=== PATIENT | male | born 1960 | race Caucasian/White ===

== ENCOUNTER → 2016-05-02 | Outpatient (CLI) | payer BC ==
--- NOTE | 2016-05-02 12:38 | DIAGNOSTIC IMAGING REPORT ---
KUB CLINICAL HISTORY: R10.9 Left flank [id number] pain COMPARISON STUDY: No previous studies for comparison. FINDINGS: Nonobstructive bowel pattern. Several punctate renal calcifications bilaterally. Benign bone island medial aspect right iliac wing. Nonobstructive bowel pattern. IMPRESSION: Bilateral nephrocalcinosis. Nonobstructive bowel pattern. Electronically signed by: Leonardo Mock M.D. 05/02/2016 12:37 PM Dictated Date/Time: 05/02/2016 12:35 PM
== END | disposition home or self-care (01) ==
LOC: C.RAD 11:44
PROVIDERS: ATTEND Family Medicine
DX: R10.9 Unspecified abdominal pain (principal); E83.59 Other disorders of calcium metabolism; N29 Other disorders of kidney and ureter in diseases classified elsewhere

== ENCOUNTER → 2016-05-02 | Outpatient (CLI) | payer BC ==
[2016-05-02 18:44] LABS: URINE APPEARANCE CLEAR (CLEAR); URINE BILIRUBIN NEG (NEG); URINE COLOR DK YELLOW; URINE NITRITE NEG (NEG); URINE PH 5.5 (4.5-7.5); UROBILINOGEN NEG (NEG)
[2016-05-02 18:55] LABS: MANUAL MICROSCOPIC REQUIRED? NO; REVIEW REQ? NO
== END | disposition home or self-care (01) ==
LOC: C.LABSPEC 17:33
PROVIDERS: ATTEND Family Medicine
DX: R10.9 Unspecified abdominal pain (principal)

== ENCOUNTER → 2016-05-08 | Outpatient (CLI) | payer BC ==
--- NOTE | 2016-05-08 15:35 | DIAGNOSTIC IMAGING REPORT ---
ABDOMEN AND PELVIS CT WITHOUT CONTRAST CT DOSE: 1530.45 mGy.cm HISTORY: Flank pain R10.9 Left flank [id number] TECHNIQUE: Multiaxial CT images of the abdomen and pelvis were performed without contrast. COMPARISON STUDY: None. FINDINGS: Lung bases are clear. Liver spleen and pancreas are unremarkable. High density bile versus gallstones are present within the gallbladder lumen. There is a 3 mm calcification lower pole right kidney considered nonobstructing. There is no evidence for an obstructing urinary tract calculus. Bowel pattern is considered nonobstructive. The appendix is normal. There are findings of diffuse colonic diverticulosis is present with prominent in the sigmoid. No well-defined evidence for acute diverticulitis present. Bladder is midline. IMPRESSION: 1. Diffuse colonic diverticulosis with no evidence of diverticulitis. 2. 3 mm nonobstructing calculus lower pole right kidney. 3. No evidence for an obstructing urinary tract calculus. 4. Normal appendix. 5. High density bile versus gallstones within the gallbladder lumen. Electronically signed by: Leonardo Mock M.D. 05/08/2016 3:33 PM Dictated Date/Time: 05/08/2016 3:27 PM
== END | disposition home or self-care (01) ==
LOC: C.CTS 15:16
PROVIDERS: ATTEND Family Medicine
DX: R10.9 Unspecified abdominal pain (principal); N20.0 Calculus of kidney

== ENCOUNTER → 2016-06-04 | Outpatient (CLI) | payer BC ==
--- NOTE | 2016-06-04 08:40 | DIAGNOSTIC IMAGING REPORT ---
BILIARY ULTRASOUND CLINICAL HISTORY: Abdominal pain COMPARISON STUDY: CT scan dated 04/30/2016 FINDINGS: No focal hepatic masses are visualized. There is no intrahepatic biliary ductal dilatation. The gallbladder contains sludge and calculi. The pancreas appears sonographically normal. There is no gallbladder wall thickening. There is no pericholecystic fluid. The common buttock measures 6 mm. There is no right-sided hydronephrosis. There is a 5 mm echogenic focus within the lower pole the right kidney, likely representing a calculus. IMPRESSION: 1. Cholelithiasis 2. 6 mm common bile duct 3. Right-sided nephrolithiasis Electronically signed by: Deniz Saldaña M.D. 06/04/2016 8:38 AM Dictated Date/Time: 06/04/2016 8:25 AM
== END | disposition home or self-care (01) ==
LOC: C.ULTRBC 07:37
PROVIDERS: ATTEND Family Medicine
DX: R10.9 Unspecified abdominal pain (principal); K80.20 Calculus of gallbladder without cholecystitis without obstruction; N20.0 Calculus of kidney

== ENCOUNTER 2017-02-06 05:07 | Inpatient (IN) | payer BC ==
[~2017-02-06] VITALS: Ht 172.7 cm; Wt 84.0 kg
[2017-02-06] MEDS ORDERED: HYDROmorphone INJ 1 MG/ML SYR IV STA (05:28)
[2017-02-06] MEDS ORDERED: ONDANSETRON INJ 2 MG/ML 2 ML VIAL IV STA (05:28)
--- NOTE | 2017-02-06 05:36 | EMERGENCY ROOM VISIT NOTE ---
History Report prepared by Allyssa: Davin Almonte Under the Supervision of: Dr. Lorene Nesbitt D.O. First contact with patient: 05:18 Chief Complaint: ABDOMINAL PAIN Stated Complaint: STOMACH, BACK PAIN-CAN'T KEEP DOWN WATER History of Present Illness The patient is a 56 year old male who presents to the Emergency Room with complaints of worsening abdominal pain starting two nights ago. The patient states that the pain got much worse around 2100 last night. He states that last night the pain became extreme in the middle of his abdomen, and he is having bloating and left sided back pain. He additionally notes that he had some chills , he was sweating, vomiting, leg cramping, and a sore throat from the vomiting. The patient denies any diarrhea, leg swelling, and any recent alcohol use. He reports that he has been urinating well, though it has been dark. The patient states that he currently has gall stones, and he has left kidney stones. The patient has no history of abdominal surgery. He states that yesterday he had toast and a tangerine for breakfast, and then he had macaroni and cheese for lunch. Source of History: patient Onset: two nights ago Position: abdomen Symptom Intensity: extreme Timing: worsening Associated Symptoms: + chills, + diaphoresis, + sorethroat, + vomiting, + back pain, No diarrhea Note: Associated symptoms: leg cramping and bloating Review of Systems See HPI for pertinent positives & negatives. A total of 10 systems reviewed and were otherwise negative. Past Medical & Surgical Medical Problems: (1) Cholangitis (2) Cholelithiasis (3) Hepatitis (4) HTN (hypertension) (5) Nephrolithiasis Family History Hypertension Kidney disease Kidney stones Social History Smoking Status: Never Smoker Marital Status: Housing Status: lives with family Occupation Status: employed Current/Historical Medications Scheduled Aspirin (Aspirin Ec), 81 MG PO DAILY Ezetimibe (Zetia), 10 MG PO DAILY Fluticasone Propionate (Nasal) (Flonase Allergy Relief), 1 SPRAY STEPHANIE BID Lisinopril (Prinivil), 20 MG PO DAILY Metoprolol Tartrate (Lopressor) (Lopressor), 50 MG PO BID Montelukast Sodium (Singulair), 10 MG PO DAILY Scheduled PRN Methocarbamol (Robaxin), 500 MG PO TID PRN for Muscle Spasms Zolpidem Tartrate (Zolpidem Tartrate), 1 TAB PO HS PRN for Sleep Allergies Coded Allergies: Codeine (Verified Allergy, Unknown, itching, 02/06/17) Morphine (Verified Adverse Reaction, Unknown, vomiting., 02/06/17) Physical Exam Vital Signs Date Time Temp Pulse Resp B/P (MAP) Pulse Ox O2 Delivery O2 Flow Rate FiO2 02/06/17 08:14 108 18 144/78 97 Room Air 02/06/17 07:10 109 18 149/97 95 Room Air 02/06/17 06:09 111 18 136/72 95 Nasal Cannula 2.0 02/06/17 06:08 96 Nasal Cannula 2.0 02/06/17 06:06 84 Room Air 02/06/17 05:41 116 02/06/17 05:08 37.1 134 20 128/76 96 Room Air Physical Exam HEENT: Head - normocephalic and atraumatic Pupils are equal, round, and reactive to light. Extraocular eye muscles are intact, and sclera are anicteric. Nose - moist nasal mucosa without discharge. Mouth - moist buccal mucosa. Oropharynx is nonerythematous and there is no tonsillar exudate or edema noted. Neck: Supple; no JVD, nuchal rigidity, cervical lymphadenopathy. Heart: Tachycardic rate and regular rhythm. There is a normal S1 and S2 with no murmurs, clicks, or gallops appreciated. Lungs: Clear to auscultation bilaterally with no wheezes, rales, or rhonchi. Abdomen: Pain in the epigastrium and right upper quadrant. Soft, nondistended, with good bowel sounds. There are no palpable pulsatile masses or hepatosplenomegaly. There is no guarding, rigidity, or rebound noted. Extremities: No evidence of cyanosis, clubbing, or edema. There are easily palpable peripheral pulses. Skin: warm and dry with good turgor and no rashes. Medical Decision & Procedures ER Provider Diagnostic Interpretation: Radiology results as stated below per my review and the radiologist's interpretation: ULTRASOUND RIGHT UPPER QUADRANT ABDOMEN CLINICAL HISTORY: Right upper quadrant abdominal pain. COMPARISON STUDY: Abdominal CT dated 05/08/2016. TECHNIQUE: Real-time, grayscale, and color flow sonography of the right upper quadrant of the abdomen was performed. Images are reviewed in the transverse and longitudinal planes. FINDINGS: Liver: The liver is normal in size and contour. The liver demonstrates heterogeneously increased echotexture suggesting steatosis There is no intrahepatic biliary ductal dilatation. The main portal vein is patent. Gallbladder: There are numerous calcified gallstones and biliary sludge. There is no gallbladder wall thickening or pericholecystic fluid. A sonographic Avila's sign is reportedly absent was not well evaluated due to analgesia. The common bile duct measures up to 0.4 cm in diameter. Pancreas: Visualized portions of the pancreatic head and body are normal in appearance. Right kidney: Survey images of the right kidney demonstrate normal size and echotexture. There is no hydronephrosis. A 5 mm nonobstructing calculus is seen in the right lower pole. Ascites: None. IMPRESSION: 1. Cholelithiasis and biliary sludge without sonographic evidence of acute cholecystitis. If there is strong clinical concern for acute cholecystitis consider nuclear hepatobiliary scan for further assessment. 2. Findings suggest hepatic steatosis. 3. Nonobstructing right renal calculus. Electronically signed by: Сергей Dong M.D. 02/06/2017 7:15 AM Dictated Date/Time: 02/06/2017 7:13 AM Laboratory Results 02/06/17 05:30 Red Blood Count 5.18, Mean Corpuscular Volume 90.7, Mean Corpuscular Hemoglobin 30.9, Mean Corpuscular Hemoglobin Concent 34.0, Mean Platelet Volume 10.0, Neutrophils (%) (Auto) 88.3, Lymphocytes (%) (Auto) 3.5, Monocytes (%) (Auto) 7.7, Eosinophils (%) (Auto) 0.0, Basophils (%) (Auto) 0.1, Neutrophils # (Auto) 14.25, Lymphocytes # (Auto) 0.57, Monocytes # (Auto) 1.25, Eosinophils # (Auto) 0.00, Basophils # (Auto) 0.02 02/06/17 05:30 Test 02/06/17 05:30 02/06/17 05:39 02/06/17 07:20 White Blood Count 16.16 K/uL (4.8-10.8) Red Blood Count 5.18 M/uL (4.7-6.1) Hemoglobin 16.0 g/dL (14.0-18.0) Hematocrit 47.0 % (42-52) Mean Corpuscular Volume 90.7 fL (80-100) Mean Corpuscular Hemoglobin 30.9 pg (25-34) Mean Corpuscular Hemoglobin Concent 34.0 g/dl (32-36) Platelet Count 191 K/uL (130-400) Mean Platelet Volume 10.0 fL (7.4-10.4) Neutrophils (%) (Auto) 88.3 % Lymphocytes (%) (Auto) 3.5 % Monocytes (%) (Auto) 7.7 % Eosinophils (%) (Auto) 0.0 % Basophils (%) (Auto) 0.1 % Neutrophils # (Auto) 14.25 K/uL (1.4-6.5) Lymphocytes # (Auto) 0.57 K/uL (1.2-3.4) Monocytes # (Auto) 1.25 K/uL (0.11-0.59) Eosinophils # (Auto) 0.00 K/uL (0-0.5) Basophils # (Auto) 0.02 K/uL (0-0.2) RDW Standard Deviation 44.9 fL (36.4-46.3) RDW Coefficient of Variation 13.7 % (11.5-14.5) Immature Granulocyte % (Auto) 0.4 % Immature Granulocyte # (Auto) 0.07 K/uL (0.00-0.02) Prothrombin Time 10.4 SECONDS (9.0-12.0) Prothromb Time International Ratio 1.0 (0.9-1.1) Anion Gap 8.0 mmol/L (3-11) Est Creatinine Clear Calc Drug Dose 53.1 ml/min Estimated GFR () 53.4 Estimated GFR (Non- 46.1 BUN/Creatinine Ratio 16.8 (10-20) Calcium Level 10.5 mg/dl (8.5-10.1) Total Bilirubin 3.0 mg/dl (0.2-1) Direct Bilirubin 1.9 mg/dl (0-0.2) Aspartate Amino Transf (AST/SGOT) 1281 U/L (15-37) Alanine Aminotransferase (ALT/SGPT) 1287 U/L (12-78) Alkaline Phosphatase 249 U/L (45-117) Total Protein 7.8 gm/dl (6.4-8.2) Albumin 4.2 gm/dl (3.4-5.0) Globulin 3.6 gm/dl (2.5-4.0) Albumin/Globulin Ratio 1.2 (0.9-2) Lipase 139 U/L (73-393) Hepatitis B Surface Antigen NEG (NEG) Hepatitis C Antibody NEG (NEG) Bedside Lactic Acid Venous 3.18 mmol/L (0.90-1.70) Urine Color DK YELLOW Urine Appearance CLEAR (CLEAR) Urine pH 7.0 (4.5-7.5) Urine Specific [place] 1.024 (1.000-1.030) Urine Protein 1+ (NEG) Urine Glucose (UA) NEG (NEG) Urine Ketones 2+ (NEG) Urine Occult Blood NEG (NEG) Urine Nitrite POS (NEG) Urine Bilirubin 1+ (NEG) Urine Urobilinogen NEG (NEG) Urine Leukocyte Esterase TRACE (NEG) Urine WBC (Auto) 1-5 /hpf (0-5) Urine RBC (Auto) 0-4 /hpf (0-4) Urine Hyaline Casts (Auto) 1-5 /lpf (0-5) Urine Epithelial Cells (Auto) 5-10 /lpf (0-5) Urine Bacteria (Auto) NEG (NEG) Laboratory results per my review. Medications Administered Medications (Trade) Dose Ordered Sig/Alana Route Start Time Stop Time Status Last Admin Dose Admin Ondansetron HCl (Zofran Inj) 4 mg NOW STAT IV 02/06/17 05:28 02/06/17 05:31 DC 02/06/17 05:42 4 MG Hydromorphone HCl (Dilaudid Inj) 1 mg NOW STAT IV 02/06/17 05:28 02/06/17 05:31 DC 02/06/17 05:43 1 MG Piperacillin Sod/ Tazobactam Sod (Zosyn Iv) 4.5 gm NOW STAT IV 02/06/17 07:27 02/06/17 07:28 DC 02/06/17 07:32 4.5 GM Ondansetron HCl (Zofran Inj) 4 mg Q6H PRN IV 02/06/17 08:30 03/08/17 08:29 02/06/17 22:07 4 MG Procedure Dilaudid IV, Zofran IV, and Zosyn IV ECG Indication: abdominal pain Rate (beats per minute): 116 Rhythm: sinus tachycardia Findings: no acute ischemic change, no ectopy Comparison ECG Date: 10/03/01 Change: The rate is faster ED Course 0518: Past medical records reviewed. The patient was evaluated in room B4. A complete history and physical exam was performed. A review of the patient's previous records reveals that in May 2016 the patient had an ultrasound of the right upper quadrant which showed cholelithiasis and right sided nephrolithiasis. 0528: Dilaudid 1mg IV, Zofran 4mg IV. the patient went for a right upper quadrant ultrasound. 0704: I reevaluated the patient, and he is comfortable. He does not need anything for the pain 0721: Discussed the patient's case with Dr. Domínguez. The patient will be evaluated for further management. 0724: I reevaluated the patient, and I discussed the results and the treatment plan with him and his . They were agreeable 0727: Zosyn 4.5gm IV Medical Decision The patient is a 56 year old male who presents to the ED with abdominal pain. Differential diagnosis includes sepsis, pancreatitis, cholecystitis, ureteral colic, and cardiac ischemia. Lab results show: Lactic acid of 3.1, white count of 16.1, 88% neutrophils, stable H&H, BUN 27, creatinine 1.6, glucose 177, total bilirubin 3, AST 1281, ALT 1287, alk phos 249, and lipase 138 This 56-year-old male patient has had intermittent abdominal pain over the past couple days that got much worse last night. Patient has significantly elevated transaminase levels. His exam is concerning for cholecystitis or cholangitis. Ultrasound showed no convincing evidence of acute cholecystitis however the patient had cholelithiasis and sludge. I was also concerned for infection as the patient had leukocytosis and an elevated lactic acid. The patient will require close observation and additional imaging to further evaluate the gallbladder. The patient was hemodynamically stable. I discussed the case with the [facility] Hospitalist and they will evaluate for further management. Medication Reconcilliation Current Medication List: was personally reviewed by me Blood Pressure Screening Patient's blood pressure: Normal blood pressure Consults Time Called: 718 Consulting Physician: Dr. Domínguez Returned Call: [phone] Discussed the patient's case with Dr. Domínguez. The patient will be evaluated for further management. Impression Primary Impression: Epigastric abdominal pain Additional Impression: Elevated transaminase level Scribe Attestation The scribe's documentation has been prepared under my direction and personally reviewed by me in its entirety. I confirm that the note above accurately reflects all work, treatment, procedures, and medical decision making performed by me. Departure Information Dispostion Being Evaluated By Hospitalist Referrals Diane Bañuelos MD (PCP) Patient Instructions My [facility] Problem Qualifiers
[2017-02-06] MEDS ORDERED: LISI20TA3 PO (05:41)
[2017-02-06] MEDS ORDERED: METO50TA16 PO (05:41)
[2017-02-06] MEDS ORDERED: ZOLP10TA6 PO (05:43)
[2017-02-06] MEDS ORDERED: ASPI81TA28 PO (05:43)
[2017-02-06] MEDS ORDERED: EZET10TA63 PO (05:43)
[2017-02-06] MEDS ORDERED: MONT1TAB3 PO (05:43)
[2017-02-06] MEDS ORDERED: METH500T37 PO (05:43)
[2017-02-06] MEDS ORDERED: FLUT0.15 NAE (05:44)
[2017-02-06 06:02] LABS: BASO % 0.1 %; BASO ABS # 0.02 K/uL (0-0.2); COMPLETE YES; IG% 0.4 %; LYMPH % 3.5 %; LYMPH ABS # 0.57 K/uL (1.2-3.4); MEAN CELL VOLUME 90.7 fL (80-100); MEAN CORPUSCULAR HEMOGLOBIN 30.9 pg (25-34); MONO % 7.7 %; NEUT % 88.3 %; PLATELET COUNT 191 K/uL (130-400); RED BLOOD COUNT 5.18 M/uL (4.7-6.1); WHITE BLOOD COUNT 16.16 K/uL (4.8-10.8)
[2017-02-06 06:16] LABS: PROTHROMBIN TIME (PATIENT) 10.4 SECONDS (9.0-12.0)
[2017-02-06 06:29] LABS: BUN/CREATININE RATIO 16.8 (10-20); CALCIUM 10.5 mg/dl (8.5-10.1); CREATININE 1.63 mg/dl (0.60-1.40); POTASSIUM 3.6 mmol/L (3.5-5.1)
[2017-02-06 06:37] LABS: ALB/GLOB RATIO 1.2 (0.9-2)
--- NOTE | 2017-02-06 07:16 | DIAGNOSTIC IMAGING REPORT ---
ULTRASOUND RIGHT UPPER QUADRANT ABDOMEN CLINICAL HISTORY: Right upper quadrant abdominal pain. COMPARISON STUDY: Abdominal CT dated 05/08/2016. TECHNIQUE: Real-time, grayscale, and color flow sonography of the right upper quadrant of the abdomen was performed. Images are reviewed in the transverse and longitudinal planes. FINDINGS: Liver: The liver is normal in size and contour. The liver demonstrates heterogeneously increased echotexture suggesting steatosis There is no intrahepatic biliary ductal dilatation. The main portal vein is patent. Gallbladder: There are numerous calcified gallstones and biliary sludge. There is no gallbladder wall thickening or pericholecystic fluid. A sonographic Avila's sign is reportedly absent was not well evaluated due to analgesia. The common bile duct measures up to 0.4 cm in diameter. Pancreas: Visualized portions of the pancreatic head and body are normal in appearance. Right kidney: Survey images of the right kidney demonstrate normal size and echotexture. There is no hydronephrosis. A 5 mm nonobstructing calculus is seen in the right lower pole. Ascites: None. IMPRESSION: 1. Cholelithiasis and biliary sludge without sonographic evidence of acute cholecystitis. If there is strong clinical concern for acute cholecystitis consider nuclear hepatobiliary scan for further assessment. 2. Findings suggest hepatic steatosis. 3. Nonobstructing right renal calculus. Electronically signed by: Сергей Dong M.D. 02/06/2017 7:15 AM Dictated Date/Time: 02/06/2017 7:13 AM
[2017-02-06] MEDS ORDERED: PIPERACILLIN/TAZOBACTAM 4.5 GM/100ML D5W IV STA (07:27)
[2017-02-06 07:49] LABS: URINE APPEARANCE CLEAR (CLEAR); URINE COLOR DK YELLOW; URINE NITRITE POS (NEG); URINE SPECIFIC GRAVITY 1.024 (1.000-1.030); UROBILINOGEN NEG (NEG)
[2017-02-06 07:50] LABS: MANUAL MICROSCOPIC REQUIRED? NO; REVIEW REQ? NO; URINE BILIRUBIN 1+ (NEG)
[2017-02-06] MEDS ORDERED: ALUMINUM/MAGNESIUM/SIMETH (MAALOX MAX) 30 ML UDC PO PRN (08:30)
[2017-02-06] MEDS ORDERED: HYDROmorphone INJ 0.5 MG/0.5 ML SYR IV PRN (08:45)
[2017-02-06] MEDS ORDERED: PIPERACILL/TAZOBAC IV 4.5 GM in DEXTROSE 5% 100ML 100 ML IV SCH (08:45)
[2017-02-06] MEDS ORDERED: HYDROmorphone INJ 1 MG/ML SYR IV PRN (08:45)
[2017-02-06] MEDS ORDERED: MONTELUKAST SOD 10 MG TAB PO SCH (09:00)
[2017-02-06 10:05] VITALS: BP 111/78; PULSE 101; TEMP 37.4; O2SAT 95; Ht 172.7 cm; Wt 84.0 kg
[2017-02-06] MEDS ORDERED: PIPERACILL/TAZOBAC CONSULT ACTIVE PRN (11:00)
[2017-02-06] MEDS: ENOXAPARIN 40 MG/0.4 ML SYR SQ SCH (11:40)
[2017-02-06] MEDS: SODIUM CHLORIDE 0.9% 1000ML 1,000 ML IV SCH ×2 (11:41→18:44)
--- NOTE | 2017-02-06 12:11 | Medical Student: [facility] ---
Med Student History & Physical Date & Time of Service: Feb 06, 2017 at 11:48 Chief Complaint: Hepatitis Primary Care Physician: Diane Bañuelos MD History of Present Illness Source: patient, spouse, hospital records Jairo is a 56-year-old male with a past history of cholelithiasis who presented this morning to the ED c/o abdominal pain, bloating, and shaking chills. He reports that last night around 2100, he had an episode of bloating with marked abdominal distension accompanied by epigastric pain. Says most of his pain is coming from his abdominal distension; does not describe it as a colicky pain or a sharp, tearing pain. Movement worsens the pain. He was unable to find a comfortable position to lie in and stated that "everything sat in my stomach." He was unable to keep any fluids down and vomited five times throughout the night. Pt also reports shaking chills. He also reports left-sided back pain, which he believes is secondary to a kidney stone. Patient has had similar, but less severe, episodes in the past that typically resolve with GasX, Tums, and rest. Past Medical/Surgical History Medical Problems: (1) Elevated transaminase level Status: Acute (2) Epigastric abdominal pain Status: Acute Family History Father: HTN, congestive heart failure, cancer (colon - says it is secondary to asbestos exposure?) Social History Smoking Status: Never Smoker Alcohol Use: none Marital Status: Occupational Status: employed Immunizations History of Influenza Vaccine: Unknown Allergies Coded Allergies: Codeine (Verified Allergy, Unknown, itching, 02/06/17) Morphine (Verified Adverse Reaction, Unknown, vomiting., 02/06/17) Medications Aspirin (Aspirin Ec), 81 MG PO DAILY Ezetimibe (Zetia), 10 MG PO DAILY Fluticasone Propionate (Nasal) (Flonase Allergy Relief), 1 SPRAY STEPHANIE BID Lisinopril (Prinivil), 20 MG PO DAILY Methocarbamol (Robaxin), 500 MG PO TID PRN for Muscle Spasms Metoprolol Tartrate (Lopressor) (Lopressor), 50 MG PO BID Montelukast Sodium (Singulair), 10 MG PO DAILY Zolpidem Tartrate (Zolpidem Tartrate), 1 TAB PO HS PRN for Sleep Review of Systems Constitutional: + fever (feels warm ), + fatigue Respiratory: No shortness of breath Abdomen: + pain, No nausea, No vomiting, No diarrhea, No constipation Musculoskeletal: + problem reported (left sided back pain) Physical Exam Vital Signs (24 Hours) Date Time Temp Pulse Resp B/P (MAP) Pulse Ox O2 Delivery O2 Flow Rate FiO2 02/06/17 10:05 37.4 101 18 111/78 95 Room Air 02/06/17 09:30 96 18 142/83 95 Room Air 02/06/17 08:14 108 18 144/78 97 Room Air 02/06/17 07:10 109 18 149/97 95 Room Air 02/06/17 06:09 111 18 136/72 95 Nasal Cannula 2.0 02/06/17 06:08 96 Nasal Cannula 2.0 02/06/17 06:06 84 Room Air 02/06/17 05:41 116 02/06/17 05:08 37.1 134 20 128/76 96 Room Air General Appearance: WD/WN, no apparent distress Head: normocephalic, atraumatic Eyes: normal inspection, EOMI Respiratory/Chest: chest non-tender, lungs clear, normal breath sounds, no respiratory distress, no accessory muscle use Cardiovascular: regular rate, rhythm, no edema, no gallop, no JVD, no murmur, normal peripheral pulses Abdomen/GI: normal bowel sounds, non tender, soft, no organomegaly Extremities/Musculoskelatal: normal inspection, no calf tenderness Neurologic/Psych: alert, normal mood/affect, oriented x 3 Skin: normal color, warm/dry, no rash Lymphatic: no adenopathy Diagnostics Laboratory Results Results Past 24 Hours Test 02/06/17 05:30 02/06/17 05:39 02/06/17 07:20 Range/Units White Blood Count 16.16 4.8-10.8 K/uL Red Blood Count 5.18 4.7-6.1 M/uL Hemoglobin 16.0 14.0-18.0 g/dL Hematocrit 47.0 42-52 % Mean Corpuscular Volume 90.7 80-100 fL Mean Corpuscular Hemoglobin 30.9 25-34 pg Mean Corpuscular Hemoglobin Concent 34.0 32-36 g/dl Platelet Count 191 130-400 K/uL Mean Platelet Volume 10.0 7.4-10.4 fL Neutrophils (%) (Auto) 88.3 % Lymphocytes (%) (Auto) 3.5 % Monocytes (%) (Auto) 7.7 % Eosinophils (%) (Auto) 0.0 % Basophils (%) (Auto) 0.1 % Neutrophils # (Auto) 14.25 1.4-6.5 K/uL Lymphocytes # (Auto) 0.57 1.2-3.4 K/uL Monocytes # (Auto) 1.25 0.11-0.59 K/uL Eosinophils # (Auto) 0.00 0-0.5 K/uL Basophils # (Auto) 0.02 0-0.2 K/uL RDW Standard Deviation 44.9 36.4-46.3 fL RDW Coefficient of Variation 13.7 11.5-14.5 % Immature Granulocyte % (Auto) 0.4 % Immature Granulocyte # (Auto) 0.07 0.00-0.02 K/uL Prothrombin Time 10.4 9.0-12.0 SECONDS Prothromb Time International Ratio 1.0 0.9-1.1 Sodium Level 136 136-145 mmol/L Potassium Level 3.6 3.5-5.1 mmol/L Chloride Level 100 98-107 mmol/L Carbon Dioxide Level 28 21-32 mmol/L Anion Gap 8.0 3-11 mmol/L Blood Urea Nitrogen 27 7-18 mg/dl Creatinine 1.63 0.60-1.40 mg/dl Est Creatinine Clear Calc Drug Dose 53.1 ml/min Estimated GFR () 53.4 Estimated GFR (Non- 46.1 BUN/Creatinine Ratio 16.8 10-20 Random Glucose 177 70-99 mg/dl Calcium Level 10.5 8.5-10.1 mg/dl Total Bilirubin 3.0 0.2-1 mg/dl Direct Bilirubin 1.9 0-0.2 mg/dl Aspartate Amino Transf (AST/SGOT) 1281 15-37 U/L Alanine Aminotransferase (ALT/SGPT) 1287 12-78 U/L Alkaline Phosphatase 249 45-117 U/L Total Protein 7.8 6.4-8.2 gm/dl Albumin 4.2 3.4-5.0 gm/dl Globulin 3.6 2.5-4.0 gm/dl Albumin/Globulin Ratio 1.2 0.9-2 Lipase 139 73-393 U/L Hepatitis B Surface Antigen NEG NEG Hepatitis C Antibody NEG NEG Bedside Lactic Acid Venous 3.18 0.90-1.70 mmol/L Urine Color DK YELLOW Urine Appearance CLEAR CLEAR Urine pH 7.0 4.5-7.5 Urine Specific [place] 1.024 1.000-1.030 Urine Protein 1+ NEG Urine Glucose (UA) NEG NEG Urine Ketones 2+ NEG Urine Occult Blood NEG NEG Urine Nitrite POS NEG Urine Bilirubin 1+ NEG Urine Urobilinogen NEG NEG Urine Leukocyte Esterase TRACE NEG Urine WBC (Auto) 1-5 0-5 /hpf Urine RBC (Auto) 0-4 0-4 /hpf Urine Hyaline Casts (Auto) 1-5 0-5 /lpf Urine Epithelial Cells (Auto) 5-10 0-5 /lpf Urine Bacteria (Auto) NEG NEG Microbiology Results 02/06/17 Blood Culture, Received Pending 02/06/17 Blood Culture, Received Pending Impression Assessment and Plan In summary, Jairo is a 56-year-old male with a history of cholelithiasis who presented to the ED with a one day history of 10/10 epigastric pain, bloating, vomiting, and shaking chills. He has experienced similar, but less severe, episodes in the past that usually resolve with GasX, Tums, and rest. 1) Hepatitis -NPO except for ice chips and meds -IV fluids - normal saline at 125 cc/hour -DVT prophylaxis with enoxaparin -continue the following home meds - lisinopril, metoprolol, singulair, and flonase -continue to monitor LFTs, CBC -continue on pip/tazo -continue with pain control with hydromorphone -awaiting GI consult -gen surgery says pt may be experiencing chronic cholecystitis, will eventually need gallbladder out -order HIDA scan to visualize gallbladder, biliary tree, and any possible obstruction Level of Care Med/Surg Advanced Directives Existing Living Will: No Existing Power of Second Cook And Baker: No Resuscitation Status FULL RESUSCITATION DVT Prophylaxis enoxaparin (Lovenox) SQ Social Service Consult None Apply
--- NOTE | 2017-02-06 12:33 | Medical Consult ---
Consultation Date of Consultation: Feb 06, 2017. Attending Physician: Sang Lopez M.D. Reason for Consultation: abd pain, elevated LFTs, sludge in gb History of Present Illness pt adm through ER with abd pain, found on w/u to have elevated TB, AST/ALT ultrasound shows gb with sludge/?stones- some chronic thickening- not diffuse. Past Medical/Surgical History Medical Problems: (1) Elevated transaminase level Status: Acute (2) Epigastric abdominal pain Status: Acute Family History Hypertension Kidney disease Kidney stones Social History Smoking Status: Never Smoker Alcohol Use: none Marital Status: Housing Status: lives with family Occupation Status: employed Allergies Coded Allergies: Codeine (Verified Allergy, Unknown, itching, 02/06/17) Morphine (Verified Adverse Reaction, Unknown, vomiting., 02/06/17) Current Inpatient Medications Current Inpatient Medications Medications (Trade) Dose Ordered Sig/Alana Route Start Time Stop Time Status Last Admin Dose Admin Enoxaparin Sodium (Lovenox Inj) 40 mg Q24H SQ 02/06/17 11:00 03/08/17 10:59 02/06/17 11:40 40 MG Al Hydrox/Mg Hydrox/Simethicone (Maalox Max Susp) 15 ml Q4H PRN PO 02/06/17 08:30 03/08/17 08:29 Ondansetron HCl (Zofran Inj) 4 mg Q6H PRN IV 02/06/17 08:30 03/08/17 08:29 Lisinopril (Zestril Tab) 20 mg DAILY PO 02/07/17 09:00 03/09/17 08:59 Metoprolol Tartrate (Lopressor Tab) 50 mg BID PO 02/06/17 21:00 03/08/17 20:59 Hydromorphone HCl (Dilaudid Inj) 0.5 mg Q4 PRN IV 02/06/17 08:45 02/20/17 08:44 Hydromorphone HCl (Dilaudid Inj) 1 mg Q4 PRN IV 02/06/17 08:45 02/20/17 08:44 Sodium Chloride 1,000 ml @ 125 mls/hr Q8H IV 02/06/17 11:15 03/08/17 11:14 02/06/17 11:41 125 MLS/HR Piperacillin Sod/ Tazobactam Sod (Consult) 1 ea UD PRN N/A 02/06/17 11:00 03/08/17 10:59 Piperacillin Sod/ Tazobactam Sod 3.375 gm/Dextrose 115 ml @ 28.75 mls/ hr Q8 IV 02/06/17 14:00 02/16/17 13:59 Review of Systems Constitutional: + chills, + sweats, No fever Respiratory: No cough, No shortness of breath Cardiovascular: No chest pain Abdomen: + pain, + nausea, + vomiting Genitourinary - Male: No dysuria Endocrine: + fatigue Integumentary: No rash Physical Exam Date Time Temp Pulse Resp B/P (MAP) Pulse Ox O2 Delivery O2 Flow Rate FiO2 02/06/17 10:05 37.4 101 18 111/78 95 Room Air 02/06/17 09:30 96 18 142/83 95 Room Air 02/06/17 08:14 108 18 144/78 97 Room Air 02/06/17 07:10 109 18 149/97 95 Room Air 02/06/17 06:09 111 18 136/72 95 Nasal Cannula 2.0 02/06/17 06:08 96 Nasal Cannula 2.0 02/06/17 06:06 84 Room Air 02/06/17 05:41 116 02/06/17 05:08 37.1 134 20 128/76 96 Room Air General Appearance: no apparent distress Head: atraumatic Eyes: + pertinent finding (mild icteris) Neck: supple Cardiovascular: regular rate, rhythm Abdomen/GI: soft, + tenderness (very mild tenderness) Neurologic/Psych: alert Skin: warm/dry Laboratory Results Last 24 Hours Test 02/06/17 05:30 02/06/17 05:39 02/06/17 07:20 White Blood Count 16.16 K/uL Red Blood Count 5.18 M/uL Hemoglobin 16.0 g/dL Hematocrit 47.0 % Mean Corpuscular Volume 90.7 fL Mean Corpuscular Hemoglobin 30.9 pg Mean Corpuscular Hemoglobin Concent 34.0 g/dl Platelet Count 191 K/uL Mean Platelet Volume 10.0 fL Neutrophils (%) (Auto) 88.3 % Lymphocytes (%) (Auto) 3.5 % Monocytes (%) (Auto) 7.7 % Eosinophils (%) (Auto) 0.0 % Basophils (%) (Auto) 0.1 % Neutrophils # (Auto) 14.25 K/uL Lymphocytes # (Auto) 0.57 K/uL Monocytes # (Auto) 1.25 K/uL Eosinophils # (Auto) 0.00 K/uL Basophils # (Auto) 0.02 K/uL RDW Standard Deviation 44.9 fL RDW Coefficient of Variation 13.7 % Immature Granulocyte % (Auto) 0.4 % Immature Granulocyte # (Auto) 0.07 K/uL Prothrombin Time 10.4 SECONDS Prothromb Time International Ratio 1.0 Sodium Level 136 mmol/L Potassium Level 3.6 mmol/L Chloride Level 100 mmol/L Carbon Dioxide Level 28 mmol/L Anion Gap 8.0 mmol/L Blood Urea Nitrogen 27 mg/dl Creatinine 1.63 mg/dl Est Creatinine Clear Calc Drug Dose 53.1 ml/min Estimated GFR () 53.4 Estimated GFR (Non- 46.1 BUN/Creatinine Ratio 16.8 Random Glucose 177 mg/dl Calcium Level 10.5 mg/dl Total Bilirubin 3.0 mg/dl Direct Bilirubin 1.9 mg/dl Aspartate Amino Transf (AST/SGOT) 1281 U/L Alanine Aminotransferase (ALT/SGPT) 1287 U/L Alkaline Phosphatase 249 U/L Total Protein 7.8 gm/dl Albumin 4.2 gm/dl Globulin 3.6 gm/dl Albumin/Globulin Ratio 1.2 Lipase 139 U/L Hepatitis B Surface Antigen NEG Hepatitis C Antibody NEG Bedside Lactic Acid Venous 3.18 mmol/L Urine Color DK YELLOW Urine Appearance CLEAR Urine pH 7.0 Urine Specific [place] 1.024 Urine Protein 1+ Urine Glucose (UA) NEG Urine Ketones 2+ Urine Occult Blood NEG Urine Nitrite POS Urine Bilirubin 1+ Urine Urobilinogen NEG Urine Leukocyte Esterase TRACE Urine WBC (Auto) 1-5 /hpf Urine RBC (Auto) 0-4 /hpf Urine Hyaline Casts (Auto) 1-5 /lpf Urine Epithelial Cells (Auto) 5-10 /lpf Urine Bacteria (Auto) NEG Assessment & Plan 02/06/17- cholelithiasis, probable chronic cholecystitis, possible choledocholithiasis with elevated TB, AST/ALT . GI evaluation pending. Will need cholecystectomy at some point- discussed with pt. Will follow for now
[2017-02-06] MEDS ORDERED: LORAZEPAM INJ 1 MG in SYRINGE 0.5 ML IV SCH (13:30)
[2017-02-06] MEDS: PIPERACILL/TAZOBAC IV 3.375 GM in DEXTROSE 5% 100ML IV SCH ×2 (13:37→21:13)
--- NOTE | 2017-02-06 13:43 | History and Physical ---
History & Physical Date & Time of Service: Feb 06, 2017 at 13:23 Chief Complaint: Hepatitis Primary Care Physician: Diane Bañuelos MD History of Present Illness pt has had a waxing and waining abdominal pain course for some time, usually associated with anorexia and right shoulder pain. he has knowledge that he had gall stones that were discovered on a CT scan looking at his renal stones. One day prior to admission he had severe central abdominal pain, dull achey, associated with right shoulder ache, 8/10, pt could not eat as the though of food made him nauseated. He did not have any change in bowel habits. He most recently( 2 months ago) restarted his Zetia and on imaging was found to have fatty liver. He is feeling comfortable at this time after pain medicine in the Er Family History Hypertension Kidney disease Kidney stones Social History Smoking Status: Never Smoker Alcohol Use: none Marital Status: Occupational Status: employed Immunizations History of Influenza Vaccine: Unknown Multi-Drug Resistant Organisms History of MDRO: No Allergies Coded Allergies: Codeine (Verified Allergy, Unknown, itching, 02/06/17) Morphine (Verified Adverse Reaction, Unknown, vomiting., 02/06/17) Home Medications Scheduled Aspirin (Aspirin Ec), 81 MG PO DAILY Ezetimibe (Zetia), 10 MG PO DAILY Fluticasone Propionate (Nasal) (Flonase Allergy Relief), 1 SPRAY STEPHANIE BID Lisinopril (Prinivil), 20 MG PO DAILY Metoprolol Tartrate (Lopressor) (Lopressor), 50 MG PO BID Montelukast Sodium (Singulair), 10 MG PO DAILY Scheduled PRN Methocarbamol (Robaxin), 500 MG PO TID PRN for Muscle Spasms Zolpidem Tartrate (Zolpidem Tartrate), 1 TAB PO HS PRN for Sleep Review of Systems Constitutional: + weakness, No fever, No chills Eyes: No worsening of vision, No eye pain Respiratory: No cough, No sputum Cardiovascular: No chest pain, No orthopnea Abdomen: + pain, + nausea, No vomiting, No diarrhea, No constipation Musculoskeletal: No joint pain, No muscle pain Genitourinary - Male: No hematuria, No dysuria, No urinary frequency Neurologic: No memory loss, No paralysis, No weakness Psychiatric: No depression symptoms, No anhedonism Endocrine: No fatigue, No excessive thirst Hematologic / Lymphatic: No abnormal bleeding/bruising, No clotting problems Integumentary: No rash, No itch Physical Exam Vital Signs Date Time Temp Pulse Resp B/P (MAP) Pulse Ox O2 Delivery O2 Flow Rate FiO2 02/06/17 10:05 37.4 101 18 111/78 95 Room Air 02/06/17 09:30 96 18 142/83 95 Room Air 02/06/17 08:14 108 18 144/78 97 Room Air 02/06/17 07:10 109 18 149/97 95 Room Air 02/06/17 06:09 111 18 136/72 95 Nasal Cannula 2.0 02/06/17 06:08 96 Nasal Cannula 2.0 02/06/17 06:06 84 Room Air 02/06/17 05:41 116 02/06/17 05:08 37.1 134 20 128/76 96 Room Air General Appearance: WD/WN, + mild distress Head: normocephalic, atraumatic Eyes: normal inspection, PERRL, sclerae normal ENT: hearing grossly normal, pharynx normal Respiratory/Chest: chest non-tender Cardiovascular: regular rate, rhythm, no murmur Abdomen/GI: normal bowel sounds, soft, no organomegaly, + tenderness Back: no CVA tenderness, no muscle spasm, normal range of motion Extremities/Musculoskelatal: no pedal edema, normal range of motion Neurologic/Psych: alert, oriented x 3 Skin: normal color, warm/dry, no rash Diagnostics Laboratory Results Results Past 24 Hours Test 02/06/17 05:30 02/06/17 05:39 02/06/17 07:20 Range/Units White Blood Count 16.16 4.8-10.8 K/uL Red Blood Count 5.18 4.7-6.1 M/uL Hemoglobin 16.0 14.0-18.0 g/dL Hematocrit 47.0 42-52 % Mean Corpuscular Volume 90.7 80-100 fL Mean Corpuscular Hemoglobin 30.9 25-34 pg Mean Corpuscular Hemoglobin Concent 34.0 32-36 g/dl Platelet Count 191 130-400 K/uL Mean Platelet Volume 10.0 7.4-10.4 fL Neutrophils (%) (Auto) 88.3 % Lymphocytes (%) (Auto) 3.5 % Monocytes (%) (Auto) 7.7 % Eosinophils (%) (Auto) 0.0 % Basophils (%) (Auto) 0.1 % Neutrophils # (Auto) 14.25 1.4-6.5 K/uL Lymphocytes # (Auto) 0.57 1.2-3.4 K/uL Monocytes # (Auto) 1.25 0.11-0.59 K/uL Eosinophils # (Auto) 0.00 0-0.5 K/uL Basophils # (Auto) 0.02 0-0.2 K/uL RDW Standard Deviation 44.9 36.4-46.3 fL RDW Coefficient of Variation 13.7 11.5-14.5 % Immature Granulocyte % (Auto) 0.4 % Immature Granulocyte # (Auto) 0.07 0.00-0.02 K/uL Prothrombin Time 10.4 9.0-12.0 SECONDS Prothromb Time International Ratio 1.0 0.9-1.1 Sodium Level 136 136-145 mmol/L Potassium Level 3.6 3.5-5.1 mmol/L Chloride Level 100 98-107 mmol/L Carbon Dioxide Level 28 21-32 mmol/L Anion Gap 8.0 3-11 mmol/L Blood Urea Nitrogen 27 7-18 mg/dl Creatinine 1.63 0.60-1.40 mg/dl Est Creatinine Clear Calc Drug Dose 53.1 ml/min Estimated GFR () 53.4 Estimated GFR (Non- 46.1 BUN/Creatinine Ratio 16.8 10-20 Random Glucose 177 70-99 mg/dl Calcium Level 10.5 8.5-10.1 mg/dl Total Bilirubin 3.0 0.2-1 mg/dl Direct Bilirubin 1.9 0-0.2 mg/dl Aspartate Amino Transf (AST/SGOT) 1281 15-37 U/L Alanine Aminotransferase (ALT/SGPT) 1287 12-78 U/L Alkaline Phosphatase 249 45-117 U/L Total Protein 7.8 6.4-8.2 gm/dl Albumin 4.2 3.4-5.0 gm/dl Globulin 3.6 2.5-4.0 gm/dl Albumin/Globulin Ratio 1.2 0.9-2 Lipase 139 73-393 U/L Hepatitis B Surface Antigen NEG NEG Hepatitis C Antibody NEG NEG Bedside Lactic Acid Venous 3.18 0.90-1.70 mmol/L Urine Color DK YELLOW Urine Appearance CLEAR CLEAR Urine pH 7.0 4.5-7.5 Urine Specific [place] 1.024 1.000-1.030 Urine Protein 1+ NEG Urine Glucose (UA) NEG NEG Urine Ketones 2+ NEG Urine Occult Blood NEG NEG Urine Nitrite POS NEG Urine Bilirubin 1+ NEG Urine Urobilinogen NEG NEG Urine Leukocyte Esterase TRACE NEG Urine WBC (Auto) 1-5 0-5 /hpf Urine RBC (Auto) 0-4 0-4 /hpf Urine Hyaline Casts (Auto) 1-5 0-5 /lpf Urine Epithelial Cells (Auto) 5-10 0-5 /lpf Urine Bacteria (Auto) NEG NEG Microbiology Results 02/06/17 Blood Culture, Received Pending 02/06/17 Blood Culture, Received Pending Diagnostic Radiology GB ultrasound lee show biliary sludge, no comment on enlarged CBD CXR normal Impression Assessment and Plan 56 m with hepatitis on presentation and concern for cholecystitis, he has referred pain in his right shoulder Hepatitis, does have fatty liver on US, did just start zetia, check viral serology, Gen surg and GI medicine consult. will keep npo except meds, has pain and nausea control, iv h2 sb, and antibiotics of zosyn and cultures. follow transaminases HTN will continue lisinopril 20 mg and metoprolol 50 mg xl Elevated lactic acid, will repeat and continue ivf enoxaparin for DVT prevention Advanced Directives Existing Living Will: No Existing Power of Bulk Fluids Handler: No VTE Prophylaxis VTE Risk Assessment Done? Y/N: Yes Risk Level: Moderate
[2017-02-06] MEDS ORDERED: FAMOTIDINE IV INJ 20 MG in DEXTROSE 5% 100ML 100 ML IV SCH (13:45)
[2017-02-06] MEDS: FAMOTIDINE IV INJ 20 MG in SYRINGE 3 ML IV SCH (14:26)
[2017-02-06 15:13] VITALS: BP 166/85; PULSE 95; TEMP 37.5; O2SAT 94
[2017-02-06] MEDS: ONDANSETRON INJ 2 MG/ML 2 ML VIAL IV PRN ×2 (15:16→22:07)
[2017-02-06] MEDS ORDERED: KETOROLAC TROMETHAMINE 30 MG/ML VIAL ONE (15:48)
--- NOTE | 2017-02-06 17:32 | DIAGNOSTIC IMAGING REPORT ---
MRCP CLINICAL HISTORY: elevated LFTs, gallstones, r/o choledocholithiasis pain. Nausea. TECHNIQUE: Multiaxial MRI acquisition COMPARISON STUDY: Right upper quadrant ultrasound 02/06/2017 FINDINGS: Combination of gallstones and sludge within the gallbladder lumen. No significant gallbladder wall thickening or pericholecystic edematous change. Pancreas is uniform throughout. No dilatation of the pancreatic duct. Several very small renal cysts. Trace prior renal infiltrative change considered nonspecific. A low-grade pyelonephritis is not entirely excluded. No evidence for hydronephrosis. Bowel pattern is nonobstructive. No significant adenopathy. MRCP component of the study shows no evidence for choledocholithiasis. No distention of the pancreatic duct. IMPRESSION: 1. Combination of gallstones and sludge within the gallbladder lumen. 2. No significant gallbladder wall thickening or pericholecystic edematous change. 3. No evidence for choledocholithiasis, nor is there evidence for distention of the common bile duct or pancreatic duct. 4. Mild fatty replacement of the liver. 5. Mild perirenal infiltrative change of the perinephric fat raising the possibility of age-related change versus secondary evidence for pyelonephritis. Correlation with urinalysis is suggested. The above report was generated using voice recognition software. It may contain grammatical, syntax or spelling errors. Electronically signed by: Leonardo Mock M.D. 02/06/2017 5:31 PM Dictated Date/Time: 02/06/2017 5:24 PM
--- NOTE | 2017-02-06 17:48 | Medical Consult ---
Consultation Note Date of Service Feb 06, 2017. Consultation Note Attg add: I reviewed chart and labs, interviewed and examined pt. Pt with abrupt onset of painful jaundice. Noted to have markedly elevated transaminases and mildly increased bilirubin. Imaging shows gstones but no yosvany dil. Clinical presentation suggestive of stone disease, despite normal imaging. Hepatitis (infectious, toxic, autoimmune) also possible. Check APAP level, r/o venous thrombosis, serologic w/u for viral hep and AIH. Plan EUS to r/o stone disease +/- liver bx.
--- NOTE | 2017-02-06 17:52 | Gastrointestinal Consultation ---
Gastrointestinal Consultation Date of Consultation: Feb 06, 2017 Attending Physician: Dr. Lopez Consulting Physician: Dr. Dimas Reason for Consultation: Cholangitis History of Present Illness Patient is a 56 year old male patient of DR. Fan with a hx of HTN, nephrolithiasis presented to the ED early today with upper abdomen pain. Dr. Pickett was consulted for cholangitis and he asked our group to provide care for this patient as he may need an ERCP. The pt tells me that he has had intermittent episodes of epigastric pain with nausea, a few times a year. On Saturday night, he was awakened from sleep with this type pain. He the pain improved and resolved by noon on Saturday. He was able to eat a little macaroni and cheese. That evening, the pain returned, more severe and continued all night. He also had several episodes of vomiting last night and this morning as well as abdominal distention as well as a few episodes of diarrhea. He has felt chilled, with sweats. On arrival, LFTs were significantly elevated: T bili 3, D bili 1.9. AST 1281, ALT 1287, Alk phos 249. Ultrasound with gallbladder stones and sludge, no biliary ductal dilation or choledocholithiasis. Past Medical/Surgical History Medical Problems: (1) Elevated transaminase level Status: Acute (2) Epigastric abdominal pain Status: Acute Past Medical History: 1. HTN 2. Nephrolithiasis 3. Cholelithiasis Past Surgical History: 1. Lithotripsy 2. Ureteral stents Family History Hypertension Kidney disease Kidney stones Social History Smoking Status: Never Smoker Marital Status: Housing Status: lives with family Occupation Status: employed Allergies Coded Allergies: Codeine (Verified Allergy, Unknown, itching, 02/06/17) Morphine (Verified Adverse Reaction, Unknown, vomiting., 02/06/17) Current Medications Home Meds and Scripts Medications Dose Route/Sig Max Daily Dose Days Date Category Flonase Allergy Relief (Fluticasone Propionate (Nasal)) 50 Mcg/Act Spr 1 [employer] STEPHANIE BID 02/06/17 Reported Robaxin (Methocarbamol) 500 Mg Tab 500 Mg PO TID PRN 02/06/17 Reported Zolpidem Tartrate 10 Mg Tab 1 Tab PO HS PRN 02/06/17 Reported Singulair (Montelukast Sodium) 10 Mg Tab 10 Mg PO DAILY 02/06/17 Reported Zetia (Ezetimibe) 10 Mg Tab 10 Mg PO DAILY 02/06/17 Reported Aspirin Ec (Aspirin) 81 Mg Tab 81 Mg PO DAILY 02/06/17 Reported Prinivil (Lisinopril) 20 Mg Tab 20 Mg PO DAILY 02/06/17 Reported Lopressor (Metoprolol Tartrate) 50 Mg Tab 50 Mg PO BID 02/06/17 Reported Review of Systems Constitutional: + chills, No fever, No sweats, No weight loss, No weakness Eyes: No eye pain, No redness ENT: No sore throat, No trouble swallowing, No pain on swallowing Respiratory: No cough, No wheezing, No shortness of breath, No dyspnea on exertion Cardiac: No chest pain, No edema, No palpitations Abdomen: + see HPI, + pain, + nausea, + vomiting, + diarrhea Neuro: No memory loss, No weakness, No numbness/tingling, No vertigo, No balance problems Psych: No depression symptoms, No anxiety, No insomnia Heme: No abnormal bleeding/bruising, No night sweats Endo: No excessive thirst, No excessive urination Skin: No rash, No itch, No new/changing skin lesions, No jaundice Physical Exam Date Time Temp Pulse Resp B/P (MAP) Pulse Ox O2 Delivery O2 Flow Rate FiO2 02/06/17 15:13 37.5 95 18 166/85 (112) 94 Room Air 02/06/17 10:05 37.4 101 18 111/78 95 Room Air 02/06/17 09:30 96 18 142/83 95 Room Air 02/06/17 08:14 108 18 144/78 97 Room Air 02/06/17 07:10 109 18 149/97 95 Room Air 02/06/17 06:09 111 18 136/72 95 Nasal Cannula 2.0 02/06/17 06:08 96 Nasal Cannula 2.0 02/06/17 06:06 84 Room Air 02/06/17 05:41 116 02/06/17 05:08 37.1 134 20 128/76 96 Room Air General Appearance: no apparent distress Eyes: normal inspection, EOMI Neck: supple, no adenopathy, thyroid normal Respiratory/Chest: chest non-tender, lungs clear, normal breath sounds, no accessory muscle use Cardiovascular: regular rate, rhythm, no JVD, no murmur Abdomen: normal bowel sounds, soft, no organomegaly, + tenderness (moderate epigastric tenderness) Extremities: normal inspection, no pedal edema, normal capillary refill Neurologic/Psych: alert, normal mood/affect, oriented x 3 Skin: normal color, no jaundice, warm/dry, no rash Laboratory Results Last 24 Hours Test 02/06/17 05:30 02/06/17 05:39 02/06/17 07:20 02/06/17 13:50 White Blood Count 16.16 K/uL Red Blood Count 5.18 M/uL Hemoglobin 16.0 g/dL Hematocrit 47.0 % Mean Corpuscular Volume 90.7 fL Mean Corpuscular Hemoglobin 30.9 pg Mean Corpuscular Hemoglobin Concent 34.0 g/dl Platelet Count 191 K/uL Mean Platelet Volume 10.0 fL Neutrophils (%) (Auto) 88.3 % Lymphocytes (%) (Auto) 3.5 % Monocytes (%) (Auto) 7.7 % Eosinophils (%) (Auto) 0.0 % Basophils (%) (Auto) 0.1 % Neutrophils # (Auto) 14.25 K/uL Lymphocytes # (Auto) 0.57 K/uL Monocytes # (Auto) 1.25 K/uL Eosinophils # (Auto) 0.00 K/uL Basophils # (Auto) 0.02 K/uL RDW Standard Deviation 44.9 fL RDW Coefficient of Variation 13.7 % Immature Granulocyte % (Auto) 0.4 % Immature Granulocyte # (Auto) 0.07 K/uL Prothrombin Time 10.4 SECONDS Prothromb Time International Ratio 1.0 Sodium Level 136 mmol/L Potassium Level 3.6 mmol/L Chloride Level 100 mmol/L Carbon Dioxide Level 28 mmol/L Anion Gap 8.0 mmol/L Blood Urea Nitrogen 27 mg/dl Creatinine 1.63 mg/dl Est Creatinine Clear Calc Drug Dose 53.1 ml/min Estimated GFR () 53.4 Estimated GFR (Non- 46.1 BUN/Creatinine Ratio 16.8 Random Glucose 177 mg/dl Calcium Level 10.5 mg/dl Total Bilirubin 3.0 mg/dl Direct Bilirubin 1.9 mg/dl Aspartate Amino Transf (AST/SGOT) 1281 U/L Alanine Aminotransferase (ALT/SGPT) 1287 U/L Alkaline Phosphatase 249 U/L Total Protein 7.8 gm/dl Albumin 4.2 gm/dl Globulin 3.6 gm/dl Albumin/Globulin Ratio 1.2 Lipase 139 U/L Hepatitis B Surface Antigen NEG Hepatitis C Antibody NEG Bedside Lactic Acid Venous 3.18 mmol/L Urine Color DK YELLOW Urine Appearance CLEAR Urine pH 7.0 Urine Specific [place] 1.024 Urine Protein 1+ Urine Glucose (UA) NEG Urine Ketones 2+ Urine Occult Blood NEG Urine Nitrite POS Urine Bilirubin 1+ Urine Urobilinogen NEG Urine Leukocyte Esterase TRACE Urine WBC (Auto) 1-5 /hpf Urine RBC (Auto) 0-4 /hpf Urine Hyaline Casts (Auto) 1-5 /lpf Urine Epithelial Cells (Auto) 5-10 /lpf Urine Bacteria (Auto) NEG Lactic Acid Level 1.5 mmol/L Impression Patient is a 56 year old male with biliary colic and elevated LFTs. US w/o evidence of choledocholithiasis. Most likely he has acute cholecystitis w/o choledocholithiasis, though this should be ruled out with MRCP. Also considered is viral hepatitis and tylenol tox. Plan 1. MRCP was ordered and is (-) for choledocholithiasis. 2. Surgery has already seen this pt and is following. He will need cholecystectomy with timing to be determined by surgery 3. Viral hepatitis serology. 4. Tylenol level. 5. If above labs normal, GI will watch peripherally.
[2017-02-06 21:11] VITALS: BP 160/82; PULSE 95
[2017-02-06] MEDS: METOPROLOL TARTRATE 50 MG TAB PO SCH (21:13)
[2017-02-06] MEDS: KETOROLAC TROMETHAMINE 30 MG/ML VIAL IV PRN (22:07)
--- NOTE | 2017-02-06 22:45 | DIAGNOSTIC IMAGING REPORT ---
DUPLEX PORTAL HEPATIC VEINS HISTORY: 56 years-old Male doppler to r/o pVT, budd chiari cholelithiasis and hepatic steatosis. COMPARISON: Right upper quadrant ultrasound of same day at 6:28 AM, MRCP of same day TECHNIQUE: Multiple real-time sonographic images of the liver and hepatic vessels were obtained assessing grayscale appearance, color and spectral flow. FINDINGS: Liver measures up to 15.3 cm in length. There is increased echogenicity of the liver suggesting fatty infiltration. Hepatopedal flow is noted within the main, left and right portal veins without evidence of thrombosis. Normal phasic waveforms are seen within the hepatic veins without evidence of hepatic venous thrombosis. Normal phasic hepatic arterial waveforms are also noted with peak systolic velocity measured at 159 cm/s. Splenic vein appears patent. IMPRESSION: 1. Normal color and spectral analysis of the hepatic vasculature. 2. Hepatic steatosis. The above report was generated using voice recognition software. It may contain grammatical, syntax or spelling errors. Electronically signed by: Darshan Villaseñor M.D. 02/06/2017 10:43 PM Dictated Date/Time: 02/06/2017 10:40 PM
[2017-02-06 23:05] VITALS: BP 157/82; PULSE 79; TEMP 37; O2SAT 90
[2017-02-07] VITALS (7 sets, daily range): BP systolic 138–172; BP diastolic 72–83; PULSE 69–78; TEMP 36.9–37.6; O2SAT 92–98
[2017-02-07] MEDS: SODIUM CHLORIDE 0.9% 1000ML 1,000 ML IV SCH ×4 (00:58→23:22)
[2017-02-07] MEDS: FAMOTIDINE IV INJ 20 MG in SYRINGE 3 ML IV SCH ×2 (00:58→14:07)
[2017-02-07] MEDS: PIPERACILL/TAZOBAC IV 3.375 GM in DEXTROSE 5% 100ML IV SCH ×3 (05:07→21:20)
[2017-02-07 06:30] LABS: HEMATOCRIT 40.6 % (42-52); MEAN CELL VOLUME 92.3 fL (80-100); MEAN CORPUSCULAR HEMOGLOBIN 30.7 pg (25-34); MEAN CORPUSCULAR HGB CONC 33.3 g/dl (32-36); PLATELET COUNT 153 K/uL (130-400); WHITE BLOOD COUNT 9.82 K/uL (4.8-10.8)
--- NOTE | 2017-02-07 07:03 | Surgery Progress Note ---
Surgery Progress Note Date of Service Feb 07, 2017. Subjective no acute chgs- MRCP, hepatic u/s negative Objective Vital Signs: Date Time Temp Pulse Resp B/P (MAP) Pulse Ox O2 Delivery O2 Flow Rate FiO2 02/06/17 23:05 37.0 79 16 157/82 (107) 90 Room Air 02/06/17 21:11 95 160/82 (108) 02/06/17 20:05 Room Air 02/06/17 15:13 37.5 95 18 166/85 (112) 94 Room Air 02/06/17 10:05 37.4 101 18 111/78 95 Room Air 02/06/17 09:30 96 18 142/83 95 Room Air 02/06/17 08:14 108 18 144/78 97 Room Air 02/06/17 07:10 109 18 149/97 95 Room Air General Appearance: no apparent distress Respiratory/Chest: no respiratory distress Abdomen: soft Laboratory Results: Results Past 24 Hours Test 02/06/17 07:20 02/06/17 13:50 02/06/17 18:00 02/07/17 05:53 Range/Units Urine Color DK YELLOW Urine Appearance CLEAR CLEAR Urine pH 7.0 4.5-7.5 Urine Specific [place] 1.024 1.000-1.030 Urine Protein 1+ NEG Urine Glucose (UA) NEG NEG Urine Ketones 2+ NEG Urine Occult Blood NEG NEG Urine Nitrite POS NEG Urine Bilirubin 1+ NEG Urine Urobilinogen NEG NEG Urine Leukocyte Esterase TRACE NEG Urine WBC (Auto) 1-5 0-5 /hpf Urine RBC (Auto) 0-4 0-4 /hpf Urine Hyaline Casts (Auto) 1-5 0-5 /lpf Urine Epithelial Cells (Auto) 5-10 0-5 /lpf Urine Bacteria (Auto) NEG NEG Lactic Acid Level 1.5 0.4-2.0 mmol/L White Blood Count 9.82 4.8-10.8 K/uL Red Blood Count 4.40 4.7-6.1 M/uL Hemoglobin 13.5 14.0-18.0 g/dL Hematocrit 40.6 42-52 % Mean Corpuscular Volume 92.3 80-100 fL Mean Corpuscular Hemoglobin 30.7 25-34 pg Mean Corpuscular Hemoglobin Concent 33.3 32-36 g/dl RDW Standard Deviation 47.8 36.4-46.3 fL RDW Coefficient of Variation 14.0 11.5-14.5 % Platelet Count 153 130-400 K/uL Mean Platelet Volume 10.0 7.4-10.4 fL Assessment & Plan 02/07/17- will check with GI team- proceed with lap ariane depending on their plan
[2017-02-07 07:16] LABS: BUN/CREATININE RATIO 14.6 (10-20); CALCIUM 8.3 mg/dl (8.5-10.1); CREATININE 1.64 mg/dl (0.60-1.40)
[2017-02-07] MEDS: METOPROLOL TARTRATE 50 MG TAB PO SCH ×2 (07:47→21:20)
[2017-02-07] MEDS: LISINOPRIL 20 MG TAB PO SCH (07:48)
[2017-02-07] MEDS ORDERED: SINCALIDE INJ 1.7 MCG in SODIUM CHLORIDE 0.9% 100ML 100 ML IV SCH (09:00)
--- NOTE | 2017-02-07 09:44 | DIAGNOSTIC IMAGING REPORT ---
NUCLEAR HEPATOBILIARY SCAN WITH EJECTION FRACTION IMAGING CLINICAL HISTORY: Right upper quadrant abdominal pain. COMPARISON STUDY: Abdominal ultrasound dated 02/06/2017. TECHNIQUE: Dynamic images of the liver and anterior abdomen were obtained every 5 minutes for a total of 60 minutes following the IV administration of 5.5mCi of technetium 99m Choletec. Additional imaging could not be performed due to patient discomfort. FINDINGS: The hepatobiliary scan shows prompt and homogeneous hepatic uptake. There is no visualization of the gallbladder by 60 minutes. No bowel activity is seen. IMPRESSION: There is no visualization of the gallbladder by 60 minutes and no bowel activity is identified. The findings are highly concerning for acute cholecystitis. The patient was unable to tolerate additional delayed imaging. Electronically signed by: Сергей Dong M.D. 02/07/2017 9:42 AM Dictated Date/Time: 02/07/2017 9:38 AM
[2017-02-07] MEDS: KETOROLAC TROMETHAMINE 30 MG/ML VIAL IV PRN ×2 (10:08→16:48)
[2017-02-07] MEDS: ONDANSETRON INJ 2 MG/ML 2 ML VIAL IV PRN (10:09)
[2017-02-07] MEDS: HydrALAZINE HCL 20 MG/ML VIAL IV. SCH ×2 (10:09→18:26)
--- NOTE | 2017-02-07 10:11 | Clinical Documentation Query ---
MARLENY Marie : CLINICAL DOCUMENTATION QUERY Patient is a 56 year old male admitted for evaluation and treatment of abdominal pain, referred right shoulder pain, and anorexia. Admission BUN, creatinine, and estimated GFR of 27 mg/dl, 1.63 mg/dl, and 46 ml/min. No documented history of CKD. He is being treated with IVF and monitored with serial chemistries. In your clinical opinion is this patient being managed for: ( ) LESLI ( ) Not Agree ( ) Other explanation of clinical findings (Please Explain) ( ) Unable to determine (Please Define) ( ) Need to Discuss The medical record reflects the following clinical findings, treatment, and risk factors. Clinical Indicators: As above Treatment: IVF, serial chemistries Risk Factors: Acute cholecystitis associated anorexia Please clarify and document your clinical opinion in the progress notes and discharge summary. Terms such as "probable", "suspected", "likely", "questionable", "possible", or "still to be ruled out" are acceptable. IF IN AGREEMENT, YOU MUST DOCUMENT ABOVE DIAGNOSTIC STATEMENT IN DAILY PROGRESS NOTES AND DISCHARGE SUMMARY. This document is not part of the patient's record. Thank You, Amauri Perez, RN [phone]
--- NOTE | 2017-02-07 10:37 | Gastroenterology Progress Note ---
Progress Note Date of Service: Feb 07, 2017 Subjective Pt evaluation today including: conversation w/ patient, physical exam, chart review, lab review, review of studies, review of inpatient medication list Mr. Thibodeaux is a 56 yr old male patient who was presented yesterday with biliary colic symptoms and LFTs were markedly elevated. Today AST/ALT dramatically decreased but T/B dramatically increased. Pt continues with abdominal pain, nausea. Also headache, likely related to interruption in beta sb and resultant hypertension, now being addressed by primary. Had leukocytosis, now resolved on Zosyn. Review of Systems Constitutional: + fever (pt feels chills/sweats, no measured fevers), + chills , + sweats Respiratory: No cough Cardiac: No chest pain Abdomen: + pain (worse in the LLQ but present everywhere), + nausea, No vomiting, No diarrhea, No constipation, No GI bleeding Male : No dysuria Neuro: No memory loss Psych: No depression symptoms Heme: No abnormal bleeding/bruising Endo: + fatigue Skin: + jaundice (new jaundice this morning) Medications Current Inpatient Medications Medications (Trade) Dose Ordered Sig/Alana Route Start Time Stop Time Status Last Admin Dose Admin Enoxaparin Sodium (Lovenox Inj) 40 mg Q24H SQ 02/06/17 11:00 03/08/17 10:59 02/06/17 11:40 40 MG Al Hydrox/Mg Hydrox/Simethicone (Maalox Max Susp) 15 ml Q4H PRN PO 02/06/17 08:30 03/08/17 08:29 Ondansetron HCl (Zofran Inj) 4 mg Q6H PRN IV 02/06/17 08:30 03/08/17 08:29 02/07/17 10:09 4 MG Lisinopril (Zestril Tab) 20 mg DAILY PO 02/07/17 09:00 03/09/17 08:59 02/07/17 07:48 20 MG Metoprolol Tartrate (Lopressor Tab) 50 mg BID PO 02/06/17 21:00 03/08/17 20:59 02/07/17 07:47 50 MG Hydromorphone HCl (Dilaudid Inj) 0.5 mg Q4 PRN IV 02/06/17 08:45 02/20/17 08:44 Hydromorphone HCl (Dilaudid Inj) 1 mg Q4 PRN IV 02/06/17 08:45 02/20/17 08:44 Sodium Chloride 1,000 ml @ 150 mls/hr Q6H40M IV 02/06/17 11:15 03/08/17 11:14 02/07/17 08:12 150 MLS/HR Piperacillin Sod/ Tazobactam Sod (Consult) 1 ea UD PRN N/A 02/06/17 11:00 03/08/17 10:59 Piperacillin Sod/ Tazobactam Sod 3.375 gm/Dextrose 115 ml @ 28.75 mls/ hr Q8 IV 02/06/17 14:00 02/16/17 13:59 02/07/17 05:07 28.75 MLS/HR Famotidine 20 mg/ Syringe 5 ml @ 2.5 mls/min Q12H IV 02/06/17 14:00 03/08/17 13:59 02/07/17 00:58 2.5 MLS/MIN Ketorolac Tromethamine (Toradol Inj) 30 mg Q6H PRN IV 02/06/17 15:45 02/11/17 15:44 02/07/17 10:08 30 MG Sincalide 1.7 mcg/ Sodium Chloride 101.7 ml @ 200 mls/hr TODAY@0900 IV 02/07/17 09:00 02/07/17 18:00 Hydralazine HCl (HydrALAZINE INJ) 5 mg Q8H IV. 02/07/17 10:00 03/09/17 09:59 02/07/17 10:09 5 MG Objective Vital Signs Date Time Temp Pulse Resp B/P (MAP) Pulse Ox O2 Delivery O2 Flow Rate FiO2 02/07/17 09:59 69 151/77 (101) 02/07/17 07:48 169/83 (111) 02/07/17 07:12 37.0 78 18 160/80 (106) 92 Room Air 02/06/17 23:05 37.0 79 16 157/82 (107) 90 Room Air 02/06/17 21:11 95 160/82 (108) 02/06/17 20:05 Room Air 02/06/17 15:13 37.5 95 18 166/85 (112) 94 Room Air Physical Exam General Appearance: + mild distress (tired, LLQ pain and diffuse abdomen discomfort, nausea) Neck: no JVD Respiratory/Chest: lungs clear Cardiovascular: regular rate, rhythm, no JVD, no murmur Abdomen: soft, + tenderness (mild epigastrric tenderness) Extremities: no pedal edema Neurologic/Psych: alert, normal mood/affect, oriented x 3 Skin: + jaundice Laboratory Results Last 24 Hours Test 02/06/17 13:50 02/06/17 18:00 02/07/17 05:53 02/07/17 08:03 Lactic Acid Level 1.5 mmol/L White Blood Count 9.82 K/uL Red Blood Count 4.40 M/uL Hemoglobin 13.5 g/dL Hematocrit 40.6 % Mean Corpuscular Volume 92.3 fL Mean Corpuscular Hemoglobin 30.7 pg Mean Corpuscular Hemoglobin Concent 33.3 g/dl RDW Standard Deviation 47.8 fL RDW Coefficient of Variation 14.0 % Platelet Count 153 K/uL Mean Platelet Volume 10.0 fL Sodium Level 139 mmol/L Potassium Level 4.0 mmol/L Chloride Level 104 mmol/L Carbon Dioxide Level 27 mmol/L Anion Gap 8.0 mmol/L Blood Urea Nitrogen 24 mg/dl Creatinine 1.64 mg/dl Est Creatinine Clear Calc Drug Dose 52.5 ml/min Estimated GFR () 53.0 Estimated GFR (Non- 45.7 BUN/Creatinine Ratio 14.6 Random Glucose 145 mg/dl Calcium Level 8.3 mg/dl Total Bilirubin 7.0 mg/dl Direct Bilirubin 5.6 mg/dl Aspartate Amino Transf (AST/SGOT) 229 U/L Alanine Aminotransferase (ALT/SGPT) 617 U/L Alkaline Phosphatase 177 U/L Total Protein 6.1 gm/dl Albumin 3.0 gm/dl Globulin 3.1 gm/dl Albumin/Globulin Ratio 1.0 Lipase 107 U/L Immunoglobulin G 639.0 mg/dL Assessment and Plan Mr. Thibodeaux is a 56 yr old male with jaundice, biliary colic. Despite imaging of a normal CBD, his clinical presentation is most suggestive of choledocholithiasis/possible cholangitis that has responded to Zosyn. He is hemodynamically stable. Plan: 1. Discussed with Dr. Dimas, then Dr. Johnson Perkins and Dr. Hipolito Canales. 2. Plan is for EUS/possible ERCP tomorrow afternoon (listed as add on) with cholecystectomy to follow. 3. Today: clear liquids po. 4. Continue zosyn. 5. Will check CBC, CMP with LFTs, INR tomorrow AM.
[2017-02-07] MEDS: ENOXAPARIN 40 MG/0.4 ML SYR SQ SCH (11:14)
--- NOTE | 2017-02-07 13:20 | Anesthesiology Progress Note ---
Pre-OP Anesthesia Assessment Date of Note Feb 07, 2017. Review patient information reviewed, chart reviewed, labs reviewed, acceptable for surgery Notes 56 yo male diagnosed with cholelithiasis, cholangitis and hepatitis. Scheduled for EUS/ERCP/cholecystectomy. PMH is significant for HTN. Mild elevation of creatinine is noted. He has had GA in the past without problems. GA discussed. Pt expressed understanding and signed informed consent
[2017-02-07] MEDS ORDERED: KETOROLAC TROMETHAMINE 30 MG/ML VIAL IV STA (13:42)
[2017-02-07] MEDS ORDERED: PROMETHAZINE HCL INJ 25 MG in SODIUM CHLORIDE 0.9% 50ML 50 ML IV ONE (14:00)
--- NOTE | 2017-02-07 15:04 | Medical Student: [facility] ---
Med Student Progress Note Date of Service Feb 07, 2017. Subjective Pt evaluation today including: conversation w/ patient, conversation w/ family Voiding: no voiding problems Jairo is a 56-year-old male with a past history of cholelithiasis who presented to the ED with shaking chills, bloating, vomiting, and epigastric pain. He was admitted on 02/06 for concerns of cholecystitis or cholangitis and was made NPO and started on IV fluids and Zosyn. Jairo was seen at the bedside this morning with his . He slept okay last night. Jairo reports achy LLQ pain and a persistent frontal headache that he rates as a 5-6/10. He states his bloating is about the same as it was yesterday but improved from arrival to the ED. He complains of congestion and SOB. Review of Systems Constitutional: + fatigue, No fever, No chills, No sweats Respiratory: + shortness of breath Cardiac: No chest pain Abdomen: + pain, + nausea, No vomiting, No diarrhea, No constipation Objective Vital Signs Date Time Temp Pulse Resp B/P (MAP) Pulse Ox O2 Delivery O2 Flow Rate FiO2 02/07/17 11:09 77 138/72 (94) 02/07/17 09:59 69 151/77 (101) 02/07/17 07:48 169/83 (111) 02/07/17 07:40 Room Air 02/07/17 07:12 37.0 78 18 160/80 (106) 92 Room Air 02/06/17 23:05 37.0 79 16 157/82 (107) 90 Room Air 02/06/17 21:11 95 160/82 (108) 02/06/17 20:05 Room Air 02/06/17 15:13 37.5 95 18 166/85 (112) 94 Room Air Physical Exam General Appearance: WD/WN, no apparent distress Eyes: bilateral eyes PERRL, bilateral eyes EOMI, bilateral eyes pertinent finding (scleral icterus) Respiratory/Chest: chest non-tender, normal breath sounds, no respiratory distress, no accessory muscle use, + wheezing (bilateral diffuse wheezing) Cardiovascular: regular rate, rhythm, no edema, no gallop, no murmur Abdomen: non tender, soft, + abnormal bowel sounds (hypoactive bowel sounds) Neurologic/Psychiatric: alert, oriented x 3 Skin: warm/dry, + jaundice (notable in face) Laboratory Results Last 24 Hours Test 02/06/17 13:50 02/06/17 18:00 02/07/17 05:53 02/07/17 08:03 Lactic Acid Level 1.5 mmol/L White Blood Count 9.82 K/uL Red Blood Count 4.40 M/uL Hemoglobin 13.5 g/dL Hematocrit 40.6 % Mean Corpuscular Volume 92.3 fL Mean Corpuscular Hemoglobin 30.7 pg Mean Corpuscular Hemoglobin Concent 33.3 g/dl RDW Standard Deviation 47.8 fL RDW Coefficient of Variation 14.0 % Platelet Count 153 K/uL Mean Platelet Volume 10.0 fL Sodium Level 139 mmol/L Potassium Level 4.0 mmol/L Chloride Level 104 mmol/L Carbon Dioxide Level 27 mmol/L Anion Gap 8.0 mmol/L Blood Urea Nitrogen 24 mg/dl Creatinine 1.64 mg/dl Est Creatinine Clear Calc Drug Dose 52.5 ml/min Estimated GFR () 53.0 Estimated GFR (Non- 45.7 BUN/Creatinine Ratio 14.6 Random Glucose 145 mg/dl Calcium Level 8.3 mg/dl Total Bilirubin 7.0 mg/dl Direct Bilirubin 5.6 mg/dl Aspartate Amino Transf (AST/SGOT) 229 U/L Alanine Aminotransferase (ALT/SGPT) 617 U/L Alkaline Phosphatase 177 U/L Total Protein 6.1 gm/dl Albumin 3.0 gm/dl Globulin 3.1 gm/dl Albumin/Globulin Ratio 1.0 Lipase 107 U/L Immunoglobulin G 639.0 mg/dL Assessment and Plan Assessment and Plan: Jairo is a 56-year-old male with a history of cholelithiasis who presented on to the ED after an episode of shaking chills, bloating/abdominal distension, and epigastric pain. He was admitted with concerns of hepatitis secondary to cholecystitis or cholangitis. Hepatitis - improving -AST and ALTs have trended downward since yesterday (1283 and 1287 --> 229 and 667) Acute cholecystitis -total bilirubin 7.0, direct bilirubin 5.0 - secondary to obstruction of cystic and common bile duct -HIDA scan showed no GB uptake or activity, therefore proceed with ERCP and laparoscopic cholecystectomy on 02/08 -advance diet today to clear liquids -keep patient NPO after midnight -continue IV piperacillin/tazobactam Migraine headaches -start on NSAIDs and promethazine -if migraines persist, start sumatriptan (not first choice agent due to suboptimally controlled HTN) Sinus congestion -continue on Singulair and Flonase
[2017-02-07] MEDS ORDERED: SUMATRIPTAN SUCCINATE 6 MG/0.5 ML VIAL SQ ONE (18:30)
--- NOTE | 2017-02-07 18:58 | Progress Note ---
Subjective Date of Service: Feb 07, 2017. Subjective Pt evaluation today including: conversation w/ patient, physical exam, chart review, lab review, review of studies (HIDA, MRCP, u/s, etc), conversation w/ it architecture consultant (GI, gen surg), review of inpatient medication list Pain: headache - severe, frontal; minimal abd pain during my visit PO Intake: scant clear liquid intake Voiding: no voiding problems pt's main complaint is that of frontal headache long-standing history of headaches; was told years ago he has migraines typically takes motrin or excedrin migraine w/ relief +photophobia, phonophobia +nausea with headache no emesis feels a little bloated Problem List Medical Problems: (1) Elevated transaminase level Status: Acute (2) Epigastric abdominal pain Status: Acute Review of Systems Constitutional: No fever Respiratory: No shortness of breath Cardiac: No chest pain Abdomen: + pain, + nausea, No vomiting, No diarrhea Objective Vital Signs Date Time Temp Pulse Resp B/P (MAP) Pulse Ox O2 Delivery O2 Flow Rate FiO2 02/07/17 16:00 36.9 69 18 149/79 (102) 95 Room Air 02/07/17 15:45 Room Air 02/07/17 11:09 77 138/72 (94) 02/07/17 09:59 69 151/77 (101) 02/07/17 07:48 169/83 (111) 02/07/17 07:40 Room Air 02/07/17 07:12 37.0 78 18 160/80 (106) 92 Room Air 02/06/17 23:05 37.0 79 16 157/82 (107) 90 Room Air 02/06/17 21:11 95 160/82 (108) 02/06/17 20:05 Room Air Physical Exam General Appearance: + mild distress (looks ill but nontoxic ) ENT: pharynx normal Neck: no JVD Respiratory/Chest: lungs clear, no respiratory distress, no accessory muscle use Cardiovascular: regular rate, rhythm, no gallop, no murmur Abdomen: normal bowel sounds, soft, no organomegaly, + distended (minimal ), + tenderness (RUQ/high epigastric region) Extremities: no pedal edema Neurologic/Psychiatric: alert, oriented x 3 Laboratory Results Last 24 Hours Test 02/07/17 05:53 02/07/17 08:03 White Blood Count 9.82 K/uL Red Blood Count 4.40 M/uL Hemoglobin 13.5 g/dL Hematocrit 40.6 % Mean Corpuscular Volume 92.3 fL Mean Corpuscular Hemoglobin 30.7 pg Mean Corpuscular Hemoglobin Concent 33.3 g/dl RDW Standard Deviation 47.8 fL RDW Coefficient of Variation 14.0 % Platelet Count 153 K/uL Mean Platelet Volume 10.0 fL Sodium Level 139 mmol/L Potassium Level 4.0 mmol/L Chloride Level 104 mmol/L Carbon Dioxide Level 27 mmol/L Anion Gap 8.0 mmol/L Blood Urea Nitrogen 24 mg/dl Creatinine 1.64 mg/dl Est Creatinine Clear Calc Drug Dose 52.5 ml/min Estimated GFR () 53.0 Estimated GFR (Non- 45.7 BUN/Creatinine Ratio 14.6 Random Glucose 145 mg/dl Calcium Level 8.3 mg/dl Total Bilirubin 7.0 mg/dl Direct Bilirubin 5.6 mg/dl Aspartate Amino Transf (AST/SGOT) 229 U/L Alanine Aminotransferase (ALT/SGPT) 617 U/L Alkaline Phosphatase 177 U/L Total Protein 6.1 gm/dl Albumin 3.0 gm/dl Globulin 3.1 gm/dl Albumin/Globulin Ratio 1.0 Lipase 107 U/L Immunoglobulin G 639.0 mg/dL Assessment and Plan 56yo male with: 1. acute cholecystitis with concern of cholangitis - plan is for ERCP tomorrow to exclude CBD obstruction (evidenced by rising t/d bili today) followed by tyree thakkar by Dr. Canales. NPO after MN. Clears, if desired and/or tolerated, tonight. Cont IVF and broad-spectrum IV abx. Blood cx's thus far negative. 2. abnormal LFTs - 2nd to above. 3. acute kidney injury vs CKD - last creatinine was from 2013 and thus the Cr of 1.6 could be baseline. Will recheck BMP in am to help determine if acute vs chronic. 4. hyperglycemia - unsure if he is an early T2DM or pre-diabetic. Check BSG's ac/hs and check hemoglobin a1c in the AM. 5. HTN - uncontrolled - due to concern of unreliable PO intake will add hydralazine 5mg IV q8h. 6. DVT proph - lovenox, but hold after today's dose due to impending procedures. 7. headache - likely migraine - toradol with phenergan now. If this does not abort the headache then imitrex 6mg SC x 1. Although he has HTN I believe if his BPs are reasonably controlled we could use the triptan cautiously. Would not want to give steroids in light of #1 above. repeat all labs in AM Continued [facility] stay due to: inadequate po fluid intake, multiple IV medications needed Discharge planning: home
[2017-02-07] MEDS ORDERED: COUGH DROP (SUGAR FREE) LOZ 24 LOZ/1 BOX ONE (23:23)
[2017-02-08] VITALS (11 sets, daily range): BP systolic 167–207; BP diastolic 82–98; PULSE 63–74; TEMP 36.4–37.2; O2SAT 92–96
[2017-02-08] MEDS: FAMOTIDINE IV INJ 20 MG in SYRINGE 3 ML IV SCH ×2 (01:46→14:00)
[2017-02-08] MEDS: HydrALAZINE HCL 20 MG/ML VIAL IV. SCH ×3 (01:46→16:44)
[2017-02-08 05:01] LABS: HEMATOCRIT 41.1 % (42-52); MEAN CELL VOLUME 92.4 fL (80-100); MEAN CORPUSCULAR HEMOGLOBIN 30.6 pg (25-34); MEAN CORPUSCULAR HGB CONC 33.1 g/dl (32-36); PLATELET COUNT 148 K/uL (130-400); RED BLOOD COUNT 4.45 M/uL (4.7-6.1); WHITE BLOOD COUNT 6.62 K/uL (4.8-10.8)
[2017-02-08 05:12] LABS: INR 1.1 (0.9-1.1); PROTHROMBIN TIME (PATIENT) 11.6 SECONDS (9.0-12.0)
[2017-02-08] MEDS: PIPERACILL/TAZOBAC IV 3.375 GM in DEXTROSE 5% 100ML IV SCH ×3 (05:21→21:11)
[2017-02-08] MEDS: SODIUM CHLORIDE 0.9% 1000ML 1,000 ML IV SCH ×3 (05:21→18:07)
[2017-02-08 05:48] LABS: ALB/GLOB RATIO 0.8 (0.9-2); BUN/CREATININE RATIO 10.4 (10-20); CALCIUM 7.5 mg/dl (8.5-10.1); CREATININE 1.3 mg/dl (0.60-1.40); MAGNESIUM 1.9 mg/dl (1.8-2.4); POTASSIUM 3.7 mmol/L (3.5-5.1)
[2017-02-08 05:56] LABS: ESTIMATED AVERAGE GLUCOSE 108 mg/dl; HA1C FLAG Normal (Normal)
[2017-02-08] MEDS ORDERED: HYDROmorphone INJ 0.5 MG/0.5 ML SYR IV STA (08:38)
[2017-02-08] MEDS ORDERED: SODIUM CHLORIDE 0.65% NA SOLN 45 ML (OCEAN) ONE (08:39)
[2017-02-08] MEDS: LISINOPRIL 20 MG TAB PO SCH (08:42)
[2017-02-08] MEDS: METOPROLOL TARTRATE 50 MG TAB PO SCH ×2 (08:42→20:17)
[2017-02-08] MEDS ORDERED: SUMATRIPTAN SUCCINATE 6 MG/0.5 ML VIAL SQ ONE (08:45)
--- NOTE | 2017-02-08 08:58 | Medical Student: [facility] ---
Med Student Progress Note Date of Service Feb 08, 2017. Subjective Pt evaluation today including: conversation w/ patient, physical exam, chart review, lab review PO Intake: NPO Voiding: no voiding problems Jairo is a 56-year-old male with a hx of cholelithiasis admitted to the hospital for concerns of cholecystitis and cholangitis. Was started on Zosyn 3.375 mg. HIDA scan on 02/07 showed no GB activity and therefore he is proceeding with an ERCP and cholecystectomy 02/08. Jairo was seen at the bedside on 02/08. He c/o a "sinus JOSHI" and does not believe his headaches are migrainous. He says that the air is dry in his room, which irritates his sinuses and characterized the pain as dull and rates it as a 4/ 10. He is congested and has been "blowing blood" out from his nose and is coughing up mucus. He has been using the incentive spirometer and says it is helpful for expelling sputum. When asked if he had had his singulair/flonase, patient says he told the nurse he didn't need it. Says what helps him the most at home with his sinus congestion and headaches is Coricidin HBP. Pt had his first BM during his hospital stay last night and describes it as small walnut-sized pieces. Reports feeling dehydrated and says his IV fluids are not enough. Review of Systems Constitutional: No fever, No chills, No sweats Objective Vital Signs Date Time Temp Pulse Resp B/P (MAP) Pulse Ox O2 Delivery O2 Flow Rate FiO2 02/08/17 07:41 36.9 68 16 176/86 (116) 95 Room Air 02/08/17 01:47 168/83 (111) 02/07/17 23:10 37.6 69 16 161/77 (105) 98 Room Air 02/07/17 21:19 69 172/79 (110) 02/07/17 19:25 Room Air 02/07/17 16:00 36.9 69 18 149/79 (102) 95 Room Air 02/07/17 15:45 Room Air 02/07/17 11:09 77 138/72 (94) 02/07/17 09:59 69 151/77 (101) Physical Exam ENT: pharynx normal, + nasal congestion Respiratory/Chest: chest non-tender, lungs clear, normal breath sounds, no respiratory distress, no accessory muscle use Cardiovascular: regular rate, rhythm, no edema, no gallop, no murmur Abdomen: non tender, soft, no organomegaly, + abnormal bowel sounds (hypoactive ), + distended Extremities: non-tender, normal inspection, no pedal edema Neurologic/Psychiatric: alert, normal mood/affect, oriented x 3 Skin: warm/dry, no rash, + jaundice Laboratory Results Last 24 Hours Test 02/07/17 20:33 02/08/17 04:28 02/08/17 07:59 Bedside Glucose 121 mg/dl 127 mg/dl White Blood Count 6.62 K/uL Red Blood Count 4.45 M/uL Hemoglobin 13.6 g/dL Hematocrit 41.1 % Mean Corpuscular Volume 92.4 fL Mean Corpuscular Hemoglobin 30.6 pg Mean Corpuscular Hemoglobin Concent 33.1 g/dl RDW Standard Deviation 47.1 fL RDW Coefficient of Variation 13.9 % Platelet Count 148 K/uL Mean Platelet Volume 10.0 fL Prothrombin Time 11.6 SECONDS Prothromb Time International Ratio 1.1 Sodium Level 138 mmol/L Potassium Level 3.7 mmol/L Chloride Level 108 mmol/L Carbon Dioxide Level 26 mmol/L Anion Gap 4.0 mmol/L Blood Urea Nitrogen 13 mg/dl Creatinine 1.30 mg/dl Est Creatinine Clear Calc Drug Dose 66.2 ml/min Estimated GFR () 70.2 Estimated GFR (Non- 60.6 BUN/Creatinine Ratio 10.4 Random Glucose 138 mg/dl Estimated Average Glucose 108 mg/dl Hemoglobin A1c 5.4 % Calcium Level 7.5 mg/dl Magnesium Level 1.9 mg/dl Total Bilirubin 3.5 mg/dl Direct Bilirubin 2.7 mg/dl Aspartate Amino Transf (AST/SGOT) 93 U/L Alanine Aminotransferase (ALT/SGPT) 366 U/L Alkaline Phosphatase 173 U/L Total Protein 5.7 gm/dl Albumin 2.6 gm/dl Globulin 3.1 gm/dl Albumin/Globulin Ratio 0.8 Assessment and Plan Assessment and Plan: Jairo is a 56-year-old man w/hx of cholelithiasis admitted for concerns of cholecystitis and cholangitis. Acute cholecystitis -with a positive Continued [facility] stay due to: inadequate po fluid intake, multiple IV medications needed Discharge planning: home
--- NOTE | 2017-02-08 12:33 | History & Physical Bridge Note ---
H&P Re-Evaluation Bridge Note: I have examined the patient, reviewed the History & Physical and in the interval since the performance of the History & Physical I have noted the following changes of clinical significance: No changes noted
[2017-02-08] MEDS ORDERED: ONDANSETRON INJ 2 MG/ML 2 ML VIAL ONE ×2 (13:01→13:51)
[2017-02-08] MEDS ORDERED: NEOSTIGMINE METHYLSULFATE 5 MG/5 ML SYR ONE (13:01)
[2017-02-08] MEDS ORDERED: PROPOFOL IV EMULSION 10 MG/ML 20 ML VIAL IV ONE (13:01)
[2017-02-08] MEDS ORDERED: LIDOCAINE HCL 2% 2 ML VIAL (20MG/ML) ONE (13:01)
[2017-02-08] MEDS ORDERED: MIDAZOLAM HCL 1 MG/ML 2ML VIAL ONE (13:01)
[2017-02-08] MEDS ORDERED: FENTANYL CITRATE INJ 50 MCG/1 ML 2 ML VIAL ONE ×2 (13:01→15:22)
[2017-02-08] MEDS ORDERED: DEXAMETHASONE SOD INJ 4 MG/ML VIAL ONE (13:01)
[2017-02-08] MEDS ORDERED: GLYCOPYRROLATE INJ 0.2 MG/ML VIAL ONE ×2 (13:01→13:51)
[2017-02-08] MEDS ORDERED: BUPIVACAINE 0.5 % 5 MG/1 ML MPF 30ML VIAL ONE (13:13)
--- NOTE | 2017-02-08 13:21 | Endo History and Physical ---
History & Physical Date of Service: Feb 08, 2017. Chief Complaint: Abdominal pain Referring Physician: Dr. Dimas History of Present Illness Patient admitted with a 1 week history of abdominal pain and nausea found to have lewkocytosis, elevated liver tests / jaundice and an abnormal GB. EUS / ERCP requested for further evaluation of the CBd. Past Surgical History Hx Cardiac Surgery: No Hx Abdominal Surgery: No (hernia repair (childhood) ) Hx Cancer Surgery: No Hx Thoracic Surgery: No Hx Orthopedic: No Hx Urinary Tract Surgery: Yes (urinary stent ) Social History Smoking Status: Never Smoker Hx Substance Use: No Hx Alcohol Use: No Allergies Coded Allergies: Codeine (Verified Allergy, Unknown, itching, 02/06/17) Morphine (Verified Adverse Reaction, Unknown, vomiting., 02/06/17) Current Medications Reported Home Medications Medications Dose Route/Sig Max Daily Dose Days Date Category Flonase Allergy Relief (Fluticasone Propionate (Nasal)) 50 Mcg/Act Spr 1 [place] STEPHANIE BID 02/06/17 Reported Robaxin (Methocarbamol) 500 Mg Tab 500 Mg PO TID PRN 02/06/17 Reported Zolpidem Tartrate 10 Mg Tab 1 Tab PO HS PRN 02/06/17 Reported Singulair (Montelukast Sodium) 10 Mg Tab 10 Mg PO DAILY 02/06/17 Reported Zetia (Ezetimibe) 10 Mg Tab 10 Mg PO DAILY 02/06/17 Reported Aspirin Ec (Aspirin) 81 Mg Tab 81 Mg PO DAILY 02/06/17 Reported Prinivil (Lisinopril) 20 Mg Tab 20 Mg PO DAILY 02/06/17 Reported Lopressor (Metoprolol Tartrate) 50 Mg Tab 50 Mg PO BID 02/06/17 Reported Vital Signs Weight (Kilograms): 84.000 Height (Feet): 5 Height (Inches): 8.00 Date Time Temp Pulse Resp B/P (MAP) Pulse Ox O2 Delivery O2 Flow Rate FiO2 02/08/17 10:37 173/82 (112) 02/08/17 10:36 170/94 (119) 02/08/17 07:41 36.9 68 16 176/86 (116) 95 Room Air 02/08/17 01:47 168/83 (111) 02/07/17 23:10 37.6 69 16 161/77 (105) 98 Room Air 02/07/17 21:19 69 172/79 (110) 02/07/17 19:25 Room Air 02/07/17 16:00 36.9 69 18 149/79 (102) 95 Room Air 02/07/17 15:45 Room Air Physical Exam General Appearance: + moderate distress Respiratory/Chest: Auscultation: breath sounds normal Abdomen: Inspection & Palpation: RUQ tenderness Assessment and Plan Patient with signs and history suggestive of CBD stones and possible cholangitis (WBC 16 K on admission). We are planning for EUS / ERCP today. We have discussed the risks to include bleeding, infection, perfotaion, pain, and failed cannulation.
[2017-02-08] MEDS ORDERED: INDOMETHACIN 50 MG SUPP PR ONE ×2 (13:30→14:00)
[2017-02-08] MEDS ORDERED: ATROPINE SULFATE 0.1 MG/ML 5ML SYR IV PRN (13:30)
[2017-02-08] MEDS ORDERED: FENTANYL CITRATE INJ 50 MCG/1 ML 2 ML VIAL IV PRN (13:30)
[2017-02-08] MEDS ORDERED: MEPERIDINE HCL 25 MG/ML CARP IV PRN (13:30)
[2017-02-08] MEDS ORDERED: PHENYLEPHRINE 100MCG/ML 5ML SYR IV PRN (13:30)
[2017-02-08] MEDS ORDERED: EpHEDrine SULFATE INJ 50 MG/ML AMP IV PRN (13:30)
[2017-02-08] MEDS ORDERED: ONDANSETRON INJ 2 MG/ML 2 ML VIAL IV PRN ×2 (13:30→16:00)
[2017-02-08] MEDS ORDERED: NALOXONE HCL 0.4 MG/1 ML VIAL/CARP IV PRN (13:30)
[2017-02-08] MEDS ORDERED: FLUMAZENIL 0.1 MG/1 ML 10 ML VIAL IV PRN (13:30)
[2017-02-08 13:35] LABS: EPSTEIN BARR VIR CAPSID IGG >750.00 U/ML
[2017-02-08] MEDS ORDERED: LARYING-O-JET KIT (LTA) ONE ×2 (13:51)
--- NOTE | 2017-02-08 14:05 | GI REPORT ---
Procedure Date: 02/08/2017 1:28 PM Procedure: Upper EUS Indications: Abnormal liver function test, Suspected choledocholithiasis Medicines: General Anesthesia Complications: No immediate complications. Estimated blood loss: Minimal. Estimated Blood Loss: Estimated blood loss was minimal. Procedure: Pre-Anesthesia Assessment: - Prior to the procedure, a History and Physical was performed, and patient medications, allergies and sensitivities were reviewed. The patient's tolerance of previous anesthesia was reviewed. - The risks and benefits of the procedure and the sedation options and risks were discussed with the patient. All questions were answered and informed consent was obtained. - Patient identification and proposed procedure were verified prior to the procedure by the physician, the nurse and the barkeep. The procedure was verified in the procedure room. - Pre-procedure physical examination revealed no contraindications to sedation. - ASA Grade Assessment: III - A patient with severe systemic disease. - After reviewing the risks and benefits, the patient was deemed in satisfactory condition to undergo the procedure. - The anesthesia plan was to use general anesthesia. - Immediately prior to administration of medications, the patient was re-assessed for adequacy to receive sedatives. - The heart rate, respiratory rate, oxygen saturations, blood pressure, adequacy of pulmonary ventilation, and response to care were monitored throughout the procedure. - The physical status of the patient was re-assessed after the procedure. After obtaining informed consent, the endoscope was passed under direct vision. Throughout the procedure, the patient's blood pressure, pulse, and oxygen saturations were monitored continuously. The Endosonoscope was introduced through the mouth, and advanced to the second part of duodenum. The upper EUS was accomplished without difficulty. The patient tolerated the procedure well. Findings: Endosonographic Finding : There was no sign of significant endosonographic abnormality in the ampulla. No masses were identified. One stone was visualized endosonographically in the common bile duct. It was characterized by shadowing. The CBD was nondilated measuring 5 mm. Moderate hyperechoic material consistent with sludge was visualized endosonographically in the common bile duct. Multiple stones and a large amount of sludge was visualized endosonographically in the gallbladder. They were hyperechoic and characterized by shadowing. The gallbladder wall was 1.6 mm in thickness. There was no sign of significant endosonographic abnormality in the left lobe of the liver. Homogeneous parenchyma was identified. There was no sign of significant endosonographic abnormality in the entire pancreas. No masses, no cysts, the pancreatic duct was regular in contour. There was no sign of significant endosonographic abnormality in the left adrenal gland. No adrenal gland enlargement was identified. One benign-appearing lymph node was visualized in the gerard hepatis region. It measured 10 mm by 14 mm in maximal cross-sectional diameter. The node was oval, hypoechoic and had poorly defined margins. Impression: - There was no sign of significant pathology in the ampulla. - One stone was visualized endosonographically in the common bile duct. - Hyperechoic material consistent with sludge was visualized endosonographically in the common bile duct. - Multiple stones were visualized endosonographically in the gallbladder. - There was no evidence of significant pathology in the left lobe of the liver. - Endosonographic images of the left adrenal gland were unremarkable. - One benign lymph node was visualized in the gerard hepatis region. Likely a reactive LN from underlying cholangitis. - No specimens collected. Recommendation: - Perform an ERCP today. Johnson Perkins D.O. Johnson Perkins, 02/08/2017 2:04:59 PM This report has been signed electronically. Note Initiated On: 02/08/2017 1:28 PM I attest to the content of the Intraoperative Record and orders documented therein, exceptions below
--- NOTE | 2017-02-08 14:39 | GI REPORT ---
Procedure Date: 02/08/2017 1:29 PM Procedure: ERCP Indications: Abdominal pain of suspected biliary origin, Suspected ascending cholangitis Medicines: General Anesthesia Complications: No immediate complications. Estimated blood loss: Minimal. Estimated Blood Loss: Estimated blood loss was minimal. Procedure: Pre-Anesthesia Assessment: - Prior to the procedure, a History and Physical was performed, and patient medications, allergies and sensitivities were reviewed. The patient's tolerance of previous anesthesia was reviewed. - The risks and benefits of the procedure and the sedation options and risks were discussed with the patient. All questions were answered and informed consent was obtained. - Patient identification and proposed procedure were verified prior to the procedure by the physician, the nurse and the hims coder. The procedure was verified in the procedure room. - Pre-procedure physical examination revealed no contraindications to sedation. - ASA Grade Assessment: III - A patient with severe systemic disease. - After reviewing the risks and benefits, the patient was deemed in satisfactory condition to undergo the procedure. - The anesthesia plan was to use general anesthesia. - Immediately prior to administration of medications, the patient was re-assessed for adequacy to receive sedatives. - The heart rate, respiratory rate, oxygen saturations, blood pressure, adequacy of pulmonary ventilation, and response to care were monitored throughout the procedure. - The physical status of the patient was re-assessed after the procedure. After obtaining informed consent, the scope was passed under direct vision. Throughout the procedure, the patient's blood pressure, pulse, and oxygen saturations were monitored continuously. The scope was introduced through the mouth, and advanced to the duodenum and used to inject contrast into the bile duct and ventral pancreatic duct. The ERCP was somewhat difficult due to challenging cannulation because of papillary stenosis. Successful completion of the procedure was aided by performing the maneuvers documented (below) in this report. The patient tolerated the procedure well. Findings: The scout leaser film was normal. The total fluoroscopy exposure time was 1 minute and 21 seconds. The major papilla was small. The ventral pancreatic duct was inadvertently cannulated with the short-nosed traction sphincterotome (Omni 35)and 0.035 in Acrobat 2 guidewire without any complications. the wire was left in place to aid in biliary cannulation. The bile duct was deeply cannulated with the short-nosed traction sphincterotome (Omni 35) and 0.035 in Acrobat 2 guidewire. Contrast was injected. I personally interpreted the bile duct images. Contrast extended to the entire biliary tree. The biliary orifice was stenotic. This appeared benign. Biliary sphincterotomy was made with a monofilament short-tip traction sphincterotome using ERBE electrocautery. There was no post-sphincterotomy bleeding. To discover objects, the biliary tree was swept with an 8.5 to 15 mm balloon starting at the bifurcation. Pus was swept from the duct. Debris was swept from the duct. One 5 Fr by 7 cm prophylactic pancreatic stent with a full external pigtail and no internal flaps was placed 7 cm into the ventral pancreatic duct. Clear fluid flowed through the stent(s). The stent was in good position. One 10 Fr by 7 cm biliary stent with a single external flap and a single internal flap was placed 7 cm into the common bile duct. Bile flowed through the stent. The stent was in good position. The endoscope was withdrawn from the patient. Impression: - The major papilla appeared to be small. - Biliary papillary stenosis, benign. - A sphincterotomy was performed. - The biliary tree was swept and pus and debris were found. - One pancreatic stent was placed into the ventral pancreatic duct. - One biliary stent was placed into the common bile duct. Recommendation: - Repeat ERCP in 6 weeks to remove stent. - Use broad spectrum antibiotics for 2 weeks. - Cholecystectomy per General Surgery. - Clear liquid diet tonite. Johnson Perkins D.O. Johnson Perkins DO 02/08/2017 2:38:44 PM This report has been signed electronically. Note Initiated On: 02/08/2017 1:29 PM I attest to the content of the Intraoperative Record and orders documented therein, exceptions below
[2017-02-08] MEDS ORDERED: EpHEDrine SULFATE 50MG/5ML SYR ONE (14:53)
--- NOTE | 2017-02-08 14:55 | [facility] Post Operative Brief Note ---
Immediate Operative Summary Operative Date Feb 08, 2017. Pre-Operative Diagnosis Acute Cholecystits; Possible Bile Duct Stone Post-Operative Diagnosis Cholangitis Procedure(s) Performed Upper Endoscopic Ultrasonography,Biliary Sphinchterotomy; Biliary Stent; Pancreatic Stent Surgeon Johnson Perkins Gallery Manager Surgeon(s) NA Estimated Blood Loss None Findings Evidence of pus / debris in CBD pancreatic stent placed Biliary stent placed Specimens None with EUS / ERCP Drains Biliary stent and pancreatic stent (internal) Anesthesia General Complication(s) None Disposition Recovery Room / PACU
--- NOTE | 2017-02-08 14:58 | Progress Note ---
Progress Note Date of Service Feb 08, 2017. Progress Note Patient underwent EUS / ERCP today. Finding: Debris in CBD / Pus in CBD c/w mild cholangitis Interventions: Biliary sphincterotomy Removal of debris from the CBD Prophylactic pancreatic stent Biliary stent Plan Cholecystectomy with Dr. Canales today Repeat ERCP in 6 weeks 2 weeks of antibiotics due to underlying infection may have clears from my perspective this evening Avoid NSAIDS for 5 days
--- NOTE | 2017-02-08 14:59 | DIAGNOSTIC IMAGING REPORT ---
ERCP BILIARY DUCTAL CLINICAL HISTORY: AFTER EUS IN ORcholecystitis COMPARISON STUDY: Ultrasound 02/06/2017 FLUOROSCOPY TIME: 13 seconds. FINDINGS: Retrograde cannulation of the pancreatic as well as common bile duct. This is followed by partial opacification of the gallbladder and cystic duct as well as common bile duct. This is followed by successful placement of a common bile duct stent. IMPRESSION: Successful placement of a common bile duct stent. The above report was generated using voice recognition software. It may contain grammatical, syntax or spelling errors. Electronically signed by: Leonardo Mock M.D. 02/08/2017 2:57 PM Dictated Date/Time: 02/08/2017 2:55 PM
--- NOTE | 2017-02-08 15:48 | [facility] Operative Report ---
Operative Report Operative Date Feb 08, 2017. Pre-Operative Diagnosis Acute Cholecystits; Possible Bile Duct Stone Post-Operative Diagnosis Cholangitis, acute cholecystitis Procedure(s) Performed Upper Endoscopic Ultrasonography,Biliary Sphinchterotomy; Biliary Stent; Pancreatic Stent lap ariane Surgeon Johnson Perkins RM Hall Electrolysis Investigator Surgeon(s) Helen JOHNSTON Estimated Blood Loss 5CC, 10 cc lap ariane Findings acute cholecystitis Specimens None with EUS / ERCP Drains Biliary stent and pancreatic stent (internal), # 15 Rd NAINA to subhepatic spa Anesthesia General Complication(s) None Disposition Recovery Room / PACU I attest to the content of the Intraoperative Record and any orders documented therein. Any exceptions are noted below.
[2017-02-08] MEDS ORDERED: HYDROCODONE/ACETAMOPHEN 5/325MG TAB PO PRN ×2 (16:00)
[2017-02-08] MEDS ORDERED: PROMETHAZINE HCL INJ 12.5 MG in SODIUM CHLORIDE 0.9% 50ML 50 ML IV PRN (16:00)
[2017-02-08] MEDS ORDERED: PROMETHAZINE HCL INJ 25 MG in SODIUM CHLORIDE 0.9% 50ML 50 ML IV PRN (16:00)
[2017-02-08] MEDS ORDERED: HYDROmorphone INJ 1 MG/ML SYR IV PRN (16:00)
[2017-02-08] MEDS ORDERED: HYDROmorphone INJ 0.5 MG/0.5 ML SYR IV PRN (16:00)
--- NOTE | 2017-02-08 16:04 | OPERATIVE REPORT ---
DATE OF OPERATION: 02/08/2017 PREOPERATIVE DIAGNOSIS: Acute cholecystitis. POSTOPERATIVE DIAGNOSIS: Same with common bile duct obstruction. NAME OF OPERATION: Laparoscopic cholecystectomy. STAFF SURGEON: Dr. Canales. ARCHEOLOGIST: Eloina Wisdom PA-C. ANESTHESIA: General. OPERATION AND FINDINGS: PROCEDURE: The patient was in the operating room undergoing ERCP. He was supine. His abdomen was prepped and draped in usual fashion. After the ERCP Rea catheter was placed. His abdomen was prepped and draped in usual fashion. 0.5% plain Marcaine was used to anesthetize all incisions. Incision was made above the umbilicus, carrying dissection down to the fascia, placing a Veress needle producing pneumoperitoneum. The patient was placed in reverse Trendelenburg position, rotated to the left. The 11 mm port placed at the umbilicus and then under visualization, three 5 mm ports placed, 1 cephalad and 2 laterally. Gallbladder was grasped and retracted. The bile was attempted to be aspirated, it was sludge-like. Dissection was carried out at the gerard hepatis. There was severe inflammation in this area but the cystic duct and cystic artery were identified, clipped and transected. There was significant edema in the gallbladder in this area. The gallbladder was dissected away from the liver bed in the usual fashion, placed into an Endobag. After appropriate irrigation and hemostasis, a #15 round Jb-Dukes drain was placed through the lateral 5 mm port site into the subhepatic space, secured to the skin using 3-0 nylon suture. The Endobag was removed through the umbilical site. All ports were removed. The umbilical fascia closed using interrupted 0 Vicryl suture. Subcutaneous tissue reapproximated using 2-0 plain catgut suture then the skin reapproximated using 4-0 nylon suture. The patient was transferred to recovery room in stable condition. I attest to the content of the Intraoperative Record and any orders documented therein. Any exception s are noted below.
[2017-02-08] MEDS: LABETALOL HCL IV 5 MG/ML 20ML IV PRN ×3 (16:14→16:29)
--- NOTE | 2017-02-08 16:52 | Anesthesiology Progress Note ---
Anesthesia Post Op Note Date & Time Feb 08, 2017 at 16:51 Vital Signs Pain Intensity: 0 Vital Signs Past 12 Hours Date Time Temp Pulse Resp B/P (MAP) Pulse Ox O2 Delivery O2 Flow Rate FiO2 02/08/17 16:50 37.2 70 20 176/82 95 Nasal Cannula 2 02/08/17 16:40 59 20 179/88 95 Room Air 02/08/17 16:30 65 16 177/85 97 Room Air 02/08/17 16:20 65 16 163/88 98 Oxymask 10 02/08/17 16:10 77 16 180/88 98 Oxymask 10 02/08/17 16:04 36.8 90 16 173/87 98 Oxymask 10 02/08/17 10:37 173/82 (112) 02/08/17 10:36 170/94 (119) 02/08/17 08:33 Room Air 02/08/17 07:41 36.9 68 16 176/86 (116) 95 Room Air Notes Mental Status: alert / awake / arousable, participated in evaluation Pt Amnestic to Procedure: Yes Nausea / Vomiting: adequately controlled Pain: adequately controlled Airway Patency, RR, SpO2: stable & adequate BP & HR: stable & adequate, see Notes Hydration State: stable & adequate Anesthetic Complications: no major complications apparent The patient was hypertensive in PACU requiring both labetalol and hydralazine.
[2017-02-08] MEDS ORDERED: METOPROLOL TARTRATE 50 MG TAB PO STA (17:25)
[2017-02-08] MEDS ORDERED: PIPERACILL/TAZOBAC IV 3.375 GM in DEXTROSE 5% 100ML 100 ML IV SCH (18:00)
[2017-02-08] MEDS: KETOROLAC TROMETHAMINE 30 MG/ML VIAL IV PRN (21:09)
--- NOTE | 2017-02-08 21:20 | Progress Note ---
Subjective Date of Service: Feb 08, 2017. Subjective Pt evaluation today including: conversation w/ patient, conversation w/ family ( at bedside), physical exam, chart review, lab review, review of studies ( ERCP, lap ariane report), review of inpatient medication list Pain: headache prior to surgery; resolved after surgery PO Intake: npo Voiding: no voiding problems Saw patient twice today - this AM before surgery, and then again late in the day after he returned from the OR. Pre-op he was complaining of severe headache, throbbing/frontal, along with nausea. Gave imitrex and dilaudid with "a little improvement" in the headache. He slept poorly last night due to headache and just being uncomfortable. BPs all night and this AM high. ----- Saw the patient post-op on the gen surg floor --- he stated his headache was resolved. BP still high. No nausea. [place] "much better" than this AM. Problem List Medical Problems: (1) Elevated transaminase level Status: Acute (2) Epigastric abdominal pain Status: Acute Review of Systems Constitutional: + fever (low grade ) Respiratory: No cough, No shortness of breath Cardiac: No chest pain Abdomen: + pain, + nausea, No vomiting, No diarrhea Neurologic: + problem reported (headache) Objective Vital Signs Date Time Temp Pulse Resp B/P (MAP) Pulse Ox O2 Delivery O2 Flow Rate FiO2 02/08/17 20:18 64 182/90 (120) 02/08/17 20:10 36.5 63 18 181/85 (117) 96 Room Air 02/08/17 19:12 36.6 66 16 181/85 (117) 96 Nasal Cannula 2.0 02/08/17 18:12 36.4 70 18 207/98 (134) 94 Nasal Cannula 2.0 02/08/17 17:40 36.5 69 18 185/93 (123) 95 Nasal Cannula 2.0 02/08/17 17:10 92 Room Air 02/08/17 17:10 36.7 74 16 181/89 (119) 92 Room Air 02/08/17 16:50 37.2 70 20 176/82 95 Nasal Cannula 2 02/08/17 16:40 59 20 179/88 95 Room Air 02/08/17 16:30 65 16 177/85 97 Room Air 02/08/17 16:20 65 16 163/88 98 Oxymask 10 02/08/17 16:10 77 16 180/88 98 Oxymask 10 02/08/17 16:04 36.8 90 16 173/87 98 Oxymask 10 02/08/17 10:37 173/82 (112) 02/08/17 10:36 170/94 (119) 02/08/17 08:33 Room Air 02/08/17 07:41 36.9 68 16 176/86 (116) 95 Room Air 02/08/17 01:47 168/83 (111) 02/07/17 23:10 37.6 69 16 161/77 (105) 98 Room Air 02/07/17 21:19 69 172/79 (110) Physical Exam General Appearance: + mild distress (looks ill ) ENT: pharynx normal Neck: no JVD, + pertinent finding (webbed neck appearance) Respiratory/Chest: lungs clear, no respiratory distress, no accessory muscle use, + decreased breath sounds (bases) Cardiovascular: regular rate, rhythm, no gallop, no murmur Abdomen: normal bowel sounds, non tender, soft, no organomegaly, + distended ( minimal ) Extremities: no pedal edema Neurologic/Psychiatric: alert, oriented x 3 Skin: no rash Laboratory Results Last 24 Hours Test 02/08/17 04:28 02/08/17 07:59 02/08/17 20:11 White Blood Count 6.62 K/uL Red Blood Count 4.45 M/uL Hemoglobin 13.6 g/dL Hematocrit 41.1 % Mean Corpuscular Volume 92.4 fL Mean Corpuscular Hemoglobin 30.6 pg Mean Corpuscular Hemoglobin Concent 33.1 g/dl RDW Standard Deviation 47.1 fL RDW Coefficient of Variation 13.9 % Platelet Count 148 K/uL Mean Platelet Volume 10.0 fL Prothrombin Time 11.6 SECONDS Prothromb Time International Ratio 1.1 Sodium Level 138 mmol/L Potassium Level 3.7 mmol/L Chloride Level 108 mmol/L Carbon Dioxide Level 26 mmol/L Anion Gap 4.0 mmol/L Blood Urea Nitrogen 13 mg/dl Creatinine 1.30 mg/dl Est Creatinine Clear Calc Drug Dose 66.2 ml/min Estimated GFR () 70.2 Estimated GFR (Non- 60.6 BUN/Creatinine Ratio 10.4 Random Glucose 138 mg/dl Estimated Average Glucose 108 mg/dl Hemoglobin A1c 5.4 % Calcium Level 7.5 mg/dl Magnesium Level 1.9 mg/dl Total Bilirubin 3.5 mg/dl Direct Bilirubin 2.7 mg/dl Aspartate Amino Transf (AST/SGOT) 93 U/L Alanine Aminotransferase (ALT/SGPT) 366 U/L Alkaline Phosphatase 173 U/L Total Protein 5.7 gm/dl Albumin 2.6 gm/dl Globulin 3.1 gm/dl Albumin/Globulin Ratio 0.8 Bedside Glucose 127 mg/dl 159 mg/dl Assessment and Plan 56yo male with: 1. acute cholecystitis with cholangitis - s/p ERCP today with deployment of CBD stent and pancreatic duct stent. Purulent fluid was seen in the CBD during the ERCP. ERCP was then followed by tyree thakkar. Continue broad-spectrum IV abx. Follow blood cx's. Diet advancement per surgery. 2. GNR septicemia/bacteremia - repeat blood cultures in AM. Cont zosyn until final culture result has returned. 3. acute kidney injury - improving. Repeat BMP am. 4. hyperglycemia - reactive due to #1, #2. A1c is not even in the pre-DM range. 5. HTN - uncontrolled - due to pain/stress/anxiety?? Review of office records - typical systolic BP about 130-140 range. Increase metoprolol to TID dosing. Cont AMANDA, hydralazine. If BPs continue to run high consider secondary causes work-up. 6. DVT proph - resume lovenox in AM. 7. headache - likely due in part to migraine - improved/resolved after his surgery today. Monitor. 8. FEN - lower the fluid rate post-op to 100cc/hr. Diet management per surgery /GI. Lytes in the AM. 9. abnormal LFTs - 2nd to #1 - repeat in AM. PT, OT evals this weekend Continued [facility] stay due to: fever, abnormal vital signs, inadequate po fluid intake, inadequate oral pain control, ambulation difficulties, multiple IV medications needed Discharge planning: home
[2017-02-09] VITALS (7 sets, daily range): BP systolic 147–166; BP diastolic 71–89; PULSE 69–80; TEMP 36.7–36.8; O2SAT 93–97
[2017-02-09] MEDS: SODIUM CHLORIDE 0.9% 1000ML 1,000 ML IV SCH ×2 (01:41→12:02)
[2017-02-09] MEDS: HydrALAZINE HCL 20 MG/ML VIAL IV. SCH ×3 (01:41→18:13)
[2017-02-09] MEDS: FAMOTIDINE IV INJ 20 MG in SYRINGE 3 ML IV SCH ×2 (01:41→14:18)
[2017-02-09] MEDS: PIPERACILL/TAZOBAC IV 3.375 GM in DEXTROSE 5% 100ML IV SCH ×2 (05:20→14:19)
[2017-02-09] MEDS: KETOROLAC TROMETHAMINE 30 MG/ML VIAL IV PRN ×4 (05:20→22:03)
--- NOTE | 2017-02-09 06:37 | Surgery Progress Note ---
Surgery Progress Note Date of Service Feb 09, 2017. Subjective Post OP Day: 1 + flatus, + pain controlled, + diet (clears), No nausea, No vomiting Objective Vital Signs: Date Time Temp Pulse Resp B/P (MAP) Pulse Ox O2 Delivery O2 Flow Rate FiO2 02/09/17 03:55 36.7 72 18 156/80 (105) 94 Room Air 02/09/17 01:40 73 147/78 (101) 02/08/17 23:10 37.2 72 16 167/82 (110) 93 Room Air 02/08/17 20:18 64 182/90 (120) 02/08/17 20:15 Room Air 02/08/17 20:10 36.5 63 18 181/85 (117) 96 Room Air 02/08/17 19:12 36.6 66 16 181/85 (117) 96 Nasal Cannula 2.0 02/08/17 18:12 36.4 70 18 207/98 (134) 94 Nasal Cannula 2.0 02/08/17 17:40 36.5 69 18 185/93 (123) 95 Nasal Cannula 2.0 02/08/17 17:10 92 Room Air 02/08/17 17:10 36.7 74 16 181/89 (119) 92 Room Air 02/08/17 16:50 37.2 70 20 176/82 95 Nasal Cannula 2 02/08/17 16:40 59 20 179/88 95 Room Air 02/08/17 16:30 65 16 177/85 97 Room Air 02/08/17 16:20 65 16 163/88 98 Oxymask 10 02/08/17 16:10 77 16 180/88 98 Oxymask 10 02/08/17 16:04 36.8 90 16 173/87 98 Oxymask 10 02/08/17 10:37 173/82 (112) 02/08/17 10:36 170/94 (119) 02/08/17 08:33 Room Air 02/08/17 07:41 36.9 68 16 176/86 (116) 95 Room Air Physical Exam: NAINA drainage (serosanguinous) General Appearance: WD/WN, no apparent distress Head: normocephalic, atraumatic Neck: supple, trachea midline Respiratory/Chest: chest non-tender, lungs clear Cardiovascular: regular rate, rhythm, no edema, no murmur Abdomen: normal bowel sounds, non distended, soft, + tenderness (moderate) Incision(s): clean, dry, intact Extremities: non-tender, no pedal edema Laboratory Results: Results Past 24 Hours Test 02/08/17 07:59 02/08/17 11:56 02/08/17 17:13 02/08/17 20:11 Range/Units Bedside Glucose 127 111 146 159 70-99 mg/dl Test 02/09/17 04:44 02/09/17 05:00 Range/Units Microbiology Results 02/09/17 Blood Culture, Ordered Pending 02/09/17 Blood Culture, Ordered Pending Assessment & Plan acute purulent cholecystitis w/CBD sones -s/p lap ariane and ERCP -con't abx -cont' drain -stay on clears for now -ambulate
[2017-02-09 06:51] LABS: HEMATOCRIT 37.9 % (42-52); MEAN CELL VOLUME 90.7 fL (80-100); MEAN CORPUSCULAR HEMOGLOBIN 31.1 pg (25-34); MEAN CORPUSCULAR HGB CONC 34.3 g/dl (32-36); PLATELET COUNT 155 K/uL (130-400); RED BLOOD COUNT 4.18 M/uL (4.7-6.1)
[2017-02-09 07:25] LABS: CREATININE 1.15 mg/dl (0.60-1.40)
[2017-02-09 07:26] LABS: BUN/CREATININE RATIO 12.7 (10-20); CALCIUM 7.7 mg/dl (8.5-10.1); POTASSIUM 3.6 mmol/L (3.5-5.1)
[2017-02-09 07:46] LABS: ALB/GLOB RATIO 0.8 (0.9-2)
[2017-02-09] MEDS: LISINOPRIL 20 MG TAB PO SCH (08:10)
[2017-02-09] MEDS: METOPROLOL TARTRATE 50 MG TAB PO SCH ×2 (08:10→21:56)
--- NOTE | 2017-02-09 11:18 | Gastroenterology Progress Note ---
Progress Note Date of Service: Feb 09, 2017 Subjective Pt evaluation today including: conversation w/ patient, chart review 56 years old patient admitted with abdominal pain and abnormal LFTs, s/p EUS and ERCP, found with cholangitis, s/p CBD and PD stenting followed by Juan Baker. Feels fine today, no significant abdominal pain and tolerated liquid diet. Review of Systems Constitutional: + see HPI, No fever, No chills Respiratory: No cough, No sputum Cardiac: No chest pain, No orthopnea Abdomen: No pain, No nausea, No vomiting, No diarrhea Skin: No rash, No itch Medications Current Inpatient Medications Medications (Trade) Dose Ordered Sig/Alana Route Start Time Stop Time Status Last Admin Dose Admin Enoxaparin Sodium (Lovenox Inj) 40 mg Q24H SQ 02/06/17 11:00 03/08/17 10:59 Future Hold 02/07/17 11:14 40 MG Al Hydrox/Mg Hydrox/Simethicone (Maalox Max Susp) 15 ml Q4H PRN PO 02/06/17 08:30 03/08/17 08:29 Lisinopril (Zestril Tab) 20 mg DAILY PO 02/07/17 09:00 03/09/17 08:59 02/09/17 08:10 20 MG Metoprolol Tartrate (Lopressor Tab) 50 mg BID PO 02/06/17 21:00 03/08/17 20:59 02/09/17 08:10 50 MG Sodium Chloride 1,000 ml @ 100 mls/hr Q10H IV 02/06/17 11:15 03/08/17 11:14 02/09/17 01:41 100 MLS/HR Piperacillin Sod/ Tazobactam Sod (Consult) 1 ea UD PRN N/A 02/06/17 11:00 03/08/17 10:59 Piperacillin Sod/ Tazobactam Sod 3.375 gm/Dextrose 115 ml @ 28.75 mls/ hr Q8 IV 02/06/17 14:00 02/16/17 13:59 02/09/17 05:20 28.75 MLS/HR Famotidine 20 mg/ Syringe 5 ml @ 2.5 mls/min Q12H IV 02/06/17 14:00 03/08/17 13:59 02/09/17 01:41 2.5 MLS/MIN Ketorolac Tromethamine (Toradol Inj) 30 mg Q6H PRN IV 02/06/17 15:45 02/11/17 15:44 Future hold 02/09/17 08:45 30 MG Hydralazine HCl (HydrALAZINE INJ) 10 mg Q8H IV. 02/08/17 10:00 03/09/17 09:59 02/09/17 10:28 10 MG Hydromorphone HCl (Dilaudid Inj) 0.5 mg Q3H PRN IV 02/08/17 16:00 02/22/17 15:59 02/09/17 00:47 0.5 MG Hydromorphone HCl (Dilaudid Inj) 1 mg Q3H PRN IV 02/08/17 16:00 02/22/17 15:59 Acetaminophen/ Hydrocodone Bitart (Brashear 5/325 Tab) 1 tab Q4 PRN PO 02/08/17 16:00 02/22/17 15:59 Acetaminophen/ Hydrocodone Bitart (Brashear 5/325 Tab) 2 tab Q4 PRN PO 02/08/17 16:00 02/22/17 15:59 Promethazine HCl 25 mg/Sodium Chloride 51 ml @ 204 mls/hr Q6H PRN IV 02/08/17 16:00 03/10/17 15:59 Ondansetron HCl (Zofran Inj) 4 mg Q6H PRN IV 02/08/17 16:00 03/10/17 15:59 02/08/17 21:09 4 MG Promethazine HCl 12.5 mg/Sodium Chloride 50.5 ml @ 204 mls/hr Q6H PRN IV 02/08/17 16:00 03/10/17 15:59 02/09/17 08:44 204 MLS/HR Objective Vital Signs Date Time Temp Pulse Resp B/P (MAP) Pulse Ox O2 Delivery O2 Flow Rate FiO2 02/09/17 10:26 166/77 (106) 02/09/17 07:35 36.7 80 16 156/75 (102) 96 Room Air 02/09/17 03:55 36.7 72 18 156/80 (105) 94 Room Air 02/09/17 01:40 73 147/78 (101) 02/08/17 23:10 37.2 72 16 167/82 (110) 93 Room Air 02/08/17 20:18 64 182/90 (120) 02/08/17 20:15 Room Air 02/08/17 20:10 36.5 63 18 181/85 (117) 96 Room Air 02/08/17 19:12 36.6 66 16 181/85 (117) 96 Nasal Cannula 2.0 02/08/17 18:12 36.4 70 18 207/98 (134) 94 Nasal Cannula 2.0 02/08/17 17:40 36.5 69 18 185/93 (123) 95 Nasal Cannula 2.0 02/08/17 17:10 92 Room Air 02/08/17 17:10 36.7 74 16 181/89 (119) 92 Room Air 02/08/17 16:50 37.2 70 20 176/82 95 Nasal Cannula 2 02/08/17 16:40 59 20 179/88 95 Room Air 02/08/17 16:30 65 16 177/85 97 Room Air 02/08/17 16:20 65 16 163/88 98 Oxymask 10 02/08/17 16:10 77 16 180/88 98 Oxymask 10 02/08/17 16:04 36.8 90 16 173/87 98 Oxymask 10 Physical Exam Neck: supple Respiratory/Chest: lungs clear, normal breath sounds Cardiovascular: regular rate, rhythm Abdomen: normal bowel sounds, non tender Laboratory Results Last 24 Hours Test 02/08/17 11:56 02/08/17 17:13 02/08/17 20:11 02/09/17 04:44 Bedside Glucose 111 mg/dl 146 mg/dl 159 mg/dl Test 02/09/17 06:26 02/09/17 08:06 White Blood Count 10.70 K/uL Red Blood Count 4.18 M/uL Hemoglobin 13.0 g/dL Hematocrit 37.9 % Mean Corpuscular Volume 90.7 fL Mean Corpuscular Hemoglobin 31.1 pg Mean Corpuscular Hemoglobin Concent 34.3 g/dl RDW Standard Deviation 45.6 fL RDW Coefficient of Variation 13.7 % Platelet Count 155 K/uL Mean Platelet Volume 10.0 fL Sodium Level 135 mmol/L Potassium Level 3.6 mmol/L Chloride Level 104 mmol/L Carbon Dioxide Level 22 mmol/L Anion Gap 9.0 mmol/L Blood Urea Nitrogen 15 mg/dl Creatinine 1.15 mg/dl Est Creatinine Clear Calc Drug Dose 74.8 ml/min Estimated GFR () 81.4 Estimated GFR (Non- 70.3 BUN/Creatinine Ratio 12.7 Random Glucose 144 mg/dl Calcium Level 7.7 mg/dl Total Bilirubin 2.1 mg/dl Direct Bilirubin 1.6 mg/dl Aspartate Amino Transf (AST/SGOT) 62 U/L Alanine Aminotransferase (ALT/SGPT) 275 U/L Alkaline Phosphatase 167 U/L Total Protein 5.9 gm/dl Albumin 2.6 gm/dl Globulin 3.2 gm/dl Albumin/Globulin Ratio 0.8 Lipase 199 U/L Bedside Glucose 136 mg/dl Assessment and Plan s/p ERCP with CBD stenting for cholangitis. Recommend: Continue Abx course as planned previously. Follow up as outpatient for repeat ERCP for stent removal in 6 weeks. Please recall GI if any questions or concerns.
--- NOTE | 2017-02-09 12:42 | DIAGNOSTIC IMAGING REPORT ---
HEAD WITHOUT CONTRAST (CT) CLINICAL HISTORY: 56 years-old Male with ongoing headache, elevated BP; eval for ICH, stroke, etc. Acute headache with hypertension TECHNIQUE: Multiple axial CT images of the head were obtained without contrast. A dose lowering technique was utilized adhering to the principles of ALARA. CT DOSE: 537.48 mGy.cm COMPARISON: None. FINDINGS: No acute intracranial hemorrhage, midline shift, intracranial mass, hydrocephalus, territorial ischemia or abnormal extra-axial collection. The calvarium is intact. The paranasal sinuses, mastoid air cells, and middle ear cavities are clear. IMPRESSION: No acute intracranial abnormality identified. The above report was generated using voice recognition software. It may contain grammatical, syntax or spelling errors. Electronically signed by: Darshan Villaseñor M.D. 02/09/2017 12:40 PM Dictated Date/Time: 02/09/2017 12:39 PM
--- NOTE | 2017-02-09 13:00 | DIAGNOSTIC IMAGING REPORT ---
CHEST 2 VIEWS ROUTINE HISTORY: 56 years-old Male bibasilar rales, eval for developing pulmonary edema COMPARISON: CT abdomen and pelvis 05/08/2016 TECHNIQUE: PA and lateral views of the chest FINDINGS: Cardiac silhouette is mildly enlarged. It is mild pulmonary vascular congestion with mild perihilar predominant interstitial opacities. Hazy bibasilar densities are also noted with suspected trace pleural effusions. There is no pneumothorax. Bones of the chest appear grossly intact. IMPRESSION: 1. Cardiomegaly with mild pulmonary edema pattern and trace effusions. 2. Hazy bibasilar opacities suggest atelectasis. The above report was generated using voice recognition software. It may contain grammatical, syntax or spelling errors. Electronically signed by: Darshan Villaseñor M.D. 02/09/2017 12:59 PM Dictated Date/Time: 02/09/2017 12:57 PM
[2017-02-09] MEDS ORDERED: POTASSIUM CHLORIDE 20 MEQ TABCR PO STA (14:08)
[2017-02-09] MEDS ORDERED: BUTALBITAL/ACETAMIN/CAFFEINE TAB PO STA (14:08)
[2017-02-09] MEDS ORDERED: FUROSEMIDE INJ 20 MG in SYRINGE 0 ML IV ONE (14:40)
[2017-02-09] MEDS ORDERED: MAGNESIUM OXIDE 400 MG TAB PO ONE (14:40)
[2017-02-09] MEDS ORDERED: DIAZEPAM 5MG TAB PO PRN (20:30)
--- NOTE | 2017-02-09 20:30 | Progress Note ---
Subjective Date of Service: Feb 09, 2017. Subjective Pt evaluation today including: conversation w/ patient, physical exam, chart review, lab review, review of studies (CT head, cxr), review of inpatient medication list Pain: no abdominal pain but headaches returned PO Intake: tolerating clears Voiding: no voiding problems overnight slept better headache was resolved last pm, but then returned again overnight his main complaint is that of frontal-temporal headache AND paraspinal muscle pain in the upper back/low neck no fever/chills +flatus minimal abd pain Problem List Medical Problems: (1) Elevated transaminase level Status: Acute (2) Epigastric abdominal pain Status: Acute Review of Systems Constitutional: No fever, No chills Respiratory: + cough, No dyspnea at rest Cardiac: No orthopnea Abdomen: + nausea, No pain, No vomiting Objective Vital Signs Date Time Temp Pulse Resp B/P (MAP) Pulse Ox O2 Delivery O2 Flow Rate FiO2 02/09/17 15:39 36.7 69 18 160/89 (112) 97 Room Air 02/09/17 15:30 Room Air 02/09/17 10:26 166/77 (106) 02/09/17 07:45 Room Air 02/09/17 07:35 36.7 80 16 156/75 (102) 96 Room Air 02/09/17 03:55 36.7 72 18 156/80 (105) 94 Room Air 02/09/17 01:40 73 147/78 (101) 02/08/17 23:10 37.2 72 16 167/82 (110) 93 Room Air Physical Exam General Appearance: + mild distress ENT: pharynx normal Neck: supple, no JVD, + pertinent finding (mild paraspinal muscle spasm/ tenderness, especially base of right neck (trapezius area); webbing of neck as previous) Respiratory/Chest: no respiratory distress, no accessory muscle use, + rales ( bibasilar) Cardiovascular: regular rate, rhythm, no gallop, no murmur Abdomen: normal bowel sounds, no organomegaly, + distended, + tenderness ( minimal around incidions; NAINA drain in place, right abdomen; serosanguinous fluid in bulb) Extremities: no pedal edema Neurologic/Psychiatric: no motor/sensory deficits, alert, oriented x 3 Laboratory Results Last 24 Hours Test 02/09/17 06:26 02/09/17 08:06 02/09/17 11:47 White Blood Count 10.70 K/uL Red Blood Count 4.18 M/uL Hemoglobin 13.0 g/dL Hematocrit 37.9 % Mean Corpuscular Volume 90.7 fL Mean Corpuscular Hemoglobin 31.1 pg Mean Corpuscular Hemoglobin Concent 34.3 g/dl RDW Standard Deviation 45.6 fL RDW Coefficient of Variation 13.7 % Platelet Count 155 K/uL Mean Platelet Volume 10.0 fL Sodium Level 135 mmol/L Potassium Level 3.6 mmol/L Chloride Level 104 mmol/L Carbon Dioxide Level 22 mmol/L Anion Gap 9.0 mmol/L Blood Urea Nitrogen 15 mg/dl Creatinine 1.15 mg/dl Est Creatinine Clear Calc Drug Dose 74.8 ml/min Estimated GFR () 81.4 Estimated GFR (Non- 70.3 BUN/Creatinine Ratio 12.7 Random Glucose 144 mg/dl Calcium Level 7.7 mg/dl Total Bilirubin 2.1 mg/dl Direct Bilirubin 1.6 mg/dl Aspartate Amino Transf (AST/SGOT) 62 U/L Alanine Aminotransferase (ALT/SGPT) 275 U/L Alkaline Phosphatase 167 U/L Total Protein 5.9 gm/dl Albumin 2.6 gm/dl Globulin 3.2 gm/dl Albumin/Globulin Ratio 0.8 Lipase 199 U/L Bedside Glucose 136 mg/dl 85 mg/dl Assessment and Plan 56yo male with: 1. acute cholecystitis with cholangitis - POD #1, s/p ERCP with deployment of CBD stent and pancreatic duct stent. Purulent fluid was seen in the CBD during the ERCP. POD #1, s/p lap ariane. He has not had fever in 48 hours. Blood cx's have returned with pansensitive e. coli - reasonable, in light of improving GI status, to narrow abx to cipro/flagyl IV. 2. E. coli septicemia/bacteremia - 2nd to cholangitis. Repeat blood cultures today to ensure sterility. d/c zosyn change to IV cipro + flagyl (latter to cover for gut anaerobes in setting of #1) . 3. acute kidney injury - resolved; BMP am. 4. hyperglycemia - reactive due to #1, #2. A1c is not even in the pre-DM range. 5. HTN - uncontrolled - but slowly improving. Review of office records - typical systolic BP about 130-140 range. Cont BB, hydralazine, AMANDA. Diuresis should help. d/c of fluids should help. 6. DVT proph - resume lovenox. 7. headache - CT head obtained - negative. Having photophobia, etc all c/w migraine. Try fioricet x 1. Muscle relaxer (valium 2.5mg q8h prn) if desired. We have tried toradol, imitrex, etc without effect to date (only modest). 8. FEN - stop fluids; lytes in AM; BMP stable. Clears per surgery. 9. abnormal LFTs - 2nd to #1 - repeat today improving. LFTs again in am. 10. acute diastolic CHF - cxr with pulmonary edema. stop IVF. lasix 20mg IV x 1; K/mag supplementation. follow response. consider echo but I believe this is simply volume overload in setting of copious fluid resuscitation in setting of septicemia. PT, OT evals this weekend Continued [facility] stay due to: abnormal vital signs, inadequate po fluid intake, inadequate oral pain control, ambulation difficulties, multiple IV medications needed Discharge planning: home
[2017-02-09] MEDS: CIPROFLOXACIN / D5W 400 MG in PREMIXED IN D5W 200 ML IV SCH (21:51)
[2017-02-09] MEDS: METRONIDAZOLE / NSS 500 MG in PREMIXED NSS 100 ML IV SCH (21:51)
[2017-02-10] VITALS (8 sets, daily range): BP systolic 135–188; BP diastolic 66–90; PULSE 64–74; TEMP 36.8–37.2; O2SAT 92–97
[2017-02-10] MEDS: HydrALAZINE HCL 20 MG/ML VIAL IV. SCH (01:52)
[2017-02-10] MEDS: FAMOTIDINE IV INJ 20 MG in SYRINGE 3 ML IV SCH ×2 (01:52→13:49)
[2017-02-10] MEDS: METRONIDAZOLE / NSS 500 MG in PREMIXED NSS 100 ML IV SCH ×3 (05:46→23:13)
[2017-02-10 05:50] LABS: HEMATOCRIT 41.7 % (42-52); MEAN CELL VOLUME 92.1 fL (80-100); MEAN CORPUSCULAR HEMOGLOBIN 30.9 pg (25-34); MEAN CORPUSCULAR HGB CONC 33.6 g/dl (32-36); MEAN PLATELET VOLUME 9.4 fL (7.4-10.4); PLATELET COUNT 179 K/uL (130-400); RED BLOOD COUNT 4.53 M/uL (4.7-6.1); WHITE BLOOD COUNT 10.59 K/uL (4.8-10.8)
[2017-02-10 06:27] LABS: CALCIUM 8.3 mg/dl (8.5-10.1); CREATININE 1.33 mg/dl (0.60-1.40); MAGNESIUM 2.1 mg/dl (1.8-2.4); POTASSIUM 3.7 mmol/L (3.5-5.1)
[2017-02-10 06:30] LABS: ALB/GLOB RATIO 0.8 (0.9-2)
[2017-02-10] MEDS: CIPROFLOXACIN / D5W 400 MG in PREMIXED IN D5W 200 ML IV SCH ×2 (08:27→22:00)
[2017-02-10] MEDS: METOPROLOL TARTRATE 50 MG TAB PO SCH ×3 (08:28→22:00)
[2017-02-10] MEDS: LISINOPRIL 20 MG TAB PO SCH (08:28)
--- NOTE | 2017-02-10 08:59 | Surgery Progress Note ---
Surgery Progress Note Date of Service Feb 10, 2017. Subjective Migraine is finally resolving. Abdomen still feels slightly bloated but he is passing flatus. No nausea. Had clear liquids. Objective Vital Signs: Date Time Temp Pulse Resp B/P (MAP) Pulse Ox O2 Delivery O2 Flow Rate FiO2 02/10/17 08:11 Room Air 02/10/17 07:37 36.8 74 16 168/82 (110) 92 Room Air 02/10/17 04:04 71 152/74 (100) 02/09/17 23:40 Room Air 02/09/17 23:00 36.8 74 18 151/71 (97) 93 Room Air 02/09/17 22:42 162/80 (107) 02/09/17 15:39 36.7 69 18 160/89 (112) 97 Room Air 02/09/17 15:30 Room Air 02/09/17 10:26 166/77 (106) Physical Exam: NAINA drainage (serosanguinous) General Appearance: WD/WN, no apparent distress Respiratory/Chest: no respiratory distress Cardiovascular: regular rate, rhythm Abdomen: normal bowel sounds, non tender, soft, + distended (mild) Incision(s): clean, dry, intact Laboratory Results: Results Past 24 Hours Test 02/09/17 11:47 02/10/17 05:40 02/10/17 08:00 Range/Units Bedside Glucose 85 108 70-99 mg/dl White Blood Count 10.59 4.8-10.8 K/uL Red Blood Count 4.53 4.7-6.1 M/uL Hemoglobin 14.0 14.0-18.0 g/dL Hematocrit 41.7 42-52 % Mean Corpuscular Volume 92.1 80-100 fL Mean Corpuscular Hemoglobin 30.9 25-34 pg Mean Corpuscular Hemoglobin Concent 33.6 32-36 g/dl RDW Standard Deviation 48.6 36.4-46.3 fL RDW Coefficient of Variation 14.2 11.5-14.5 % Platelet Count 179 130-400 K/uL Mean Platelet Volume 9.4 7.4-10.4 fL Sodium Level 136 136-145 mmol/L Potassium Level 3.7 3.5-5.1 mmol/L Chloride Level 104 98-107 mmol/L Carbon Dioxide Level 29 21-32 mmol/L Anion Gap 3.0 3-11 mmol/L Blood Urea Nitrogen 16 7-18 mg/dl Creatinine 1.33 0.60-1.40 mg/dl Est Creatinine Clear Calc Drug Dose 64.7 ml/min Estimated GFR () 68.3 Estimated GFR (Non- 58.9 BUN/Creatinine Ratio 12.0 10-20 Random Glucose 120 70-99 mg/dl Calcium Level 8.3 8.5-10.1 mg/dl Magnesium Level 2.1 1.8-2.4 mg/dl Total Bilirubin 1.7 0.2-1 mg/dl Aspartate Amino Transf (AST/SGOT) 117 15-37 U/L Alanine Aminotransferase (ALT/SGPT) 302 12-78 U/L Alkaline Phosphatase 180 45-117 U/L Total Protein 6.3 6.4-8.2 gm/dl Albumin 2.7 3.4-5.0 gm/dl Globulin 3.6 2.5-4.0 gm/dl Albumin/Globulin Ratio 0.8 0.9-2 Assessment & Plan s/p lap ariane/ ERCP for acute cholecystitis/ cholangitis. Slowly improving. Will advance to full liquid diet today. Increase activity. On IV abx for E. coli bacteremia. Repeat blood cx results are pending.
[2017-02-10] MEDS ORDERED: POTASSIUM CHLORIDE 20 MEQ TABCR PO STA (11:47)
[2017-02-10] MEDS ORDERED: FUROSEMIDE 20 MG TAB PO ONE (12:00)
[2017-02-10] MEDS ORDERED: MAGNESIUM OXIDE 400 MG TAB PO ONE (12:15)
[2017-02-10] MEDS: ENOXAPARIN 40 MG/0.4 ML SYR SQ SCH (13:49)
[2017-02-10] MEDS: KETOROLAC TROMETHAMINE 30 MG/ML VIAL IV PRN (16:14)
[2017-02-10] MEDS ORDERED: VERAPAMIL HCL 120 MG TABCR PO ONE (18:00)
[2017-02-11] MEDS: FAMOTIDINE IV INJ 20 MG in SYRINGE 3 ML IV SCH (01:51)
[2017-02-11] MEDS: KETOROLAC TROMETHAMINE 30 MG/ML VIAL IV PRN ×2 (02:00→08:18)
--- NOTE | 2017-02-11 04:51 | Progress Note ---
Subjective Date of Service: late entry for visit Feb 10, 2017. Subjective Pt evaluation today including: conversation w/ patient, conversation w/ family (, 2 sons at bedside), physical exam, chart review, lab review Pain: minimal abdominal; minimal headache PO Intake: tolerating clears Voiding: no voiding problems "I feel better" Headache and posterior back/neck pains are significantly improved no nausea or emesis +flatus and stool no dyspnea with walking good diuresis overnight with IV lasix Problem List Medical Problems: (1) Elevated transaminase level Status: Acute (2) Epigastric abdominal pain Status: Acute Review of Systems Constitutional: No fever, No chills ENT: + nasal symptoms Respiratory: No cough, No sputum, No wheezing, No shortness of breath, No dyspnea on exertion Cardiac: No chest pain Abdomen: + see HPI, + pain, + diarrhea, No nausea, No vomiting Objective Vital Signs Date Time Temp Pulse Resp B/P (MAP) Pulse Ox O2 Delivery O2 Flow Rate FiO2 02/10/17 23:21 Room Air 02/10/17 23:10 37.2 64 18 135/66 (89) 96 Room Air 02/10/17 21:57 70 158/84 (108) 02/10/17 17:45 68 174/89 (117) 02/10/17 17:11 68 178/87 (117) 02/10/17 16:40 Room Air 02/10/17 16:21 68 176/90 (118) 02/10/17 15:42 36.8 68 18 188/87 (120) 97 Room Air 02/10/17 08:11 Room Air 02/10/17 07:37 36.8 74 16 168/82 (110) 92 Room Air Physical Exam General Appearance: no apparent distress, + pertinent finding (looks much better today) ENT: pharynx normal Neck: no JVD, + pertinent finding (webbing of neck) Respiratory/Chest: no respiratory distress, no accessory muscle use, + decreased breath sounds (bases) Cardiovascular: regular rate, rhythm, no gallop, no murmur Abdomen: normal bowel sounds, non tender, no organomegaly, + distended Extremities: + pedal edema (trace b/l) Neurologic/Psychiatric: alert, normal mood/affect, oriented x 3 Laboratory Results Last 24 Hours Test 02/10/17 05:40 02/10/17 08:00 02/10/17 12:05 02/11/17 04:44 White Blood Count 10.59 K/uL Red Blood Count 4.53 M/uL Hemoglobin 14.0 g/dL Hematocrit 41.7 % Mean Corpuscular Volume 92.1 fL Mean Corpuscular Hemoglobin 30.9 pg Mean Corpuscular Hemoglobin Concent 33.6 g/dl RDW Standard Deviation 48.6 fL RDW Coefficient of Variation 14.2 % Platelet Count 179 K/uL Mean Platelet Volume 9.4 fL Sodium Level 136 mmol/L Potassium Level 3.7 mmol/L Chloride Level 104 mmol/L Carbon Dioxide Level 29 mmol/L Anion Gap 3.0 mmol/L Blood Urea Nitrogen 16 mg/dl Creatinine 1.33 mg/dl Est Creatinine Clear Calc Drug Dose 64.7 ml/min Estimated GFR () 68.3 Estimated GFR (Non- 58.9 BUN/Creatinine Ratio 12.0 Random Glucose 120 mg/dl Calcium Level 8.3 mg/dl Magnesium Level 2.1 mg/dl Total Bilirubin 1.7 mg/dl Aspartate Amino Transf (AST/SGOT) 117 U/L Alanine Aminotransferase (ALT/SGPT) 302 U/L Alkaline Phosphatase 180 U/L Total Protein 6.3 gm/dl Albumin 2.7 gm/dl Globulin 3.6 gm/dl Albumin/Globulin Ratio 0.8 Bedside Glucose 108 mg/dl 85 mg/dl Assessment and Plan 56yo male with: 1. acute cholecystitis with cholangitis - POD #2, s/p ERCP with deployment of CBD stent and pancreatic duct stent. Purulent fluid was seen in the CBD during the ERCP. POD #2, s/p lap ariane. Diet advancement per surgery. Doing well from surgical/GI standpoint. 2. E. coli septicemia/bacteremia - 2nd to cholangitis. Repeat blood cultures thus far negative. E. coli is pansensitive - will be able to complete a 14-day course with oral cipro fortunately. Continue flagyl for anaerobe coverage in light of #1. 3. acute kidney injury - resolved; BMP am. 4. hyperglycemia - reactive due to #1, #2. A1c is not even in the pre-DM range. 5. HTN - uncontrolled - but slowly improving. Review of office records - typical systolic BP about 130-140 range. Cont BB, AMANDA. Diuresis should help. Add verapamil once daily - this may help headache prevention as well. 6. DVT proph - lovenox. 7. headache - CT head obtained - negative. This is a status migraine. Finally improving. 8. FEN - lytes stable, diet today to be advanced to fulls; lytes in am. 9. abnormal LFTs - 2nd to #1 - repeat today improving. LFTs again in am. 10. acute diastolic CHF - improved. lasix 20mg PO x 1 today. echo. family updated suspect home in next 1-2 days depending on surgical opinion Continued [facility] stay due to: inadequate po fluid intake, multiple IV medications needed Discharge planning: home
[2017-02-11] MEDS: METRONIDAZOLE / NSS 500 MG in PREMIXED NSS 100 ML IV SCH (06:02)
--- NOTE | 2017-02-11 06:37 | Discharge Instructions ---
Discharge Instructions Date of Service Feb 11, 2017. Admission Reason for Admission: Hepatitis Discharge Discharge Diagnosis / Problem: acute cholecystitis, cholangitis, common bile duct obstruction Discharge Goals Goal(s): Decrease discomfort, Improve function, Improve disease control Activity Recommendations Activity Limitations: as noted below Lifting Limitations: no more than 25 pounds Exercise/Sports Limitations: until after follow-up appointment May Resume Sexual Activity: when tolerated Shower/Bathe: no limitations (may shower, do not soak in bathtub) Driving or Machine Use: resume 3 days after discharge . Instructions / Follow-Up Instructions / Follow-Up SPECIAL CARE INSTRUCTIONS: * Cover incisions and change daily for comfort/drainage. * May use ibuprofen for pain as tolerated. * Expect some swelling and bruising. Call your doctor if: * Temperature above 101 degrees * Pain not relieved by pain medicine ordered * There is increased drainage or redness from any incision * You have any unanswered questions or concerns [phone]. FOLLOW UP VISIT: If not already scheduled, please call the office for a follow-up visit. for next week- suture removal OFFICE PHONE NUMBER: Dr. Canales Office Current Hospital Diet Patient's current hospital diet: Full Liquid Diet Discharge Diet Recommended Diet: Regular Diet Procedures Procedures Performed: Upper Endoscopic Ultrasonography,Endoscopic retrograde cholangiopancreatography;Biliary Sphinchterotomy; Biliary Stent; Pancreatic Stent; Laparoscopic Cholecystectomy Pending Studies Studies pending at discharge: no Laboratory Results Hemoglobin A1c Test 02/08/17 04:28 Range/Units Estimated Average Glucose 108 mg/dl Hemoglobin A1c 5.4 4.5-5.6 % Medical Emergencies . Who to Call and When: Medical Emergencies: If at any time you feel your situation is an emergency, please call 911 immediately. . Non-Emergent Contact Non-Emergency issues call your: Primary Care Provider, Material Analyst, Surgeon . "Provider Documentation" section prepared by Hipolito Canales. . VTE Core Measure Inpt VTE Proph given/why not?: Unfractionated heparin SQ, SCD's
[2017-02-11] MEDS ORDERED: HYDR-5688 PO (06:39)
--- NOTE | 2017-02-11 06:44 | Surgery Progress Note ---
Surgery Progress Note Date of Service Feb 11, 2017. Subjective doing much better- headache gone- passing flatus dr- serous Objective Vital Signs: Date Time Temp Pulse Resp B/P (MAP) Pulse Ox O2 Delivery O2 Flow Rate FiO2 02/10/17 23:21 Room Air 02/10/17 23:10 37.2 64 18 135/66 (89) 96 Room Air 02/10/17 21:57 70 158/84 (108) 02/10/17 17:45 68 174/89 (117) 02/10/17 17:11 68 178/87 (117) 02/10/17 16:40 Room Air 02/10/17 16:21 68 176/90 (118) 02/10/17 15:42 36.8 68 18 188/87 (120) 97 Room Air 02/10/17 08:11 Room Air 02/10/17 07:37 36.8 74 16 168/82 (110) 92 Room Air General Appearance: no apparent distress Respiratory/Chest: no respiratory distress Abdomen: normal bowel sounds, + distended Incision(s): intact Laboratory Results: Results Past 24 Hours Test 02/10/17 08:00 02/10/17 12:05 02/11/17 05:44 Range/Units Bedside Glucose 108 85 70-99 mg/dl Assessment & Plan 02/11/17- s/p lap ariane, ERCP/stent- will d/c drain, ok for d/c home from surgery stdpt. Script for [facility]ee in chart, cont po atbx at least 7 days- on Cipro/ Flagyl will see in surg office next week- needs GI f/u- stent 02/07/17- will check with GI team- proceed with lap ariane depending on their plan 02/07/17- will check with GI team- proceed with lap ariane depending on their plan
[2017-02-11 06:53] LABS: HEMATOCRIT 37.7 % (42-52); MEAN CELL VOLUME 91.5 fL (80-100); MEAN CORPUSCULAR HEMOGLOBIN 30.6 pg (25-34); MEAN CORPUSCULAR HGB CONC 33.4 g/dl (32-36); MEAN PLATELET VOLUME 10.1 fL (7.4-10.4); PLATELET COUNT 173 K/uL (130-400); RED BLOOD COUNT 4.12 M/uL (4.7-6.1); WHITE BLOOD COUNT 8.72 K/uL (4.8-10.8)
[2017-02-11 07:31] LABS: ALB/GLOB RATIO 0.8 (0.9-2); BUN/CREATININE RATIO 11.8 (10-20); CALCIUM 8.1 mg/dl (8.5-10.1); CREATININE 1.2 mg/dl (0.60-1.40)
[2017-02-11 07:32] VITALS: BP 182/91; PULSE 61; TEMP 37; O2SAT 95
--- NOTE | 2017-02-11 07:44 | Anesthesiology Progress Note ---
Anesthesia Post Op Note Date & Time Feb 11, 2017 at 07:42 Vital Signs Pain Intensity: 3 Vital Signs Past 12 Hours Date Time Temp Pulse Resp B/P (MAP) Pulse Ox O2 Delivery O2 Flow Rate FiO2 02/11/17 07:32 37.0 61 16 182/91 (121) 95 Room Air 02/10/17 23:21 Room Air 02/10/17 23:10 37.2 64 18 135/66 (89) 96 Room Air 02/10/17 21:57 70 158/84 (108) Notes Mental Status: alert / awake / arousable Pt Amnestic to Procedure: Yes Nausea / Vomiting: adequately controlled Pain: adequately controlled Airway Patency, RR, SpO2: stable & adequate BP & HR: see Notes Hydration State: stable & adequate pt c/o that BP has been difficult to control since procedure but denies any severe pain. pt complains of neck pain thinks that it is due to positioning. pt c/o having a fat lip after procedure.
[2017-02-11] MEDS: LISINOPRIL 20 MG TAB PO SCH (08:15)
[2017-02-11] MEDS: METOPROLOL TARTRATE 50 MG TAB PO SCH (08:15)
[2017-02-11] MEDS: CIPROFLOXACIN / D5W 400 MG in PREMIXED IN D5W 200 ML IV SCH (08:16)
[2017-02-11] MEDS ORDERED: VERAPAMIL HCL 120 MG TABCR PO SCH (09:00)
--- NOTE | 2017-02-11 09:45 | ECHOCARDIOGRAM REPORT ---
*NOTICE TO RECEIVING [employer]Y This information is strictly Confidential and protected under [place] law. [place] law prohibits you from making any further disclosure of this information unless further disclosure is expressly permitted by the written consent of the person to whom it pertains or is authorized by law. A general authorization for the release of medical or other information is not sufficient for this purpose. Hospital accepts no responsibility if the information is made available to any other person, INCLUDING THE PATIENT. Interpretation Summary * Name: VARUN MORENO V Study Date: 02/10/2017 03:11 PM BP: 168/82 mmHg * Patient Location: C.MSN\S\N383\S\2 HR: 74 * : 1960 (M/d/yyyy) Gender: Male Height: 68 in * Age: 56 yrs Ethnicity: CA Weight: 185 lb * Ordering Physician: Larry Tilley * Referring Physician: Self, Referred * Performed By: Farzaneh Middleton RDCS * * Reason For Study: CHF * BSA: 2.0 m2 * -- Conclusions -- * 1. Normal left ventricular size and systolic function. EF 60-65%. No regional wall motion abnormalities. No left ventricular hypertrophy. Tissue Doppler suggests elevated left atrial pressure. * 2. Mild left atrial dilation. * 3. No significant valvular abnormalities visualized. * 4. Possible trace to small pericardial effusion along the right ventricular free wall (only seen in 1 image). No echocardiographic evidence of tamponade physiology. * 5. No prior study available for comparison. Procedure Details * A complete two-dimensional transthoracic echocardiogram was performed (2D, M-mode, Doppler and color flow Doppler). * A contrast injection of Definity was performed to improve assessment of LV function. * Contrast was injected into an intravenous site in the right arm. * One vial of Definity ultrasound contrast was diluted in normal saline to a total volume of 10 ml. A total of '2' ml of solution was administered during imaging. * Lot # [id number] of Definity utilized for procedure. * Expiration date FEB 25. * The attending nurse who injected the contrast agent was Roxy Vazquez RN. Left Ventricle * The left ventricle is normal in size. * There is normal left ventricular wall thickness. * Ejection Fraction = 60-65%. * Left ventricular systolic function is normal. * No regional wall motion abnormalities noted. Right Ventricle * The right ventricle is normal in size and function. * The right ventricular systolic function is normal as assessed by tricuspid annular plane systolic excursion (TAPSE) (normal >1.5 cm). Atria * The left atrium is mildly dilated. * Right atrial size is normal. * There is no evidence of atrial septal defect, but resolution does not allow assessment for a patent foramen ovale. Mitral Valve * The mitral valve is grossly normal. * There is no mitral valve stenosis. * There is trace mitral regurgitation. Tricuspid Valve * The tricuspid valve is not well visualized, but is grossly normal. * There is no tricuspid stenosis. * Significant tricuspid regurgitation is absent. Aortic Valve * The aortic valve is normal in structure and function. * No hemodynamically significant valvular aortic stenosis. * No aortic regurgitation is present. Pulmonic Valve * The pulmonary valve is inadequately visualized, but the Doppler data is adequate for interpretation. * There is no pulmonic valvular stenosis. * Trace pulmonic valvular regurgitation. Great Vessels * The aortic root is normal size. * Aortic arch of normal dimension. Pericardium/Pleural * Possible trace to small pericardial effusion along the right ventricular free wall. No echocardiographic evidence of tamponade physiology. Great Vessels * Normal inferior vena cava size and collapsability with sniff indicates a normal right atrial pressure of 3 mmHg MMode 2D Measurements and Calculations IVSd 1.1 cm LVIDd 4.7 cm LVIDs 3.1 cm LVPWd 1.0 cm IVS/LVPW 1.1 FS 35.0 % EDV(Teich) 104.1 ml ESV(Teich) 37.3 ml EF(Teich) 64.2 % EDV(cubed) 106.1 ml ESV(cubed) 29.1 ml EF(cubed) 72.5 % LV mass(C)d 175.2 grams LV mass(C)dI 88.6 grams/m\S\2 SV(Teich) 66.9 ml SI(Teich) 33.8 ml/m\S\2 SV(cubed) 77.0 ml SI(cubed) 38.9 ml/m\S\2 Ao root diam 3.0 cm Ao root area 7.1 cm\S\2 ACS 1.8 cm LA dimension 3.0 cm asc Aorta Diam 2.8 cm LA/Ao 1.0 LVOT diam 2.1 cm LVOT area 3.6 cm\S\2 LVAd ap4 27.4 cm\S\2 LVLd ap4 7.4 cm EDV(MOD-sp4) 83.4 ml EDV(sp4-el) 86.5 ml LVAs ap4 16.1 cm\S\2 LVLs ap4 6.3 cm ESV(MOD-sp4) 34.1 ml ESV(sp4-el) 34.9 ml EF(MOD-sp4) 59.1 % EF(sp4-el) 59.7 % LVAd ap2 30.6 cm\S\2 LVLd ap2 7.1 cm EDV(MOD-sp2) 105.9 ml EDV(sp2-el) 112.1 ml LVAs ap2 16.2 cm\S\2 LVLs ap2 5.8 cm ESV(MOD-sp2) 36.5 ml ESV(sp2-el) 38.5 ml EF(MOD-sp2) 65.6 % EF(sp2-el) 65.7 % LVLd %diff -3.87 % EDV(MOD-bp) 94.1 ml LVLs %diff -9.64 % ESV(MOD-bp) 36.1 ml EF(MOD-bp) 61.6 % SV(MOD-sp4) 49.3 ml SI(MOD-sp4) 24.9 ml/m\S\2 SV(MOD-sp2) 69.5 ml SI(MOD-sp2) 35.1 ml/m\S\2 SV(MOD-bp) 58.0 ml SI(MOD-bp) 29.3 ml/m\S\2 SV(sp4-el) 51.7 ml SI(sp4-el) 26.1 ml/m\S\2 SV(sp2-el) 73.7 ml SI(sp2-el) 37.2 ml/m\S\2 Doppler Measurements and Calculations MV E max ramón 136.8 cm/sec MV A max ramón 47.1 cm/sec MV E/A 2.9 MV dec time 0.16 sec Ao V2 max 146.0 cm/sec Ao max PG 8.5 mmHg Ao max PG (full) 3.5 mmHg MARTIN(V,A) 2.8 cm\S\2 MARTIN(V,D) 2.8 cm\S\2 LV V1 max PG 5.0 mmHg LV V1 max 112.0 cm/sec PA V2 max 122.2 cm/sec PA max PG 6.0 mmHg PA acc slope 750.8 cm/sec\S\2 PA acc time 0.07 sec PI max ramón 179.2 cm/sec PI max PG 12.8 mmHg PI dec slope 214.2 cm/sec\S\2 PI P1/2t 245.0 msec PA pr(Accel) 47.3 mmHg
[2017-02-11 10:25] VITALS: BP 163/79
[2017-02-11] MEDS: ENOXAPARIN 40 MG/0.4 ML SYR SQ SCH (10:28)
[2017-02-11 12:45] VITALS: BP 163/79; PULSE 61; TEMP 37; O2SAT 95
[2017-02-11] MEDS ORDERED: METRONIDAZOLE 500 MG TAB PO SCH (14:00)
[2017-02-11 15:15] VITALS: BP 176/80; PULSE 68; TEMP 37.3; O2SAT 96
[2017-02-11] MEDS ORDERED: CPR500 PO (15:53)
[2017-02-11] MEDS ORDERED: MTR500 PO (15:53)
[2017-02-11] MEDS ORDERED: ONDA8TAB62 SL (15:53)
[2017-02-11] MEDS ORDERED: VERA180C2 PO (15:53)
[2017-02-11] MEDS ORDERED: POTA10CA28 PO (16:28)
[2017-02-11] MEDS ORDERED: FURO-85 PO (16:28)
[2017-02-11] MEDS ORDERED: CIPROFLOXACIN 500 MG TAB PO SCH (21:00)
--- NOTE | 2017-02-13 11:43 | Discharge Summary ---
Discharge Summary Date of Service Feb 13, 2017. Discharge Summary Admission Date: Feb 06, 2017 at 09:02 Discharge Date: Feb 11, 2017 Discharge Disposition: Home Principal Diagnosis: acute cholecystitis with cholangitis Problems/Secondary Diagnoses: 1. e. coli septicemia/bacteremia 2. acute kidney injury - resolved 3. status migraine - resolved 4. uncontrolled HTN 5. acute diastolic CHF - resolved 6. abnormal LFTs 2nd to acute cholecystitis/cholangitis 7. hyperglycemia - resolved Immunizations: Have You Had Influenza Vaccine: Unknown Procedures: 1. gall bladder ultrasound: IMPRESSION: 1. Cholelithiasis and biliary sludge without sonographic evidence of acute cholecystitis. If there is strong clinical concern for acute cholecystitis consider nuclear hepatobiliary scan for further assessment. 2. Findings suggest hepatic steatosis. 3. Nonobstructing right renal calculus. 2. MRCP: IMPRESSION: 1. Combination of gallstones and sludge within the gallbladder lumen. 2. No significant gallbladder wall thickening or pericholecystic edematous change. 3. No evidence for choledocholithiasis, nor is there evidence for distention of the common bile duct or pancreatic duct. 4. Mild fatty replacement of the liver. 5. Mild perirenal infiltrative change of the perinephric fat raising the possibility of age-related change versus secondary evidence for pyelonephritis. 3. Portal Vein Duplex exam: normal. 4. HIDA scan: IMPRESSION: There is no visualization of the gallbladder by 60 minutes and no bowel activity is identified. The findings are highly concerning for acute cholecystitis. The patient was unable to tolerate additional delayed imaging. 5. Endoscopic ultrasound: Johnson Perkins DO Impression: - There was no sign of significant pathology in the ampulla. - One stone was visualized endosonographically in the common bile duct. - Hyperechoic material consistent with sludge was visualized endosonographically in the common bile duct. - Multiple stones were visualized endosonographically in the gallbladder. - There was no evidence of significant pathology in the left lobe of the liver. - Endosonographic images of the left adrenal gland were unremarkable. - One benign lymph node was visualized in the gerard hepatis region. Likely a reactive LN from underlying cholangitis. - No specimens collected. Recommendation: - Perform an ERCP today. 6. ERCP: Johnson Perkins DO Impression: - The major papilla appeared to be small. - Biliary papillary stenosis, benign. - A sphincterotomy was performed. - The biliary tree was swept and pus and debris were found. - One pancreatic stent was placed into the ventral pancreatic duct. - One biliary stent was placed into the common bile duct. Recommendation: - Repeat ERCP in 6 weeks to remove stent. 7. laparoscopic cholecystectomy: Hipolito Canales MD 8. CT head: negative for ICH or stroke. 9. echocardiogram: -- Conclusions -- * 1. Normal left ventricular size and systolic function. EF 60-65%. No regional wall motion abnormalities. No left ventricular hypertrophy. Tissue Doppler suggests elevated left atrial pressure. * 2. Mild left atrial dilation. * 3. No significant valvular abnormalities visualized. * 4. Possible trace to small pericardial effusion along the right ventricular free wall (only seen in 1 image). No echocardiographic evidence of tamponade physiology. * 5. No prior study available for comparison. Consultations: 1. gastroenterology - Johnson Perkins DO 2. general surgery - Hipolito Canales MD 3. physical therapy Medication Reconciliation New Medications: Furosemide (Lasix) 20 Mg Tab 20 MG PO DAILY for 3 Days, #3 TAB 0 Refills Hydrocodone/Acetaminophen 5MG/325MG ([place] 5MG/325MG) Tab 1-2 TABLET PO q 6 hrs PRN for Pain, #40 TAB PRN PAIN Ondansetron Odt (Zofran Odt) 8 Mg Soltab 8 MG SL Q6H PRN for Nausea, #10 TAB 0 Refills Potassium Chloride (Micro-K Ext Rel) 10 Meq Capcr 10 MEQ PO DAILY for 3 Days, #3 CAP 0 Refills Ciprofloxacin (Ciprofloxacin HCl) 500 Mg Tab 500 MG PO BID for 12 Days, #24 TAB 0 Refills Metronidazole (Metronidazole) 500 Mg Tab 500 MG PO TID for 7 Days, #21 TAB 0 Refills Verapamil Hcl (Verapamil Hcl Er) 180 Mg Cap 180 MG PO DAILY for 30 Days, #30 CAP 2 Refills Continued Medications: Aspirin (Aspirin Ec) 81 Mg Tab 81 MG PO DAILY Ezetimibe (Zetia) 10 Mg Tab 10 MG PO DAILY, TAB Fluticasone Propionate (Nasal) (Flonase Allergy Relief) 50 Mcg/Act Spr 1 SPRAY STEPHANIE BID Lisinopril (Prinivil) 20 Mg Tab 20 MG PO DAILY, TAB Methocarbamol (Robaxin) 500 Mg Tab 500 MG PO TID PRN for Muscle Spasms, TAB Metoprolol Tartrate (Lopressor) (Lopressor) 50 Mg Tab 50 MG PO BID, TAB Montelukast Sodium (Singulair) 10 Mg Tab 10 MG PO DAILY, TAB Zolpidem Tartrate (Zolpidem Tartrate) 10 Mg Tab 1 TAB PO HS PRN for Sleep, TAB Referrals At Discharge Follow up Referrals: Utility Operator Referral - Please Call For Appointment with Johnson Perkins , DO Discharge Exam Physical Exam: General Appearance: no apparent distress ENT: pharynx normal Neck: no JVD, + pertinent finding (webbing of neck) Respiratory/Chest: lungs clear, no respiratory distress, no accessory muscle use Cardiovascular: regular rate, rhythm, no gallop, no murmur, normal peripheral pulses Abdomen / GI: normal bowel sounds, non tender, soft, no organomegaly, + pertinent finding (incisions intact abdominal wall) Extremities: + pedal edema (trace-1+ edema b/l) Neurologic/Psychiatric: alert, oriented x 3 Hospital Course HISTORY OF PRESENT ILLNESS: 56yo male with history of HTN who presented with waxing and waning abdominal pain for several months associated with anorexia and right shoulder pain. However, about 24 hours prior to presentation, he developed severe central abdominal pain described as dull & achy. The pain radiated to his right shoulder. The pain was 8/10 on a pain scale. He had associated anorexia with nausea. On the AM of admission he also had vomiting and chills. Ultrasound of the gall bladder at ER presentation showed gallstones and sludge. He also had markedly elevated LFTs, elevated creatinine of 1.6, and leukocytosis with WBC count of 16,000. Blood cultures were drawn and he was given broad-spectrum IV antibiotics in the ER shortly after. HOSPITAL COURSE: The patient was admitted with concern for acute cholecystitis and cholangitis. Therefore, he was started on broad-spectrum IV antibiotics, bowel rest, and copious IV hydration. General surgery and gastroenterology were both consulted. On the evening of hospital day #2 the patient's blood cultures became positive for GNR and later identified as patel-sensitive e. coli. On hospital day #3 the patient underwent endoscopic ultrasound and ERCP by Dr. Johnson Perkins. ERCP revealed findings consistent with cholangitis. A pancreatic duct stent and CBD stent were deployed. Following ERCP he underwent an uncomplicated laparoscopic cholecystectomy by Dr. Hipolito Canales. Repeat blood cultures later in his stay were negative ensuring sterility of the blood following his e. coli septicemia. Serial LFTs continued to improve with discharge total bilirubin of 1.3 (peak was 7). AST/ALT also improved. Post-operatively he was started on a clear liquid diet and this was advanced to a low-fat diet prior to discharge. He tolerated such without difficulty. He had flatus and stool passage prior to discharge as well. The patient's hospitalization was complicated by uncontrolled HTN, status migraine, acute kidney injury, acute diastolic CHF, and hyperglycemia. Multiple medications were used for abortive therapy for his migraine and prior to discharge the headache was largely resolved. Verapamil was added for improved BP control as well as prophylaxis against headache. He received several doses of lasix for his volume overload and will take 3 additional days of oral lasix following discharge. His hyperglycemia resolved following surgery. With respect to his HTN, despite multiple IV medications and adjustments to his oral regimen, he remained uncontrolled. He reported that, in general, his home BPs were much better than at the clinic. This suggests some element of white-coat HTN. He will continue metoprolol twice daily and lisinopril in addition to the newly instituted verapamil. I asked him to monitor his BP at home and report his values to his PCP. After discharge he will complete courses of oral cipro for his e. coli septicemia as well as flagyl for the cholecystitis/cholangitis. Follow-up with Dr. Canales in 1 week was advised as well as [address] Perkins for stent retrieval. Total Time Spent: Greater than 30 minutes This includes examination of the patient, discharge planning, medication reconciliation, and communication with other providers. Discharge Instructions Please refer to the electronic Patient Visit Report (Discharge Instructions) for additional information. Follow-Up "Please, follow up at Dr. Canales's office (general surgery) on SaturdayFebruary 18 at 9:00 am. *This office is located at [address] [facility] in [place]. If you need to change this appointment you can call the office at . Please, follow up with Dr. Bañuelos on SaturdayFebruary 18 at 10:20 am. *If you need to change this appointment you can call the office at [phone]. " Additional Copies To Johnson Perkins DO; Hipolito Canales M.D.; Diane Bañuelos MD
== END 2017-02-11 17:01 | disposition home or self-care (01) | DRG 853 ==
LOC: C.EDB 05:08 → C.MSN 09:02 → ENRESERV 09:04
PROVIDERS: ADMIT Internal Medicine; ATTEND Internal Medicine
PROC: 0FT44ZZ Resection of Gallbladder, Percutaneous Endoscopic Approach (ICD-10-PCS; principal; 2017-02-08 09:30)
PROC: 0F798DZ Dilation of Common Bile Duct with Intraluminal Device, Via Natural or Artificial Opening Endoscopic (ICD-10-PCS; 2017-02-08 09:30)
PROC: 0F7D8DZ Dilation of Pancreatic Duct with Intraluminal Device, Via Natural or Artificial Opening Endoscopic (ICD-10-PCS; 2017-02-08 09:30)
DX: A41.51 Sepsis due to Escherichia coli [E. coli] (principal); I50.31 Acute diastolic (congestive) heart failure; K80.42 Calculus of bile duct with acute cholecystitis without obstruction; B19.9 Unspecified viral hepatitis without hepatic coma; R17 Unspecified jaundice; N17.9 Acute kidney failure, unspecified; I13.0 Hypertensive heart and chronic kidney disease with heart failure and stage 1 through stage 4 chronic kidney disease, or unspecified chronic kidney disease; N18.3 Chronic kidney disease, stage 3 (moderate); R73.9 Hyperglycemia, unspecified; G43.909 Migraine, unspecified, not intractable, without status migrainosus; Z79.82 Long term (current) use of aspirin; Z79.899 Other long term (current) drug therapy; Z88.5 Allergy status to narcotic agent

== ENCOUNTER → 2017-05-07 | Outpatient (CLI) | payer OTHER ==
[~2017-05-07] MED LIST: ASPI81TA28 PO; CPR500 PO; EZET10TA63 PO; FLUT0.15 NAE; FURO-85 PO; HYDR-5688 PO; LISI20TA3 PO; METH500T37 PO; METO50TA16 PO; MONT1TAB3 PO; MTR500 PO; ONDA8TAB62 SL; POTA10CA28 PO; VERA180C2 PO; ZOLP10TA6 PO
--- NOTE | 2017-05-07 16:35 | DIAGNOSTIC IMAGING REPORT ---
KUB HISTORY: Z12.5 Encounter for prostate cancer [id number] COMPARISON: None. FINDINGS: The bowel gas pattern is unremarkable. There are no dilated loops of small bowel to suggest an obstruction. Cholecystectomy. A 3 mm stone within the lower pole of the right kidney. No definite left renal calculi. No ureteral calculi. The left renal shadow is partially obscured by overlying bowel gas. A 1.8 cm sclerotic focus within the right iliac wing remains stable. This was described on the prior studies and favors a bone island. No pneumoperitoneum or pneumatosis. IMPRESSION: 1. Stable right-sided nephrolithiasis. No ureteral calculi. 2. Stable 1.8 cm sclerotic lesion within the right iliac bone. Therefore, this favors a bone island. No new sclerotic lesions identified within the visualized osseous structures. Electronically signed by: Elio Edouard M.D. 05/07/2017 4:34 PM Dictated Date/Time: 05/07/2017 4:31 PM
== END | disposition home or self-care (01) ==
LOC: C.RAD 15:53
PROVIDERS: ATTEND Urology
DX: Z12.5 Encounter for screening for malignant neoplasm of prostate (principal)

== ENCOUNTER → 2017-05-14 | Outpatient (CLI) | payer OTHER ==
[~2017-05-14] MED LIST changes: +ASCO10003 PO; +ASPCH81X PO; +COEN400C5 PO; +MULT-188 PO; +MULT-506 PO; +OMEP40CA41 PO; +VERA180T PO
== END | disposition home or self-care (01) ==
LOC: C.CPL 15:39
PROVIDERS: ATTEND Urology
DX: N20.0 Calculus of kidney (principal); R00.1 Bradycardia, unspecified

== ENCOUNTER → 2017-05-24 | Outpatient (CLI) | payer OTHER ==
[~2017-05-24] MED LIST changes: -ASPI81TA28 PO; -CPR500 PO; -FURO-85 PO; -HYDR-5688 PO; -METH500T37 PO; -MONT1TAB3 PO; -MTR500 PO; -ONDA8TAB62 SL; +OXYC-57 PO; -POTA10CA28 PO; -VERA180C2 PO; -ZOLP10TA6 PO
--- NOTE | 2017-05-24 08:02 | DIAGNOSTIC IMAGING REPORT ---
KUB CLINICAL HISTORY: Nephrolithiasis. FINDINGS: 2 AP supine abdominal radiographs are compared to study dated 05/07/2017 and correlated with abdominal CT dated 05/08/2016. Cholecystectomy clips are noted in the right upper quadrant. There is a nonobstructed abdominal bowel gas pattern noting moderate colonic fecal retention. A 4 mm nonobstructing calculus is again seen projecting over the lower pole of the right kidney. No calcifications project over the left kidney or along the course of the ureters. A large bone island in the right iliac wing is unchanged. Lumbosacral spondylosis is observed. IMPRESSION: Unchanged appearance of a nonobstructing right renal calculus as compared to previous. Electronically signed by: Сергей Dong M.D. 05/24/2017 8:01 AM Dictated Date/Time: 05/24/2017 7:58 AM
--- NOTE | 2017-05-24 10:15 | [facility] Post Operative Brief Note ---
Immediate Operative Summary Operative Date May 24, 2017. Pre-Operative Diagnosis r renal stone Post-Operative Diagnosis same Procedure(s) Performed r eswl Surgeon chantal Emergency Department Technician Surgeon(s) none Estimated Blood Loss none Findings Consistent with Post-Op Diagnosis Specimens none
--- NOTE | 2017-05-24 10:19 | Discharge Instructions-SurgCtr ---
Discharge Instructions Date of Service May 24, 2017. Visit Reason for Visit: N20.0 Discharge Discharge Diagnosis / Problem: post op eswl Discharge Goals Goal(s): Increase independence, Improve disease control Activity Recommendations Activity Limitations: per Instructions/Follow-up section (no driving on narcotics) Anesthesia . Post Anesthesia Instructions: If you have had General Anesthesia or IV Sedation: * Do not drive today. * Resume driving when surgeon permits. * Do not make important decisions or sign legal documents today. * Call surgeon for: 1. Temperature elevations greater than 101 degrees F. 2. Uncontrollable pain. 3. Excessive bleeding. 4. Persistent nausea and vomiting. 5. Medication intolerance (nausea, vomiting or rash). * For nausea and vomiting use only clear liquids such as: tea, soda, bouillon until nausea subsides, then gradually increase diet as tolerated. * If you have any concerns or questions, call your surgeon's office. If physician is unavailable and it is an emergency, call 911 or go to the nearest emergency room. . Diet Recommendations Home Diet: resume previous diet Pending Studies Studies pending at discharge: no Medical Emergencies . Who to Call and When: Medical Emergencies: If at any time you feel your situation is an emergency, please call 911 immediately. . Non-Emergent Contact Non-Emergency issues call your: Urologist (no driving on narcotics) . . "Provider Documentation" section prepared by Shiva Troncoso. .
== END | disposition home or self-care (01) ==
LOC: C.RAD 06:59
PROVIDERS: ATTEND Urology
DX: N20.0 Calculus of kidney (principal)

== ENCOUNTER → 2017-05-24 | Day surgery (SDC) | payer OTHER ==
[2017-05-16 08:14] VITALS: Ht 172.7 cm; Wt 81.8 kg
[~2017-05-24] VITALS: Ht 172.7 cm; Wt 81.8 kg
[~2017-05-24] MED LIST changes: +ATROPINE SULFATE 0.1 MG/ML 5ML SYR IV PRN; +CIPROFLOXACIN 400MG / D5W IV SCH; +DEXAMETHASONE SOD INJ 4 MG/ML VIAL ONE; +EpHEDrine SULFATE 50MG/5ML SYR ONE; +EpHEDrine SULFATE INJ 50 MG/ML AMP IV PRN; +FENTANYL CITRATE INJ 50 MCG/1 ML 2 ML VIAL IV PRN; +FENTANYL CITRATE INJ 50 MCG/1 ML 2 ML VIAL ONE; +LACTATED RINGER'S 1000ML 1,000 ML IV SCH; +LIDOCAINE HCL 2% 2 ML VIAL (20MG/ML) ONE; +MIDAZOLAM HCL 1 MG/ML 2ML VIAL ONE; +ONDANSETRON INJ 2 MG/ML 2 ML VIAL IV PRN; +ONDANSETRON INJ 2 MG/ML 2 ML VIAL ONE; +PROPOFOL IV EMULSION 10 MG/ML 20 ML VIAL IV ONE
--- NOTE | 2017-05-24 10:47 | OPERATIVE REPORT ---
DATE OF OPERATION: 05/24/2017 PREOPERATIVE DIAGNOSIS: Right renal stone. POSTOPERATIVE DIAGNOSIS: Same. SURGEON: Dr. Shiva Troncoso. ANESTHESIA: General. PROCEDURE: Right ESWL. INDICATIONS: The patient is a 57-year-old male with multiple previous stones who is here for a right renal ESWL. DESCRIPTION OF THE PROCEDURE: The patient had Venodyne stockings placed and was given preoperative antibiotics, was taken to the operating room and placed in supine position. General anesthesia was given. The stone was then visualized in 2 duong using the lithotripsy machine under fluoroscopy. The patient then received 2500 shocks, the last 1000 at level 5. The stone appeared to fragment at the end of the procedure. The patient was transferred to the recovery room in stable condition. I attest to the content of the Intraoperative Record and any orders documented therein. Any exception s are noted below.
--- NOTE | 2017-05-24 11:10 | Anesthesia Progress Nt - [facility] ---
Anesthesia Post Op Note Date & Time May 24, 2017 at 11:10 Vital Signs Pain Intensity: 0 Vital Signs Past 12 Hours Date Time Temp Pulse Resp B/P (MAP) Pulse Ox O2 Delivery O2 Flow Rate FiO2 05/24/17 10:57 54 9 05/24/17 10:57 54 9 100 05/24/17 10:56 155/85 05/24/17 10:54 36.8 56 12 155/85 99 Room Air 05/24/17 10:52 56 10 100 05/24/17 10:52 57 10 05/24/17 10:51 175/80 05/24/17 10:47 58 24 100 05/24/17 10:47 58 24 05/24/17 10:46 59 13 05/24/17 10:46 59 13 05/24/17 10:46 59 13 153/80 99 05/24/17 10:46 59 13 153/80 99 05/24/17 10:41 59 9 05/24/17 10:41 59 9 05/24/17 10:41 58 9 148/77 100 05/24/17 10:41 58 9 148/77 100 05/24/17 10:36 59 14 151/82 100 05/24/17 10:36 59 14 151/82 100 05/24/17 10:36 59 14 05/24/17 10:36 59 14 05/24/17 10:31 61 7 135/76 100 05/24/17 10:31 62 7 05/24/17 10:31 62 7 05/24/17 10:31 61 7 135/76 100 05/24/17 10:27 143/76 05/24/17 10:27 143/76 05/24/17 10:26 65 05/24/17 10:26 36.6 64 12 143/76 97 Diffusion Mask 6 05/24/17 10:26 65 05/24/17 10: 65 97 05/24/17 10:26 65 97 05/24/17 07:41 36.5 56 16 138/88 (105) 97 Room Air Notes Mental Status: alert / awake / arousable, participated in evaluation Pt Amnestic to Procedure: Yes Nausea / Vomiting: adequately controlled Pain: adequately controlled Airway Patency, RR, SpO2: stable & adequate BP & HR: stable & adequate Hydration State: stable & adequate Anesthetic Complications: no major complications apparent
--- NOTE | 2017-05-24 11:12 | Discharge Instructions-SurgCtr ---
Discharge Instructions Date of Service May 24, 2017. Visit Reason for Visit: Kidney Stones Discharge Discharge Diagnosis / Problem: post op eswl Discharge Goals Goal(s): Decrease discomfort, Increase independence, Improve disease control Activity Recommendations Activity Limitations: resume your previous activity Anesthesia . Post Anesthesia Instructions: If you have had General Anesthesia or IV Sedation: * Do not drive today. * Resume driving when surgeon permits. * Do not make important decisions or sign legal documents today. * Call surgeon for: 1. Temperature elevations greater than 101 degrees F. 2. Uncontrollable pain. 3. Excessive bleeding. 4. Persistent nausea and vomiting. 5. Medication intolerance (nausea, vomiting or rash). * For nausea and vomiting use only clear liquids such as: tea, soda, bouillon until nausea subsides, then gradually increase diet as tolerated. * If you have any concerns or questions, call your surgeon's office. If physician is unavailable and it is an emergency, call 911 or go to the nearest emergency room. . Diet Recommendations Home Diet: resume previous diet Pending Studies Studies pending at discharge: no Medical Emergencies . Who to Call and When: Medical Emergencies: If at any time you feel your situation is an emergency, please call 911 immediately. . Non-Emergent Contact Non-Emergency issues call your: Urologist Call Non-Emergent contact if: temperature is above 101 . . "Provider Documentation" section prepared by Shiva Troncoso. .
[2017-05-24 11:31] VITALS: BP 172/97; PULSE 52; O2SAT 99
== END | disposition home or self-care (01) ==
LOC: X.SURG 07:27
PROVIDERS: ATTEND Urology
DX: N20.0 Calculus of kidney (principal); N40.0 Benign prostatic hyperplasia without lower urinary tract symptoms; M19.90 Unspecified osteoarthritis, unspecified site; Z88.5 Allergy status to narcotic agent; E78.00 Pure hypercholesterolemia, unspecified; I10 Essential (primary) hypertension; Z90.49 Acquired absence of other specified parts of digestive tract; K21.0 Gastro-esophageal reflux disease with esophagitis

== ENCOUNTER → 2017-06-10 | Outpatient (CLI) | payer OTHER ==
[~2017-06-10] MED LIST changes: -ATROPINE SULFATE 0.1 MG/ML 5ML SYR IV PRN; -CIPROFLOXACIN 400MG / D5W IV SCH; -DEXAMETHASONE SOD INJ 4 MG/ML VIAL ONE; -EpHEDrine SULFATE 50MG/5ML SYR ONE; -EpHEDrine SULFATE INJ 50 MG/ML AMP IV PRN; -FENTANYL CITRATE INJ 50 MCG/1 ML 2 ML VIAL IV PRN; -FENTANYL CITRATE INJ 50 MCG/1 ML 2 ML VIAL ONE; -LACTATED RINGER'S 1000ML 1,000 ML IV SCH; -LIDOCAINE HCL 2% 2 ML VIAL (20MG/ML) ONE; -MIDAZOLAM HCL 1 MG/ML 2ML VIAL ONE; -ONDANSETRON INJ 2 MG/ML 2 ML VIAL IV PRN; -ONDANSETRON INJ 2 MG/ML 2 ML VIAL ONE; -PROPOFOL IV EMULSION 10 MG/ML 20 ML VIAL IV ONE
--- NOTE | 2017-06-10 11:27 | DIAGNOSTIC IMAGING REPORT ---
KUB CLINICAL HISTORY: 57 years-old Male presenting with N20.0 Kidney [id number]. TECHNIQUE: Single supine view of the abdomen was obtained. COMPARISON: 05/24/2017. FINDINGS: Cholecystectomy clips noted. Nonobstructive bowel gas pattern. No gross pneumoperitoneum. The previously noted calculus projecting over the lower pole the right kidney is no longer visualized. No calcification along the course of the right ureter. No radiographic evidence of a calculus in the left kidney or along the left ureter. Stable right hemipelvic phleboliths or prostatic calcification. Bone island again noted in the right iliac wing. Degenerative changes of the lower lumbar spine. IMPRESSION: 1. Nonvisualization of the producing noted right renal calculus suggest interval passage. Electronically signed by: Roberto Mcgovern M.D. 06/10/2017 11:26 AM Dictated Date/Time: 06/10/2017 11:24 AM
== END | disposition home or self-care (01) ==
LOC: C.RAD 10:40
PROVIDERS: ATTEND Urology
DX: N20.0 Calculus of kidney (principal)

== ENCOUNTER 2019-12-31 10:35 | Inpatient (IN) ==
[2019-12-31] MEDS ORDERED: SODIUM CHLORIDE 0.9% 1000ML 1,000 ML IV ONE (11:33)
[2019-12-31 11:51] LABS: Basophils # (auto) 0.03 K/uL (0-0.2); Basophils % (auto) 0.3 %; Eosinophils # (auto) 0.03 K/uL (0-0.5); Eosinophils % (auto) 0.3 %; Hematocrit (blood only) 25.4 % (42-52); Hemoglobin 8.4 g/dL (14.0-18.0); Immature Granulocytes # (auto) 0.08 K/uL (0.00-0.02); Immature Granulocytes % (auto) 0.7 %; Lymphocytes # (auto) 2.34 K/uL (1.2-3.4); Lymphocytes % (auto) 20.9 %; Mean Corpuscular Hemoglobin 30.9 pg (25-34); Mean Corpuscular Hgb Conc 33.1 g/dL (32-36); Mean Corpuscular Volume 93.4 fL (80-100); Mean Platelet Volume 10.3 fL (7.4-10.4); Monocytes # (auto) 1.19 K/uL (0.11-0.59); Monocytes % (auto) 10.6 %; Neutrophils # (auto) 7.51 K/uL (1.4-6.5); Neutrophils % (auto) 67.2 %; Platelet Count 306 K/uL (130-400); RDW Coefficient of Variation 14.9 % (11.5-14.5); RDW Standard Deviation 48.3 fL (36.4-46.3); Red Blood Count 2.72 M/uL (4.7-6.1); White Blood Count 11.18 K/uL (4.8-10.8)
--- NOTE | 2019-12-31 11:59 | Electrocardiogram Report ---
Test Reason : Blood Pressure : / mmHG Vent. Rate : 070 BPM Atrial Rate : 070 BPM P-R Int : 174 ms QRS Dur : 080 ms QT Int : 400 ms P-R-T Axes : 062 009 024 degrees QTc Int : 432 ms Normal sinus rhythm Normal ECG When compared with ECG of 14-MAY-2017 16:01, No significant change was found Confirmed by Shiva Miranda ([id number]) on 12/31/2019 11:58:49 AM Referred By: REFERRED SELF Confirmed By:Shiva Miranda
[2019-12-31 12:03] LABS: Partial Thromboplastin Ratio 0.8; Partial Thromboplastin Time 23.3 Seconds (21.0-31.0); Prothrombin Time 10.9 Seconds (9.0-12.0)
[2019-12-31 12:10] LABS: Alanine Aminotransferase 24 U/L (12-78); Albumin Level 3.3 gm/dl (3.4-5.0); Aspartate Aminotransferase 11 U/L (15-37); BUN Creatinine Ratio 23.8 (10-20); Blood Urea Nitrogen 29 mg/dl (7-18); Calcium 8.6 mg/dl (8.5-10.1); Carbon Dioxide 23 mmol/L (21-32); Chloride 109 mmol/L (98-107); Creatinine Clr Calc Pharmacy 59.7 ml/min; Est GFR (African American) 73.5; Est GFR (Non-African American) 63.4; Glucose 94 mg/dl (70-99); Lipase 135 U/L (73-393); Potassium 3.9 mmol/L (3.5-5.1); Sodium 138 mmol/L (136-145)
[2019-12-31 12:20] LABS: Albumin Globulin Ratio 1.2 (0.9-2); Alkaline Phosphatase 87 U/L (45-117); Bilirubin,Total 0.3 mg/dl (0.2-1); Creatine Kinase 50 U/L (39-308); Creatine Kinase MB < 1.0 ng/ml (0.5-3.6); Globulin 2.8 gm/dl (2.5-4.0); Total Protein 6.1 gm/dl (6.4-8.2); Troponin I < 0.015 ng/ml (0-0.045)
[2019-12-31] MEDS ORDERED: PANTOprazole 80 MG in DEXTROSE 5% 100 ML IV ONE (12:37)
--- NOTE | 2019-12-31 12:44 | XRay Report ---
XR chest 1V portable HISTORY: 59 years-old Male Chest Pain acute atypical chest pain COMPARISON: Chest radiographs 02/09/2017 TECHNIQUE: Portable AP view of the chest FINDINGS: Cardiomediastinal and hilar silhouettes are within normal limits. No pneumothorax, pleural effusion, airspace consolidation or overt pulmonary edema. Bones of the chest appear grossly intact. IMPRESSION: No acute process. ACT 112: Negative or not required by law. The above report was generated using voice recognition software. It may contain grammatical, syntax o r spelling errors. Electronically signed by: Darshan Villaseñor M.D. 12/31/2019 12:43 PM
[2019-12-31] MEDS ORDERED: PANTOprazole 40 MG in DEXTROSE 5% 100 ML IV SCH (12:52)
[2019-12-31] MEDS: PANTOPRAZOLE BOLUS/DRIP 1 EA IV STA ×2 (13:33→13:37)
--- NOTE | 2019-12-31 14:03 | History & Physical Report ---
Date of Service December 31, 2019 Assessment & Plan (1) Acute blood loss anemia: Patient presents with melena, hemoglobin of 8.4 last check 2017 was 12 g. Reportedly the patient has a history of polypectomies on his last colonoscopy, 07/2018. Polyps showed to be fragments of tubular adenomas diverticulosis was also seen. Patient be brought in our facility have frequent hemoglobin checks will be started on bolus Protonix twice daily and gastroenterology consultation undertaken to consider repeat endoscopy both upper and lower Aspirin is on hold (2) CKD (chronic kidney disease), stage III: He has chronic kidney disease stage III (3) Hypertension: Patient's medicines are held however will give a small dose of metoprolol to prevent rebound tachycardia follow his blood pressure provide hydration (4) GERD (gastroesophageal reflux disease): She has a distant history of this she typically is on omeprazole will be on pantoprazole twice daily at this point time History of Present Illness Primary Care Provider: Diane Bañuelos MD 59-year-old male who said about a week's worth of dark bowel movements which initially attributed to eating spinach who presents with multiple somatic complaints having labile blood pressure over the last 1 week having to self discontinue his antihypertensives due to low blood pressure which are lisinopril and metoprolol. Patient is markedly pale and is found to be anemic in the emergency department hemoglobin of 8.2 his repeat hemoglobin was below 8 g and will be transfused 2 units. Be kept n.p.o. after midnight the patient denies any significant nonsteroidal use alcohol use caffeine use. Patient has no significant upper abdominal pain which makes me concerned this might be a lower GI bleed rather than upper. He will be kept n.p.o. and GI consult be undertaken Allergies Allergy/AdvReac Type Severity Reaction Status Date / Time codeine Allergy Mild itching Verified 12/31/19 12:20 Oulhmph-Eou-Hcv Reductase Allergy Mild Rash Verified 12/31/19 12:20 Inhibitor morphine AdvReac Mild Vomiting Verified 12/31/19 12:20 ranitidine [From Zantac] AdvReac Unknown Unknown Unverified 12/31/19 12:20 zolpidem [From Ambien] AdvReac Unknown Unknown Verified 12/31/19 12:20 Home Medications Home Medications Medication Instructions Recorded Confirmed Type Multivitamin 50 Plus 1 tab PO QAM 06/30/18 12/31/19 History Ocuvite Eye Plus Multi 1 tab PO 4XWK 06/30/18 12/31/19 History Vitamin C 1 tab PO QAM 06/30/18 12/31/19 History aspirin 81 mg PO QAM 06/30/18 12/31/19 History coenzyme Q10 [CoQ-10] 1 cap PO 3XWK 06/30/18 12/31/19 History lisinopril 20 mg tablet 20 mg PO QAM #90 tab 08/31/19 12/31/19 Rx omeprazole 20 mg capsule,delayed 40 mg PO HS #180 cap 10/01/19 12/31/19 Rx release ezetimibe 10 mg tablet 10 mg PO QAM #90 tab 11/27/19 12/31/19 Rx aspirin 325 mg PO DAILY PRN 12/31/19 12/31/19 History metoprolol tartrate 100 mg PO QAM 12/31/19 12/31/19 History Past Med/Surg History Medical History (Updated 12/31/19 @ 15:55 by Lamberto Wright MD) Allergic rhinitis Anxiety BPH (benign prostatic hyperplasia) Cholangitis Cholelithiasis Chronic diarrhea Chronic renal insufficiency Elevated creatine kinase level GERD (gastroesophageal reflux disease) Hemorrhoids Hepatitis Hypercholesterolemia Hyperglycemia Hyperlipidemia Hypertension Kidney stones Sciatic nerve pain Surgical History History of cholecystectomy 2017 History of colonoscopy History of ERCP History of esophagogastroduodenoscopy (EGD) History of hernia repair as an infant History of lithotripsy x2 History of oral surgery History of wisdom tooth extraction Family History (Updated 08/31/19 @ 08:06 by Shobha Villagran) Father Sinusitis Hypertension Myocardial infarction Other No family history of adverse response to anesthesia No family history of bleeding disorder Denies family history of Ovarian cancer Prostate cancer Social History (Updated 08/31/19 @ 08:07 by Shobha Villagran) Smoking Status: Never smoker Second Hand Exposure: No; Hx Alcohol Use: No Hx Substance Use: No Preferred Language: Tuvaluan Communication Ability: Effective Chief Clerk Shelter Required: No Beliefs That Will Affect Care: None Current Living Situation: Spouse and Family Current Living Situation Comment: Lives with and son current occupational status: employed current occupation: IT Tech Other Information That Helps Us Care for You: No Feels Safe at Home: Yes Safety Concerns: Feels Safe At This Time Childhood Exposure to Second-Hand Smoke: No Dental Care, Regularly: Yes Physical Activity Frequency: 3-4 Times per Week Seatbelt Use: always Sunscreen Use: Yes Assistive Devices: Glasses Results & Data Results & Data ([facility]) Vital Signs (Past 12 Hours) Vital Signs Temp Pulse Pulse Resp BP BP Pulse Ox 12/31/19 13:39 73 16 121/64 96 12/31/19 13:08 70 16 132/81 97 12/31/19 11:55 66 16 133/71 100 12/31/19 11:38 96 12/31/19 11:09 65 18 100 12/31/19 10:42 98.2 F 68 18 117/76 100 PG Care Time/CCT Total # of Minutes Spent Total Time Spent with Patient: Total time spent is greater than 50% in coordination of care (as documented) at patient's floor/unit and/or counseling patient: Coding Level of Care Code 83035 Initial Inpt Care Lvl 3 Diagnoses Acute blood loss anemia D62 CKD (chronic kidney disease), stage III N18.3 Hypertension I10 GERD (gastroesophageal reflux disease) K21.9
--- NOTE | 2019-12-31 15:58 | Emergency Department Note ---
History of Present Illness General Chief complaint: Arrhythmia/Palpitations Stated complaint: A FIB Time Seen by Provider: 12/31/19 11:22 Source: patient, EMS, RN notes reviewed and old records reviewed Mode of arrival: ambulatory Limitations: no limitations History of Present Illness Provider complaint: weakness, palpitations Onset (ago): week(s) 1 Maximum Pain Intensity: 3 Current Pain Intensity: 0 Relieved By: + rest Exacerbated By: + movement Associated symptoms: + fever/chills, + malaise, + nausea/vomiting and + weakness; no chest pain, no cough, no diaphoresis, no headaches and no shortness of breath Treatments prior to arrival: none This is a 59-year-old male who presents emergency department complaining of decreased blood pressure as well as weakness that has been ongoing for at least the past week. The patient has been taking his blood pressure religiously every day and has noticed it has been extremely low. Other times it has been very high. He is continue to take his lisinopril as well as his beta-sb. He has never had an issue like this before. He reports rest makes his symptoms better however if he moves his symptoms become worse. He has not taken anything for this prior to arrival. Home Medications Home Medications Medication Instructions Recorded Confirmed Type Multivitamin 50 Plus 1 tab PO QAM 06/30/18 12/31/19 History Ocuvite Eye Plus Multi 1 tab PO 4XWK 06/30/18 12/31/19 History Vitamin C 1 tab PO QAM 06/30/18 12/31/19 History aspirin 81 mg PO QAM 06/30/18 12/31/19 History coenzyme Q10 [CoQ-10] 1 cap PO 3XWK 06/30/18 12/31/19 History lisinopril 20 mg tablet 20 mg PO QAM #90 tab 08/31/19 12/31/19 Rx omeprazole 20 mg capsule,delayed 40 mg PO HS #180 cap 10/01/19 12/31/19 Rx release ezetimibe 10 mg tablet 10 mg PO QAM #90 tab 11/27/19 12/31/19 Rx aspirin 325 mg PO DAILY PRN 12/31/19 12/31/19 History metoprolol tartrate 100 mg PO QAM 12/31/19 12/31/19 History Allergies Allergy/AdvReac Type Severity Reaction Status Date / Time codeine Allergy Mild itching Verified 12/31/19 12:20 Nezuadd-Ntr-Hra Reductase Allergy Mild Rash Verified 12/31/19 12:20 Inhibitor morphine AdvReac Mild Vomiting Verified 12/31/19 12:20 ranitidine [From Zantac] AdvReac Unknown Unknown Unverified 12/31/19 12:20 zolpidem [From Ambien] AdvReac Unknown Unknown Verified 12/31/19 12:20 Past Med/Surg History Medical History (Updated 12/31/19 @ 15:55 by Lamberto Wright MD) Allergic rhinitis Anxiety BPH (benign prostatic hyperplasia) Cholangitis Cholelithiasis Chronic diarrhea Chronic renal insufficiency Elevated creatine kinase level GERD (gastroesophageal reflux disease) Hemorrhoids Hepatitis Hypercholesterolemia Hyperglycemia Hyperlipidemia Hypertension Kidney stones Sciatic nerve pain Surgical History History of cholecystectomy 2017 History of colonoscopy History of ERCP History of esophagogastroduodenoscopy (EGD) History of hernia repair as an History of lithotripsy x2 History of oral surgery History of wisdom tooth extraction Family History (Updated 08/31/19 @ 08:06 by Shobha Villagran) Father Sinusitis Hypertension Myocardial infarction Other No family history of adverse response to anesthesia No family history of bleeding disorder Denies family history of Ovarian cancer Prostate cancer Social History (Updated 08/31/19 @ 08:07 by Shobha Villagran) Smoking Status: Never smoker Second Hand Exposure: No; Hx Alcohol Use: Yes Alcohol type: wine Hx Substance Use: No Preferred Language: Vietnamese Communication Ability: Effective Guest Services Lead Required: No Beliefs That Will Affect Care: None Current Living Situation: Spouse and Family Current Living Situation Comment: Lives with and son current occupational status: employed current occupation: IT Tech Feels Safe at Home: Yes Childhood Exposure to Second-Hand Smoke: No Dental Care, Regularly: Yes Physical Activity Frequency: 3-4 Times per Week Seatbelt Use: always Sunscreen Use: Yes Assistive Devices: Glasses Review of Systems A total of 10 systems reviewed and were otherwise negative Physical Exam Vital Signs Vital Signs - 24 hr 12/31/19 10:42 12/31/19 11:09 12/31/19 11:38 Temperature 36.8 C Temperature Source Oral Pulse Rate - Lying Pulse Rate - Sitting Pulse Rate - Standing Pulse Rate 68 65 Pulse Rate [Left] Pulse Rhythm Regular Respiratory Rate 18 18 Respiratory Effort / Characteristics Non-Labored Respiratory Depth Normal Respiratory Pattern Regular Blood Pressure - Lying Blood Pressure - Sitting Blood Pressure- Standing Blood Pressure 117/76 Blood Pressure [Left Arm] Blood Pressure Mean 89 Blood Pressure Mean [Left Arm] Blood Pressure Position Sitting Blood Pressure Position [Left Arm] Pulse Oximetry 100 100 96 Oxygen Delivery Method Room Air Room Air Room Air Sepsis Recent Fever Within 48 Hours No Sepsis New/Unexplained Change in Mental Status No Sepsis Action Taken by Nursing No Action Required 12/31/19 11:55 12/31/19 12:26 12/31/19 13:08 Temperature Temperature Source Pulse Rate - Lying 60 Pulse Rate - Sitting 67 Pulse Rate - Standing 81 Pulse Rate Pulse Rate [Left] 66 70 Pulse Rhythm Respiratory Rate 16 16 Respiratory Effort / Characteristics Non-Labored Spontaneous Non-Labored Spontaneous Respiratory Depth Normal Normal Respiratory Pattern Blood Pressure - Lying 112/62 Blood Pressure - Sitting 119/68 Blood Pressure- Standing 114/69 Blood Pressure Blood Pressure [Left Arm] 133/71 132/81 Blood Pressure Mean Blood Pressure Mean [Left Arm] 91 98 Blood Pressure Position Blood Pressure Position [Left Arm] Lying Lying Pulse Oximetry 100 97 Oxygen Delivery Method Room Air Room Air Sepsis Recent Fever Within 48 Hours Sepsis New/Unexplained Change in Mental Status Sepsis Action Taken by Nursing 12/31/19 13:39 Temperature Temperature Source Pulse Rate - Lying Pulse Rate - Sitting Pulse Rate - Standing Pulse Rate Pulse Rate [Left] 73 Pulse Rhythm Respiratory Rate 16 Respiratory Effort / Characteristics Non-Labored Spontaneous Respiratory Depth Normal Respiratory Pattern Blood Pressure - Lying Blood Pressure - Sitting Blood Pressure- Standing Blood Pressure Blood Pressure [Left Arm] 121/64 Blood Pressure Mean Blood Pressure Mean [Left Arm] 83 Blood Pressure Position Blood Pressure Position [Left Arm] Lying Pulse Oximetry 96 Oxygen Delivery Method Room Air Sepsis Recent Fever Within 48 Hours Sepsis New/Unexplained Change in Mental Status Sepsis Action Taken by Nursing VITAL SIGNS - Vital signs and nursing notes were reviewed. GENERAL - 59-year-old male appearing stated age who is in no acute distress. Communicates well with provider and answers questions appropriately. SKIN - Without rashes. HEAD - NC/AT. EYES - PERRL with EOMI bilaterally. Sclera anicteric. Palpebral conjunctiva p ink and moist with no injection noted. EARS - No deformities of external structures noted on gross examination bilaterally. No pain elicited with palpation of the tragus bilaterally. External auditory canals without discharge or otorrhea. Tympanic membranes pearly cruz without retraction or bulging. No fluid or purulent material visualized behind the TM. Handle of malleus, umbo, cone of light, pars tensa/flaccid all easily visualized. NOSE - Midline and without cyanosis. No epistaxis or purulent drainage noted. Septum midline without deviation or septal hematoma noted. MOUTH/OROPHARYNX - Without perioral cyanosis. Buccal mucosa pink and moist and without leukoplakia. Tongue midline with equal elevation of palate bilaterally. No tonsillar hypertrophy, erythema, or exudates noted. dentition noted. NECK - Neck with FROM. Supple to palpation. lymphadenopathy noted. No nuchal rigidity. LUNGS - Chest wall symmetric without accessory muscle use, intercostals retractions, or central cyanosis. Normal vesicular breath sounds CTA B/L. No wheezes, rales, or rhonchi appreciated. CARDIAC - RRR with S1/S2. No murmur, rubs, or gallops appreciated. ABDOMEN - Abdominal contour without pulsations or visible masses. BS normoactive all four quadrants. No tenderness, palpable masses, hepato splenomegaly, or ascites noted. RECTAL: Black tarry stool on exam, heme positive EXTREMITIES - No clubbing or peripheral cyanosis. No pretibial edema present. +3/5 radial, posterior tibial, and dorsalis pedis pulses palpated throughout. +5/5 strength noted in UE/LE bilaterally. NEUROLOGIC - Cranial nerves II through XII grossly intact. Sensory intact to light touch throughout. Patellar reflexes +2/4. PSYCH - A&Ox3 and cooperates fully with examiner. Pt is very pleasant and interacts well with examiner. Procedures Stool Hemoccult Procedural Steps Taken: stool placed in appropriate test area (I performed the procedure), developer placed on stool and control areas and controls appropriately positive and negative Hemoccult result: positive Course Administered Medications Pantoprazole Sodium 40 mg/ (Dextrose) 100 mls @ 20 mls/hr IV Q5H NIRU Stop: 01/30/20 12:51 Last Admin: 12/31/19 13:33 Dose: 8 mg/hr, 20 mls/hr Documented by: [id number] Discontinued Medications Sodium Chloride (Nss 1000ml) 1,000 mls @ 999 mls/hr IV .Q1H1M ONE Stop: 12/31/19 12:33 Last Infusion: 12/31/19 12:58 Dose: 0 mls/hr Documented by: [id number] Admin: 12/31/19 11:51 Dose: 999 mls/hr Documented by: [id number] Pantoprazole Sodium (Protonix Bolus/Drip) 0 mls @ 1 mls/hr IV ONE STA Stop: 12/31/19 12:38 Last Admin: 12/31/19 13:37 Dose: Not Given Documented by: [id number] Pantoprazole Sodium 80 mg/ (Dextrose) 120 mls @ 400 mls/hr IV NOW ONE Stop: 12/31/19 12:54 Last Infusion: 12/31/19 13:36 Dose: 0 mls/hr Documented by: [id number] Admin: 12/31/19 13:14 Dose: 400 mls/hr Documented by: [id number] Critical Care Time I have personally spent greater than 30 minutes of critical care time in the direct management of this patient. This includes bedside care, interpretation of diagnostic studies, and testing, discussion with consultants, patient, and family members, and other required patient management activities. This 30 minutes is in excess of all separately billable procedures. Medical Decision Making Differential Diagnosis Infection, dehydration, metabolic abnormality, hypo/hyperglycemia, electrolyte disturbance, anemia, hypoxia, cardiac sources, intracerebral event, toxicologic, neurologic, as well as other pathologies. Medical Records Attestation: I reviewed the patient's medical records. Home Medications Current Medication List: was personally reviewed by me Laboratory Data Attestation: I reviewed the patient's lab results. Result diagrams: 12/31/19 11:00 12/31/19 11:00 Lab Results 12/31/19 12/31/19 12/31/19 Range/Units 11:00 11:00 11:00 WBC 11.18 H (4.8-10.8) K/uL RBC 2.72 L (4.7-6.1) M/uL Hgb 8.4 L (14.0-18.0) g/dL Hct 25.4 L (42-52) % MCV 93.4 (80-100) fL MCH 30.9 (25-34) pg MCHC 33.1 (32-36) g/dL RDW Std Deviation 48.3 H (36.4-46.3) fL RDW Coeff of Mona 14.9 H (11.5-14.5) % Plt Count 306 (130-400) K/uL MPV 10.3 (7.4-10.4) fL Immature Gran % (Auto) 0.7 % Neut % (Auto) 67.2 % Lymph % (Auto) 20.9 % [place] % (Auto) 10.6 % Eos % (Auto) 0.3 % Baso % (Auto) 0.3 % Neut # (Auto) 7.51 H (1.4-6.5) K/uL Lymph # (Auto) 2.34 (1.2-3.4) K/uL [place] # (Auto) 1.19 H (0.11-0.59) K/uL Eos # (Auto) 0.03 (0-0.5) K/uL Baso # (Auto) 0.03 (0-0.2) K/uL Immature Gran # (Auto) 0.08 H (0.00-0.02) K/uL PT 10.9 (9.0-12.0) Seconds INR 1.0 (0.9-1.1) APTT 23.3 (21.0-31.0) Seconds PTT Ratio 0.8 Sodium 138 (136-145) mmol/L Potassium 3.9 (3.5-5.1) mmol/L Chloride 109 H (98-107) mmol/L Carbon Dioxide 23 (21-32) mmol/L Anion Gap 6.0 (3-11) BUN 29 H (7-18) mg/dl Creatinine 1.23 (0.6-1.4) mg/dl Est Cr Clr Drug Dosing 59.7 ml/min Est GFR ( Amer) 73.5 Est GFR (Non-Af Amer) 63.4 BUN/Creatinine Ratio 23.8 H (10-20) Glucose 94 (70-99) mg/dl Calcium 8.6 (8.5-10.1) mg/dl Total Bilirubin 0.3 (0.2-1) mg/dl AST 11 L (15-37) U/L ALT 24 (12-78) U/L Alkaline Phosphatase 87 (45-117) U/L Total Creatine Kinase 50 (39-308) U/L CK-MB (CK-2) < 1.0 (0.5-3.6) ng/ml CK/CKMB % Calc TNP Troponin I < 0.015 (0-0.045) ng/ml Total Protein 6.1 L (6.4-8.2) gm/dl Albumin 3.3 L (3.4-5.0) gm/dl Globulin 2.8 (2.5-4.0) gm/dl Albumin/Globulin Ratio 1.2 (0.9-2) Lipase 135 (73-393) U/L TSH 2.300 (0.300-4.500) uIu/ml COVID-19 Eval Order COVID-19 PCR (Negative) Blood Type Antibody Screen 12/31/19 12/31/19 12/31/19 Range/Units 11:45 11:45 12:53 WBC (4.8-10.8) K/uL RBC (4.7-6.1) M/uL Hgb (14.0-18.0) g/dL Hct (42-52) % MCV (80-100) fL MCH (25-34) pg MCHC (32-36) g/dL RDW Std Deviation (36.4-46.3) fL RDW Coeff of Mona (11.5-14.5) % Plt Count (130-400) K/uL MPV (7.4-10.4) fL Immature Gran % (Auto) % Neut % (Auto) % Lymph % (Auto) % [place] % (Auto) % Eos % (Auto) % Baso % (Auto) % Neut # (Auto) (1.4-6.5) K/uL Lymph # (Auto) (1.2-3.4) K/uL [place] # (Auto) (0.11-0.59) K/uL Eos # (Auto) (0-0.5) K/uL Baso # (Auto) (0-0.2) K/uL Immature Gran # (Auto) (0.00-0.02) K/uL PT (9.0-12.0) Seconds INR (0.9-1.1) APTT (21.0-31.0) Seconds PTT Ratio Sodium (136-145) mmol/L Potassium (3.5-5.1) mmol/L Chloride (98-107) mmol/L Carbon Dioxide (21-32) mmol/L Anion Gap (3-11) BUN (7-18) mg/dl Creatinine (0.6-1.4) mg/dl Est Cr Clr Drug Dosing ml/min Est GFR ( Amer) Est GFR (Non-Af Amer) BUN/Creatinine Ratio (10-20) Glucose (70-99) mg/dl Calcium (8.5-10.1) mg/dl Total Bilirubin (0.2-1) mg/dl AST (15-37) U/L ALT (12-78) U/L Alkaline Phosphatase (45-117) U/L Total Creatine Kinase (39-308) U/L CK-MB (CK-2) (0.5-3.6) ng/ml CK/CKMB % Calc Troponin I (0-0.045) ng/ml Total Protein (6.4-8.2) gm/dl Albumin (3.4-5.0) gm/dl Globulin (2.5-4.0) gm/dl Albumin/Globulin Ratio (0.9-2) Lipase (73-393) U/L TSH (0.300-4.500) uIu/ml COVID-19 Eval Order Covid19 Done at [facility] COVID-19 PCR NEGATIVE (Negative) Blood Type O Positive Antibody Screen NEGATIVE Imaging Data Radiologist's Impression: [place], [place] [phone] XRay Report Patient: VARUN MORENO V Admit Date: 12/31/19 MR#: [id number] Address1: Count includes the [facility] [address] Acct ID:[id number] Address2: Date: 1960 [facility] Zip: [place] [address] Age: 59 Location: ED Sex: M Room/Bed: Att Phy: Diagnosis: A FIB [place] Phy: Diane Bañuelos MD Service Date: 12/31/19 Fam Phy: Interpreting Phy: Mega Villaseñor Admit Phy: Ordering Phy: Lamberto Wright MD cc: ~ XR chest 1V portable HISTORY: 59 years-old Male Chest Pain acute atypical chest pain COMPARISON: Chest radiographs 02/09/2017 TECHNIQUE: Portable AP view of the chest FINDINGS: Cardiomediastinal and hilar silhouettes are within normal limits. No pneumothorax, pleural effusion, airspace consolidation or overt pulmonary edema. Bones of the chest appear grossly intact. IMPRESSION: No acute process. ACT 112: Negative or not required by law. The above report was generated using voice recognition software. It may contain grammatical, syntax or spelling errors. Electronically signed by: Darshan Villaseñor M.D. 12/31/2019 12:43 PM Dictated: 12/31/19 1242 Transcribed: 12/31/191241 ECG Data Attestation: I personally reviewed and interpreted this ECG as follows: Indication: + weakness Rate (beats per minute): 70 Rhythm: + normal sinus ECG [place]: + Normal ECG ST segments: no ST depression and no ST elevation Comparison ECG Date: from (05/14/2017) Change: no significant change MDM Narrative Patient was seen and evaluated as above in room B2. Review was performed of nursing notes and vital signs. I did review pertinent previous visits and patient history. After obtaining a thorough history and physical examination the above work up was performed. This is a 59-year-old male who presents emergency department with a number of complaints however he was found to be acutely anemic with a GI bleed. He was started on Protonix bolus and drip. Because his hemoglobin is decreased he was typed and screened. I did discuss the case with the hospitalist service who did agree to meet the patient. Patient is in agreement with the treatment plan. While in the department, I personally reevaluated the patient several times and each time the patient was found to be resting comfortably. The patient was educated upon management, educated upon todays findings/results, educated upon importance of follow up from today's visit, educated upon symptoms in which to return, had questions answered prior to discharge, verbalized understanding, and was discharged home in good condition. An order was placed for continuous cardiac monitoring. The monitor shows a rate of 68 with Normal SInus rhythm. The patient was evaluated during the global COVID-19 pandemic, and that diagnosis was suspected/considered upon their initial presentation. Their evaluation, treatment and testing was consistent with current guidelines for pa tients who present with complaints or symptoms that may be related to COVID-19. Impression & Plan Acute blood loss anemia, GI bleed Discharge Plan Visit Data Chief Complaint: Arrhythmia/Palpitations Stated Complaint: A FIB ED Provider: Lamberto Wright Discharge Problem: Acute blood loss anemia, GI bleed Forms Stand Alone Forms: My [facility] Prescriptions Prescriptions: No Action lisinopril 20 mg tablet 20 mg PO QAM Qty: 90 RF: 1 omeprazole 20 mg capsule,delayed release(DR/EC) 40 mg PO HS Qty: 180 RF: 1 ezetimibe 10 mg tablet 10 mg PO QAM Qty: 90 RF: 3 Vitamin C 1,000 mg Tablet Extended Release 1 tab PO QAM RF: 0 aspirin 81 mg Tablet,Delayed Release (Dr/Ec) 81 mg PO QAM RF: 0 Multivitamin 50 Plus Tablet 1 tab PO QAM RF: 0 coenzyme Q10 [CoQ-10] 100 mg Capsule 1 cap PO 3XWK RF: 0 Ocuvite Eye Plus Multi 200-15-150 mcg Tablet 1 tab PO 4XWK RF: 0 aspirin 325 mg Tablet 325 mg PO DAILY PRN (Reason: Pain) RF: 0 metoprolol tartrate 50 mg tablet 100 mg PO QAM RF: 0 Discharge Problem: GI bleed Qualifiers: GI bleed type/associated pathology: unspecified gastrointestinal hemorrhage type Qualified Code(s): K92.2 - Gastrointestinal hemorrhage, unspecified
[2019-12-31] MEDS ORDERED: SODIUM CHLORIDE 0.9% 250 ML IV PRN ×2 (16:34→19:01)
[2019-12-31] MEDS ORDERED: ONDANSETRON INJ 2 MG/ML 2 ML VIAL IV PRN (16:34)
[2019-12-31] MEDS: SODIUM CHLORIDE 0.9% 1000ML 1,000 ML IV SCH (16:59)
[2019-12-31] MEDS: PANTOprazole 40 MG in SYRINGE 0 ML IV SCH (18:00)
[2019-12-31] MEDS ORDERED: ACETAMINOPHEN 1000 MG/100 ML IV IV PRN (19:27)
[2020-01-01 07:08] LABS: Hematocrit (blood only) 27.8 % (42-52); Hemoglobin 9.5 g/dL (14.0-18.0); Mean Corpuscular Hemoglobin 31.3 pg (25-34); Mean Corpuscular Hgb Conc 34.2 g/dL (32-36); Mean Corpuscular Volume 91.4 fL (80-100); Platelet Count 214 K/uL (130-400); RDW Standard Deviation 47.9 fL (36.4-46.3); Red Blood Count 3.04 M/uL (4.7-6.1); White Blood Count 5.38 K/uL (4.8-10.8)
[2020-01-01] MEDS: SODIUM CHLORIDE 0.9% 1000ML 1,000 ML IV SCH ×3 (07:31→23:03)
[2020-01-01 07:34] LABS: BUN Creatinine Ratio 16.9 (10-20); Calcium 7.9 mg/dl (8.5-10.1); Creatinine Clr Calc Pharmacy 59.2 ml/min; Est GFR (African American) 72.8; Est GFR (Non-African American) 62.8; Potassium 4.1 mmol/L (3.5-5.1)
[2020-01-01] MEDS: PANTOprazole 40 MG in SYRINGE 0 ML IV SCH ×2 (08:34→20:54)
[2020-01-01] MEDS: METOPROLOL TARTRATE 25 MG TAB PO SCH (10:10)
--- NOTE | 2020-01-01 10:20 | Gastrointestinal Consultation ---
Date of Consultation January 01, 2020 Assessment & Plan (1) Acute blood loss anemia: -Keep NPO for EGD today -Follow H/H -Would recommend Protonix 40 mg BID -Further recommendations pending EGD Present on Admission?: Yes Supervising Physician Co-Signing Physician Notes Agree with RYDER Prakash Abd: Soft, NT, ND, +BS Continue current therapy Proceed with EGD now History of Present Illness Reason for Consultation: Anemia Attending Physician: Larry Tilley History of Present Illness Patient is a 59 yo male who presented to [facility] after several days of progressive weakness, fatigue, & green/dark bowel movements. He notes he had previously attributed the bowel changes to spinach. He notes associated symptoms of palpitations and labile blood pressure, but he denies abdominal pain, reflux, h eartburn, or other GI symptoms at present. He denies NSAID use (does take a baby Aspirin). He had a colonoscopy in July 2018 that indicated 2 polyps, diverticulosis, & internal hemorrhoids. I do not have records of any previous EGDs, but patient did have EUS/ERCP several years ago under the care of a different GI provider. He has been NPO. His hemoglobin on admission was 8.4 and is now 9.5. Last hemoglobin in our system previously was 12.6 in 2017. He denies pertinent family history. Allergies Allergy/AdvReac Type Severity Reaction Status Date / Time codeine Allergy Mild itching Verified 12/31/19 12:20 Sicnuyw-Rmi-Jis Reductase Allergy Mild Rash Verified 12/31/19 12:20 Inhibitor morphine AdvReac Mild Vomiting Verified 12/31/19 12:20 ranitidine [From Zantac] AdvReac Unknown Unknown Unverified 12/31/19 12:20 zolpidem [From Ambien] AdvReac Unknown Unknown Verified 12/31/19 12:20 Home Medications Home Medications Medication Instructions Recorded Confirmed Type Multivitamin 50 Plus 1 tab PO QAM 06/30/18 12/31/19 History Ocuvite Eye Plus Multi 1 tab PO 4XWK 06/30/18 12/31/19 History Vitamin C 1 tab PO QAM 06/30/18 12/31/19 History aspirin 81 mg PO QAM 06/30/18 12/31/19 History coenzyme Q10 [CoQ-10] 1 cap PO 3XWK 06/30/18 12/31/19 History lisinopril 20 mg tablet 20 mg PO QAM #90 tab 08/31/19 12/31/19 Rx omeprazole 20 mg capsule,delayed 40 mg PO HS #180 cap 10/01/19 12/31/19 Rx release ezetimibe 10 mg tablet 10 mg PO QAM #90 tab 11/27/19 12/31/19 Rx aspirin 325 mg PO DAILY PRN 12/31/19 12/31/19 History metoprolol tartrate 100 mg PO QAM 12/31/19 12/31/19 History Patient History Medical History Allergic rhinitis Anxiety BPH (benign prostatic hyperplasia) Cholangitis Cholelithiasis Chronic diarrhea Chronic renal insufficiency Elevated creatine kinase level GERD (gastroesophageal reflux disease) Hemorrhoids Hepatitis Hypercholesterolemia Hyperglycemia Hyperlipidemia Hypertension Kidney stones Sciatic nerve pain Surgical History (Updated 01/01/20 @ 11:49 by Laura Toledo DO) H/O sinus surgery History of cholecystectomy 2017 History of colonoscopy History of ERCP History of esophagogastroduodenoscopy (EGD) History of hernia repair as an infant History of lithotripsy x2 History of oral surgery History of wisdom tooth extraction Family History Father Sinusitis Hypertension Myocardial infarction Other No family history of adverse response to anesthesia No family history of bleeding disorder Denies family history of Ovarian cancer Prostate cancer Social History (Updated 08/31/19 @ 08:07 by Shobha Villagran) Smoking Status: Never smoker Second Hand Exposure: No; Hx Alcohol Use: No Hx Substance Use: No Preferred Language: Macedonian Communication Ability: Effective Primer Assembler Required: No Beliefs That Will Affect Care: None Current Living Situation: Spouse and Family Current Living Situation Comment: Lives with and son current occupational status: employed current occupation: IT Tech Other Information That Helps Us Care for You: No Feels Safe at Home: Yes Safety Concerns: Feels Safe At This Time Childhood Exposure to Second-Hand Smoke: No Dental Care, Regularly: Yes Physical Activity Frequency: 3-4 Times per Week Seatbelt Use: always Sunscreen Use: Yes Assistive Devices: Glasses Review of Systems Constitutional: no fever and no chills Eyes: no problem reported Ear, Nose, Mouth, Throat: no problem reported Respiratory: no cough and no dyspnea Cardiovascular: no chest pain Gastrointestinal: + melena; no abdominal pain, no belching, no bloating, no nausea and no vomiting Musculoskeletal: no problem reported Integumentary: no problem reported Psychiatric: no problem reported Hematologic / Lymphatic: no unexplained weight loss Physical Exam Constitutional: WD/WN, vitals as above Eyes: PERRL, conjunctivae normal, anicteric sclerae Neck: normal visual inspection Respiratory: normal respiratory effort, lungs clear to auscultation Cardiovascular: Extremities: no edema Gastrointestinal (Abdomen): Inspection/Auscultation: abdomen normal to inspection Musculoskeletal: Head/Neck/Chest: normocephalic Skin: no rashes Neurologic: Speech / Cognition: normal speech Motor/Sensory: no tremor Psychiatric: A+Ox3, euthymic affect Results & Data ([facility]) Vital Signs (Past 12 Hours) Vital Signs Temp Pulse Pulse Resp BP BP Pulse Ox 01/01/20 08:02 36.8 C 65 19 145/72 H 99 01/01/20 08:01 69 01/01/20 03:50 36.6 C 61 18 131/77 94 01/01/20 03:00 66 01/01/20 01:05 36.8 C 65 18 105/65 99 01/01/20 00:49 36.9 C 58 L 16 105/65 98 12/31/19 23:49 37.0 C 69 16 109/68 99 12/31/19 23:28 36.8 C 72 18 110/63 97 12/31/19 23:19 37.0 C 58 L 16 112/68 98 12/31/19 23:04 36.9 C 63 16 110/61 99 12/31/19 22:50 37.0 C 64 16 105/68 99 12/31/19 22:47 37.0 C 59 L 16 116/66 99 12/31/19 22:45 37.0 C 59 L 16 116/66 99 PG Care Time/CCT Total # of Minutes Spent Total Time Spent with Patient: Total time spent is greater than 50% in coordination of care (as documented) at patient's floor/unit and/or counseling patient: Coding Level of Care Code 83446 Inpt Consult Level 4 Diagnoses Acute blood loss anemia D62
--- NOTE | 2020-01-01 10:32 | Anesthesiology Consultation ---
Date of Service January 01, 2020 Assessment & Plan Chart Review Chart Review: Acceptable Risk for Surgery Consults Requested none ASA ASA3 Proposed Anesthesia Anesthesia Type: MAC Risk / Benefits Reviewed With: PT / POA / Parent / Guardian, Accepts Plan and Informed Consent Obtained History Surgery Operation Date: 01/01/20 17:15 Proposed Procedures p Esophagogastroduodenoscopy Dr Pickett - Will Velázquez Case, DO Height/Weight Height: 5 ft 7 in Weight: 75.8 kg Allergies Allergy/AdvReac Type Severity Reaction Status Date / Time codeine Allergy Mild itching Verified 12/31/19 12:20 Abrswar-Vdr-Fyq Reductase Allergy Mild Rash Verified 12/31/19 12:20 Inhibitor morphine AdvReac Mild Vomiting Verified 12/31/19 12:20 ranitidine [From Zantac] AdvReac Unknown Unknown Unverified 12/31/19 12:20 zolpidem [From Ambien] AdvReac Unknown Unknown Verified 12/31/19 12:20 Medications Home Medications Medication Instructions Recorded Confirmed Last Taken Multivitamin 50 Plus 1 tab PO QAM 06/30/18 12/31/19 12/31/19 Ocuvite Eye Plus Multi 1 tab PO 4XWK 06/30/18 12/31/19 12/31/19 Vitamin C 1 tab PO QAM 06/30/18 12/31/19 12/31/19 aspirin 81 mg PO QAM 06/30/18 12/31/19 07/10/18 09:00 coenzyme Q10 [CoQ-10] 1 cap PO 3XWK 06/30/18 12/31/19 12/30/19 lisinopril 20 mg tablet 20 mg PO QAM #90 tab 08/31/19 12/31/19 12/31/19 omeprazole 20 mg capsule,delayed 40 mg PO HS #180 cap 10/01/19 12/31/19 12/30/19 release ezetimibe 10 mg tablet 10 mg PO QAM #90 tab 11/27/19 12/31/19 12/31/19 aspirin 325 mg PO DAILY PRN 12/31/19 12/31/19 12/31/19 metoprolol tartrate 100 mg PO QAM 12/31/19 12/31/19 12/31/19 Active Medications Generic Name Dose Route Start Last Admin Trade Name Freq PRN Reason Stop Dose Admin Acetaminophen 1,000 mg 12/31/19 19:27 12/31/19 19:41 Acetaminophen 1000 Mg/100 Ml Iv IV 01/03/20 19:26 1,000 mg Q8 PRN Administration Moderate Pain Sodium Chloride 1,000 mls @ 100 mls/hr 12/31/19 16:34 01/01/20 07:31 Nss 1000ml IV 01/30/20 16:33 100 mls/hr .Q10H NIRU Administration Pantoprazole Sodium 40 mg/ 10 mls @ 5 mls/min 12/31/19 18:00 01/01/20 08:34 Syringe IV 01/30/20 17:59 5 mls/min BID NIRU Administration Metoprolol Tartrate 25 mg 01/01/20 09:00 01/01/20 10:10 Metoprolol Tartrate 25 Mg Tab PO 01/31/20 08:59 Not Given DAILY NIRU NPO Date Last Intake of Fluids: 12/31/19 Time Last Intake of Fluids: 09:30 Date Last Intake of Solids: 12/31/19 Past Medical History Medical History Allergic rhinitis Anxiety BPH (benign prostatic hyperplasia) Cholangitis Cholelithiasis Chronic diarrhea Chronic renal insufficiency Elevated creatine kinase level GERD (gastroesophageal reflux disease) Hemorrhoids Hepatitis Hypercholesterolemia Hyperglycemia Hyperlipidemia Hypertension Kidney stones Sciatic nerve pain Exercise / Class Metabolic Activity II 4-5 Yardwork/Stairs/Walk up hill Past Family History Family History Father Sinusitis Hypertension Myocardial infarction Other No family history of adverse response to anesthesia No family history of bleeding disorder Denies family history of Ovarian cancer Prostate cancer Past Surgical History Surgical History (Updated 01/01/20 @ 11:49 by Laura Toledo DO) H/O sinus surgery History of cholecystectomy 2017 History of colonoscopy History of ERCP History of esophagogastroduodenoscopy (EGD) History of hernia repair as an infant History of lithotripsy x2 History of oral surgery History of wisdom tooth extraction Past Anesthesia History No Hx of Anesthesia Complications and No Family Hx of Anesthesia Complications History of PONV No Hx of PONV and No Hx of Motion Sickness Social History Smoking Status: Never smoker Hx Alcohol Use: No Alcohol type: wine Hx Substance Use: No substance use type: does not use Physical Exam Vital Signs Last Vital Signs Temp 36.8 C 01/01/20 11:21 Pulse 70 01/01/20 11:21 Resp 20 01/01/20 11:21 BP 178/76 H 01/01/20 11:21 Pulse Ox 100 01/01/20 11:21 ENMT Mouth: no TMJ abnormality Thyromental Distance: > or= 3.5 Finger Breadths Mallampati Class: II Neck normal visual inspection and trachea midline; neck extension not limited Respiratory normal respiratory effort Auscultation: lungs clear to auscultation bilaterally Cardiovascular Rate/Rhythm: regular rate and regular rhythm Heart Sounds: no murmur Musculoskeletal Spine: normal cervical ROM Extremities: full ROM of extremities Neurologic moves all extremities Psychiatric Orientation: alert and oriented x 3 Testing Laboratory Results 01/01/20 06:23 01/01/20 06:23 PT 10.9 Seconds (9.0-12.0) 12/31/19 11:00 INR 1.0 (0.9-1.1) 12/31/19 11:00 APTT 23.3 Seconds (21.0-31.0) 12/31/19 11:00 Blood Type O Positive 12/31/19 12:53 Antibody Screen NEGATIVE 12/31/19 12:53
[2020-01-01] MEDS ORDERED: PROPOFOL IV EMULSION 10 MG/ML 20 ML VIAL IV ONE (12:17)
[2020-01-01] MEDS ORDERED: LIDOCAINE HCL 2% 2 ML VIAL/AMP(20MG/ML) INFIL ONE (12:17)
--- NOTE | 2020-01-01 12:48 | GI REPORT ---
Patient Name: Jairo Thibodeaux Procedure Date: 01/01/2020 12:24 PM Date of : 1960 Admit Type: Inpatient Age: 59 Gender: Male Attending MD: Will Pickett DO Procedure: Upper GI endoscopy Providers: Will Pickett DO Referring MD: Larry Tilley Indications: Acute post hemorrhagic anemia Medicines: Monitored Anesthesia Care Complications: No immediate complications. Estimated Blood Loss: Estimated blood loss: none. Procedure: Pre-Anesthesia Assessment: - Prior to the procedure, a History and Physical was performed, and patient medications and allergies were reviewed. The patient's tolerance of previous anesthesia was also reviewed. The risks and benefits of the procedure and the sedation options and risks were discussed with the patient. All questions were answered, and informed consent was obtained. Prior Anticoagulants: The patient has taken no previous anticoagulant or antiplatelet agents except for aspirin. ASA Grade Assessment: III - A patient with severe systemic disease. After reviewing the risks and benefits, the patient was deemed in satisfactory condition to undergo the procedure. After obtaining informed consent, the endoscope was passed under direct vision. Throughout the procedure, the patient's blood pressure, pulse, and oxygen saturations were monitored continuously. The Endoscope was introduced through the mouth, and advanced to the third part of duodenum. The upper GI endoscopy was accomplished without difficulty. The patient tolerated the procedure well. Findings: The esophagus was normal. The stomach was normal. A 15 mm non-bleeding diverticulum was found in the area of the papilla. The exam was otherwise without abnormality. Impression: - Normal esophagus. - Normal stomach. - Non-bleeding duodenal diverticulum. - The examination was otherwise normal. - No specimens collected. Recommendation: - [facility]. - Advance diet as tolerated. - Continue present medications. Will Pickett DO 01/01/2020 12:47:43 PM This report has been signed electronically. Note Initiated On: 01/01/2020 12:24 PM Number of Addenda: 0 I attest to the content of the Intraoperative Record and orders documented therein, exceptions below {[id number]}
--- NOTE | 2020-01-01 12:54 | Anesthesiology Progress Note ---
Date of Service January 01, 2020 Anesthesia Post Procedure Vital Signs Vital Signs: Temp Pulse Pulse Resp BP BP Pulse Ox 01/01/20 12:49 73 16 125/73 99 01/01/20 11:21 36.8 C 70 20 178/76 H 100 01/01/20 08:02 36.8 C 65 19 145/72 H 99 01/01/20 08:01 69 01/01/20 03:50 36.6 C 61 18 131/77 94 01/01/20 03:00 66 01/01/20 01:05 36.8 C 65 18 105/65 99 01/01/20 00:49 36.9 C 58 L 16 105/65 98 12/31/19 23:49 37.0 C 69 16 109/68 99 12/31/19 23:28 36.8 C 72 18 110/63 97 12/31/19 23:19 37.0 C 58 L 16 112/68 98 12/31/19 23:04 36.9 C 63 16 110/61 99 12/31/19 22:50 37.0 C 64 16 105/68 99 12/31/19 22:47 37.0 C 59 L 16 116/66 99 12/31/19 22:45 37.0 C 59 L 16 116/66 99 12/31/19 21:50 37.1 C 57 L 16 123/71 98 12/31/19 21:20 37.0 C 64 18 113/64 99 12/31/19 21:05 37.0 C 61 16 111/66 99 12/31/19 20:45 37.1 C 78 18 146/67 H 100 12/31/19 19:13 37.0 C 62 19 117/67 99 12/31/19 17:16 76 12/31/19 17:04 37.0 C 63 18 120/68 100 12/31/19 16:01 67 14 100 12/31/19 16:00 66 18 125/65 100 12/31/19 15:31 64 14 100 12/31/19 15:30 67 16 124/73 100 12/31/19 15:01 65 15 100 12/31/19 15:00 64 11 L 118/65 100 12/31/19 14:30 74 18 128/77 100 12/31/19 14:00 65 9 L 106/69 100 12/31/19 13:39 73 16 121/64 96 12/31/19 13:31 69 19 100 12/31/19 13:30 66 11 L 121/64 100 12/31/19 13:08 70 16 132/81 97 12/31/19 13:00 68 14 132/66 100 Transfer of Care Handoff Completed per policy Notes Mental Status: alert / awake / arousable and participated in evaluation Nausea / Vomiting: adequately controlled Pain: adequately controlled Airway Patency, RR, SpO2: stable & adequate BP & HR: stable & adequate Hydration State: stable & adequate Anesthetic Complications: no major complications apparent
[2020-01-01 17:26] LABS: Hemoglobin 9.5 g/dL (14.0-18.0)
[2020-01-01 17:53] LABS: Ferritin 28.9 ng/ml (8-388)
[2020-01-01] MEDS ORDERED: IRON SUCROSE 200 MG in 0.9 % SODIUM CHLORIDE 100 ML IV ONE (20:00)
--- NOTE | 2020-01-01 23:33 | Hospitalist Progress Note ---
Date of Service January 01, 2020 Assessment & Plan (1) Acute blood loss anemia: Presumed GI blood loss in origin. Lowest Hb 7.6. s/p 2 units PRBCs yesterday. Hb this am and this afternoon 9.5. Appreciate GI consultation by Dr Pickett. s/p EGD without source of bleeding. Plan - stop IV protonix; revert back to PO protonix. Allow clears. Reduce IVF rate. Repeat cbc am. IV venofer -- iron studies c/w Fe deficiency. Spoke with Dr Pickett -- if patient re-bleeds then tagged RBC scan. If no additional bleeding then potentially outpatient colonoscopy +/- capsule endoscopy. Of note -- last colonoscopy, 07/2018. Multiple polyps removed. These were tubular adenomas. Also had diverticulosis. Continue to hold aspirin. (2) GI bleed: EGD negative for bleeding. Likely small bowel in origin. AVM? Other? Could consider CT scan of abd/pelvis. If any re-bleeding then tagged RBC scan. If no rebleeding - outpatient colonoscopy +/- capsule endoscopy. Repeat CBC in am. (3) Iron deficiency: Ferritin 28 c/w mod-severe Fe deficiency. IV venofer today and tomorrow. Follow serial cbcs. Fe deficiency 2nd to GI blood loss. (4) Hypertension: Continue metoprolol. May need to restart lisinopril in am. (5) GERD (gastroesophageal reflux disease): PPI (6) DVT prophylaxis: SCDs ambulation chemical means contraindicated Admission and Anticipated Discharge Date Admission Date: December 31, 2019 Subjective saw patient post- EGD he was resting comfortably denied abd pain has not had any melena since the start of hospitalization he is concerned that we haven't found the source of the bleeding we had a discussion that his Fe studies are c/w Fe deficiency told him he likely has had GI blood loss for some time he inquired about IV iron as his had such in the past and he is familiar with it Review of Systems Constitutional: no fever Respiratory: no dyspnea Cardiovascular: no chest pain Gastrointestinal: no nausea and no vomiting Physical Exam Constitutional: no acute distress and no altered mental status Neck: webbed Respiratory: normal respiratory effort, lungs clear to auscultation Cardiovascular: Rate/Rhythm: regular rate and regular rhythm Heart Sounds: normal S1 and normal S2; no murmur Vessels: posterior tibial pulses present and dorsalis pedis pulses present; no JVD Extremities: no edema Gastrointestinal (Abdomen): normal bowel sounds, soft, nontender, no hepatosplenomegaly Inspection/Auscultation: abdomen not distended Psychiatric: A+Ox3, euthymic affect Results & Data Results & Data ([facility]) Vital Signs (Past 12 Hours) Vital Signs Temp Pulse Pulse Resp BP Pulse Ox 01/01/20 23:16 37.1 C 87 17 128/80 99 01/01/20 20:00 36.8 C 84 18 141/76 H 93 01/01/20 16:00 36.6 C 80 18 148/74 H 99 01/01/20 13:42 36.6 C 80 20 176/77 H 98 01/01/20 13:22 75 18 154/85 H 98 01/01/20 13:03 70 18 126/82 100 01/01/20 12:49 73 16 125/73 99 Laboratory Results Laboratory Results - last 24 hr 12/31/19 01/01/20 01/01/20 12:53 06:23 06:23 WBC 5.38 RBC 3.04 L Hgb 9.5 L Hct 27.8 L MCV 91.4 MCH 31.3 MCHC 34.2 RDW Std Deviation 47.9 H RDW Coeff of Mona 15.0 H Plt Count 214 MPV 10.0 Sodium 142 Potassium 4.1 Chloride 114 H Carbon Dioxide 25 Anion Gap 4.0 BUN 21 H Creatinine 1.24 Est Cr Clr Drug Dosing 59.2 Est GFR ( Amer) 72.8 Est GFR (Non-Af Amer) 62.8 BUN/Creatinine Ratio 16.9 Glucose 98 Calcium 7.9 L Iron Transferrin Transferrin % Sat Ferritin Crossmatch See Detail 01/01/20 01/01/20 17:14 17:14 WBC RBC Hgb 9.5 L Hct 28.0 L MCV MCH MCHC RDW Std Deviation RDW Coeff of Mona Plt Count MPV Sodium Potassium Chloride Carbon Dioxide Anion Gap BUN Creatinine Est Cr Clr Drug Dosing Est GFR ( Amer) Est GFR (Non-Af Amer) BUN/Creatinine Ratio Glucose Calcium Iron 37 Transferrin 186 L Transferrin % Sat 14 L Ferritin 28.9 Crossmatch PG Care Time/CCT Total # of Minutes Spent Total Time Spent with Patient: Total time spent is greater than 50% in coordination of care (as documented) at patient's floor/unit and/or counseling patient: Coding Level of Care Code 67611 Subseq Hosp Care Lvl 2 Diagnoses Acute blood loss anemia D62 GI bleed K92.2 GI bleed type/associated pathology: unspecified gastrointestinal hemorrhage type Iron deficiency E61.1 Hypertension I10 GERD (gastroesophageal reflux disease) K21.9 DVT prophylaxis Z29.9 (1) GI bleed GI bleed type/associated pathology: unspecified gastrointestinal hemorrhage type Qualified Code(s): K92.2 - Gastrointestinal hemorrhage, unspecified
[2020-01-02 06:01] LABS: Hematocrit (blood only) 27.7 % (42-52); Hemoglobin 9.5 g/dL (14.0-18.0); Mean Corpuscular Hemoglobin 31.5 pg (25-34); Mean Corpuscular Hgb Conc 34.3 g/dL (32-36); Mean Corpuscular Volume 91.7 fL (80-100); Mean Platelet Volume 9.7 fL (7.4-10.4); Platelet Count 228 K/uL (130-400); RDW Coefficient of Variation 15.2 % (11.5-14.5); RDW Standard Deviation 48.4 fL (36.4-46.3); Red Blood Count 3.02 M/uL (4.7-6.1); White Blood Count 5.67 K/uL (4.8-10.8)
[2020-01-02 06:36] LABS: BUN Creatinine Ratio 12.2 (10-20); Calcium 7.7 mg/dl (8.5-10.1); Est GFR (Non-African American) 74.2; Potassium 3.7 mmol/L (3.5-5.1)
[2020-01-02] MEDS: METOPROLOL TARTRATE 25 MG TAB PO SCH (08:59)
[2020-01-02] MEDS ORDERED: IRON SUCROSE 300 MG in SODIUM CHLORIDE 0.9% 250 ML IV ONE (09:00)
[2020-01-02] MEDS ORDERED: PANTOprazole 40 MG TAB PO SCH (09:00)
--- NOTE | 2020-01-02 12:39 | Anesthesiology Progress Note ---
Date of Service January 02, 2020 Anesthesia Post Procedure Vital Signs Vital Signs: Temp Pulse Pulse Resp BP Pulse Ox 01/02/20 12:00 37.3 C 63 18 155/75 H 99 01/02/20 08:00 36.3 C L 92 H 20 152/74 H 98 01/02/20 04:00 37.2 C 68 18 149/72 H 99 01/01/20 23:16 37.1 C 87 17 128/80 99 01/01/20 20:00 36.8 C 84 18 141/76 H 93 01/01/20 16:00 36.6 C 80 18 148/74 H 99 01/01/20 13:42 36.6 C 80 20 176/77 H 98 01/01/20 13:22 75 18 154/85 H 98 01/01/20 13:03 70 18 126/82 100 01/01/20 12:49 73 16 125/73 99 Transfer of Care Handoff Completed per policy Notes Mental Status: alert / awake / arousable and participated in evaluation Patient Amnestic to Procedure: Yes Nausea / Vomiting: adequately controlled Pain: adequately controlled Airway Patency, RR, SpO2: stable & adequate BP & HR: stable & adequate Hydration State: stable & adequate Anesthetic Complications: no major complications apparent and Pt Satisfied with anesthetic care
--- NOTE | 2020-01-02 16:16 | Discharge Summary ---
Date of Service January 02, 2020 Admission HPI Per Admitting Provider 59-year-old male who said about a week's worth of dark bowel movements which initially attributed to eating spinach who presents with multiple somatic complaints having labile blood pressure over the last 1 week having to self discontinue his antihypertensives due to low blood pressure which are lisinopril and metoprolol. Patient is markedly pale and is found to be anemic in the emergency department hemoglobin of 8.2 his repeat hemoglobin was below 8 g and will be transfused 2 units. Be kept n.p.o. after midnight the patient denies any significant nonsteroidal use alcohol use caffeine use. Patient has no si gnificant upper abdominal pain which makes me concerned this might be a lower GI bleed rather than upper. He will be kept n.p.o. and GI consult be undertaken Principal Diagnosis Presumed upper GI bleed Discharge Exam Constitutional WD/WN, vitals as above Eyes EOM intact bilaterally; no conjunctival abnormality ENMT external ear and nose normal, oropharynx normal Neck trachea midline, no thyromegaly normal visual inspection Respiratory normal respiratory effort, lungs clear to auscultation no respiratory distress Cardiovascular RRR, no murmur, no edema Gastrointestinal (Abdomen) Inspection/Auscultation: abdomen normal to inspection; abdomen not distended Musculoskeletal no cyanosis or clubbing, extremities motor strength 5/5 Skin no rashes, warm and dry Neurologic moves all extremities and awake Psychiatric Orientation: alert, oriented to person and cooperative Discharge Data Allergies Allergy/AdvReac Type Severity Reaction Status Date / Time codeine Allergy Mild itching Verified 12/31/19 12:20 [id number] Reductase Allergy Mild Rash Verified 12/31/19 12:20 Inhibitor morphine AdvReac Mild Vomiting Verified 12/31/19 12:20 ranitidine [From Zantac] AdvReac Unknown Unknown Unverified 12/31/19 12:20 zolpidem [From Ambien] AdvReac Unknown Unknown Verified 12/31/19 12:20 Consultations 12/31/19 12:38 ED Decision to Admit Stat 12/31/19 16:34 Consult Gastroenterology Routine Procedures Performed Operation Date: 01/01/20 17:15 Actual Procedures p Esophagogastroduodenoscopy - Will Velázquez Case, DO Hospital Course (1) Acute blood loss anemia: Presumed GI blood loss in origin. Lowest Hb 7.6. s/p 2 units PRBCs on 12/30. Hb this am and this afternoon 9.5. S/p EGD without source of bleeding. Of note -- last colonoscopy, 07/2018. Multiple polyps removed. These were tubular adenomas. Also had diverticulosis. - Follow up outpatient with Dr. Pickett for possible repeat colonoscopy vs. capsule endoscopy vs both. - Continue to hold aspirin. (2) GI bleed: EGD negative for bleeding. Likely small bowel in origin. AVM? Other? - As above (3) Iron deficiency: Ferritin 28 c/w mod-severe Fe deficiency. IV venofer today and tomorrow. Follow serial cbcs. Fe deficiency 2nd to GI blood loss. (4) Hypertension: Continue metoprolol. - Restarted lisinopril on discharge. (5) GERD (gastroesophageal reflux disease): PPI (6) DVT prophylaxis: SCDs ambulation chemical means contraindicated Total Time Total Time Spent Total Time Spent (In Minutes): 35 Discharge Plan Discharge Items Patient Disposition: Home - Self-Care Reason For Visit: ACUTE BLOOD LOSS ANEMIA Discharge Diagnosis: Concern for a small bowel bleed Activity: Resume your previous activity Non-emergency contact: Primary Care Provider and Firmware Developer Call non-emergency contact if: your symptoms worsen Follow-up/Referrals: Will Pickett, [Physician] - (Please see Dr. Pickett in 1-2 weeks to follow up on your EGD and discuss further testing.) Diane Bañuelos MD [Primary Care Provider] - Diet: Regular Addtl Attending Provider Instructions: Mr. Thibodeaux, Christophe were admitted to the hospital with concern for an upper stomach/small in testine bleed. You had an "EGD" or "scope" done yesterday which did not show any sign of bleeding. Your red-blood cells have been stable for yesterday and today after receiving two units of blood. The small intestine is very long and cannot be reached entirely be a scope. Additionally, you may have had some bleeding in your colon. Dr. Pickett would like you to see him in the office to discuss further testing of the colon and small intestine. Please see Dr. Pickett in 1-2 weeks to follow up on your EGD and discuss further testing, such as a capsule endoscopy. Given we feel you had a source of bleeding that we could not find, please hold off on your baby aspirin and any full-strength aspirin until you see Dr. Pickett in the clinic. For any pain or headache, Tylenol is a safe alternative when taking within the normal dosing instructions on the bottle. You may have some mild, decreasing amounts of black stool for another day or two as your body gets rid of all the old blood. Please call Dr. Pickett's office or return to the ER if you have increasing amounts of dark, tarry stool, throw up anything bloody, get dizzy, lightheaded, or any other concerning symptoms. Pending Studies at Discharge: No Stand-Alone Forms: My [facility] [employer], Smoking Cessation Medications and DC Order Prescriptions: Continued lisinopril 20 mg tablet 20 mg PO QAM Qty: 90 RF: 1 omeprazole 20 mg capsule,delayed release(DR/EC) 40 mg PO HS Qty: 180 RF: 1 ezetimibe 10 mg tablet 10 mg PO QAM Qty: 90 RF: 3 Vitamin C 1,000 mg Tablet Extended Release 1 tab PO QAM RF: 0 Multivitamin 50 Plus Tablet 1 tab PO QAM RF: 0 coenzyme Q10 [CoQ-10] 100 mg Capsule 1 cap PO 3XWK RF: 0 Ocuvite Eye Plus Multi 200-15-150 mcg Tablet 1 tab PO 4XWK RF: 0 metoprolol tartrate 50 mg tablet 100 mg PO QAM RF: 0 Discontinued aspirin 81 mg Tablet,Delayed Release (Dr/Ec) 81 mg PO QAM RF: 0 aspirin 325 mg Tablet 325 mg PO DAILY PRN (Reason: Pain) RF: 0 Discharge Orders: Discharge Order (Routine); Ordered 01/02/20 Ordered By: Kev Blanchard Admission Data Admit Date/Time: 12/31/19 14:19 Attending Provider: Kev Blanchard Admit Provider: Sang Lopez Primary Care Provider: Diane Bañuelos Other Providers: Will Pickett ; Kev Blanchard Other Interventions: Discharge Summary Assessment (RN) Last Done: 01/02/20 15:15 Coding Level of Care Code D/C Day Management >30 mins Diagnoses Acute blood loss anemia D62 GI bleed K92.2 GI bleed type/associated pathology: unspecified gastrointestinal hemorrhage type Iron deficiency E61.1 Hypertension I10 GERD (gastroesophageal reflux disease) K21.9 DVT prophylaxis Z29.9
[2020-01-02 16:28] LABS: Hematocrit (blood only) 31.2 % (42-52); Hemoglobin 10.5 g/dL (14.0-18.0)
== END 2020-01-02 17:21 | disposition home or self-care (01) | DRG 811 ==
LOC: ED 10:35 → SUATTDRO 14:19 → 2S 14:19
DX: E78.5 Hyperlipidemia, unspecified; Z88.8 Allergy status to other drugs, medicaments and biological substances; E61.1 Iron deficiency; Z79.899 Other long term (current) drug therapy; Z88.5 Allergy status to narcotic agent; N40.0 Benign prostatic hyperplasia without lower urinary tract symptoms; I12.9 Hypertensive chronic kidney disease with stage 1 through stage 4 chronic kidney disease, or unspecified chronic kidney disease; Z86.010 Personal history of colon polyps; D62 Acute posthemorrhagic anemia; K57.11 Diverticulosis of small intestine without perforation or abscess with bleeding; E78.00 Pure hypercholesterolemia, unspecified; Z82.49 Family history of ischemic heart disease and other diseases of the circulatory system; Z79.82 Long term (current) use of aspirin; K55.21 Angiodysplasia of colon with hemorrhage; N18.30 Chronic kidney disease, stage 3 unspecified; K21.9 Gastro-esophageal reflux disease without esophagitis